=== PATIENT | male | born 1935 | race Caucasian/White ===

== ENCOUNTER 2019-05-18 18:53 | Inpatient (IN) | payer MEDICARE, OTHER ==
[~2019-05-18] VITALS: Ht 178 cm; Wt 78.0 kg
[~2019-05-18 18:53] MED LIST: GBPN300C PO; LEVO500T69 PO; PRD10T PO; RT-COMBINH IH; SIMV40TA4 PO; TERA5CAP10 PO; VERA200C2 PO
[2019-05-18] MEDS ORDERED: RT-ALBUTEROL SULF 2.5 MG/3 ML PRE-MIX VIAL INH STA (18:57)
[2019-05-18] MEDS ORDERED: methylPREDNISolone 125 MG (Solu-MEDROL) VIAL IV STA (18:57)
[2019-05-18] MEDS ORDERED: RT-ALBUTEROL/IPRATROPIUM 3 ML (DUONEB) VIAL INH ONE (19:00)
[2019-05-18] MEDS ORDERED: DEXAMETHASONE 4 MG/ML SDV (DECADRON) ONE (19:02)
[2019-05-18 19:15] LABS: BASOPHILS % (AUTO) 0 % (0-10); EOSINOPHILS # (AUTO) 0.2 10^3/uL (0.0-0.3); EOSINOPHILS % (AUTO) 1 % (0-10); LYMPHOCYTES # (AUTO) 0.4 X 10^3 (1.0-4.0); LYMPHOCYTES % (AUTO) 3 % (12-44); MEAN CORPUSCULAR HEMOGLOBIN 30 PG (25-34); MEAN CORPUSCULAR HGB CONC 31 G/DL (32-36); MEAN CORPUSCULAR VOLUME 99 FL (80-99); MEAN PLATELET VOLUME 8.9 FL (7.4-10.4); MONOCYTES # (AUTO) 1.1 X 10^3 (0.0-1.0); MONOCYTES % (AUTO) 9 % (0-12); NEUTROPHILS # (AUTO) 10.4 X 10^3 (1.8-7.8); NEUTROPHILS % (AUTO) 87 % (42-75); PLATELET COUNT 132 10^3/uL (130-400); RED CELL DISTRIBUTION WIDTH 18.5 % (10.0-14.5)
[2019-05-18] MEDS ORDERED: DEXAMETHASONE 4 MG/ML SDV (DECADRON) IH ONE (19:15)
[2019-05-18 19:16] LABS: HEMATOCRIT 20 % (40-54); HEMOGLOBIN 6.2 G/DL (13.3-17.7)
[2019-05-18 19:22] LABS: ABG BASE EXCESS 1.2 MMOL/L (-2.5-2.5); ABG OXYGEN SATURATION 99 % (94-100); ABG PCO2 43 MMHG (35-45); ABG PH 7.39 (7.37-7.43); ABG PO2 118 MMHG (79-93); ABG TCO2 26.6 MMOL/L (21.0-31.0)
[2019-05-18 19:26] LABS: ALLENS TEST POSITIVE; INSPIRED O2 6; PATIENT TEMP 38.1; VENTILATOR NO
[2019-05-18 19:27] LABS: INR 1.2 (0.8-1.4); PROTHROMBIN TIME PATIENT 15.2 SEC (12.2-14.7)
[2019-05-18 19:33] LABS: ALBUMIN 3.2 GM/DL (3.2-4.5); BILIRUBIN,TOTAL 0.8 MG/DL (0.1-1.0); CALCIUM 7.8 MG/DL (8.5-10.1); MAGNESIUM 1.9 MG/DL (1.6-2.4); TOTAL PROTEIN 5.9 GM/DL (6.4-8.2)
[2019-05-18 19:40] LABS: CREATINE KINASE MB 1.4 NG/ML (<6.6)
[2019-05-18] MEDS ORDERED: lisINopril 20 MG (PRINIVIL) TABLET PO ONE (19:45)
[2019-05-18 19:51] LABS: CREATININE SERUM 2.62 MG/DL (0.60-1.30)
--- NOTE | 2019-05-18 19:51 | Diagnostic Imaging Report ---
INDICATION: Shortness of air. COMPARISON: 09/05/2010. FINDINGS: The heart is enlarged increased from prior. There is development of at least small pleural effusions greater left. There has been formation of perihilar and bibasilar airspace opacities as well as some zones of partial atelectasis. The lung disease could be pneumonia or edema. IMPRESSION: Perihilar and basilar airspace disease, edema versus pneumonia with increased heart size and new pleural effusions greater left. Dictated by: Dictated on workstation # [id number]
[2019-05-18] MEDS ORDERED: CEFEPIME INJECTION 2,000 MG in WATER (STERILE) FOR INJECTION 20 ML IV ONE (20:00)
[2019-05-18] MEDS ORDERED: FUROSEMIDE 40 MG/4 ML INJ (LASIX) IVP ONE (20:00)
[2019-05-18 20:05] LABS: LYMPHOCYTES % (MANUAL) 1 %; MONOCYTES % (MANUAL) 3 %; NEUTROPHILS % (MANUAL) 96 %
[2019-05-18 20:06] LABS: ANISOCYTOSIS MODERATE; ELLIPT/OVALOCYTES MODERATE; POLYCHROMASIA MODERATE
[2019-05-18] MEDS ORDERED: PANTOPRAZOLE 40 MG (PROTONIX) VIAL IV ONE (20:15)
[2019-05-18] MEDS ORDERED: NS IV 1000 ML 1,000 ML IV SCH (20:18)
[2019-05-18 20:23] VITALS: BP 158/98
[2019-05-18 20:30] VITALS: BP 155/56
[2019-05-18] MEDS ORDERED: LEVOFLOXACIN 750 MG/150 ML IV 150 ML IV ONE (20:30)
[2019-05-18 20:45] VITALS: BP 164/72
[2019-05-18] MEDS ORDERED: TIMO5DRO5 OU (20:59)
[2019-05-18] MEDS ORDERED: MIRT15TA6 PO (20:59)
[2019-05-18] MEDS ORDERED: ISOS30TA3 PO (20:59)
[2019-05-18] MEDS ORDERED: POTA10TA36 PO (20:59)
[2019-05-18] MEDS ORDERED: HYDR-3923 (20:59)
[2019-05-18] MEDS ORDERED: CYAN-41 PO (20:59)
[2019-05-18] MEDS ORDERED: METH5TAB5 PO (20:59)
[2019-05-18] MEDS ORDERED: AMLO10TA7 PO (20:59)
[2019-05-18] MEDS ORDERED: FERR-84 PO (20:59)
[2019-05-18] MEDS ORDERED: GUAI600T43 (20:59)
[2019-05-18] MEDS ORDERED: BUME1TAB8 (20:59)
[2019-05-18] MEDS ORDERED: PANT40TA3 PO (20:59)
[2019-05-18] MEDS ORDERED: TERA5CAP3 PO (20:59)
[2019-05-18] MEDS ORDERED: CARV25TA PO (20:59)
[2019-05-18 21:21] VITALS: BP 171/63
--- NOTE | 2019-05-18 21:23 | ED General ---
General Chief Complaint: Respiratory Problems Stated Complaint: PNEUMONIA, CHF, ELEVATED TROPONIN Nursing Triage Note: FEVER, COUGH, SOA Nursing Sepsis Screen: No Definite Risk Source of Information: Patient, Usp Records, Old Records, Spouse History of Present Illness Date Seen by Provider: May 18, 2019 Time Seen by Provider: 18:53 Initial Comments PT ARRIVES VIA EMS FROM [facility] [place]--NEB TREATMENT IN [facility] ESS ON ARRIVAL PT WAS HOSPITALIZED AT [facility] FOR THE LAST MONTH, FOR CHF AND PNEUMONIA, AND JUST ADMITTED TO THE [facility] ON HIS DISMISSAL FROM THE HOSPITAL ON Sunday05/14/19. PT WAS ALSO ANEMIC AND RECEIVED BLOOD TRANSFUSION WHILE IN HOSPITAL. PT WAS LIVING AT HOME IN [place], PRIOR TO THAT HOSPITALIZATION. PT WAS NOT ON HOME O2 PRIOR TO THAT ADMISSION, BUT REQUIRED O2 FOR ENTIRE HOSPITALIZATION AND HAS CONTINUED TO HAVE O2 CONTINUOUSLY SINCE HE WAS DISMISSED. PT BEGAN RUNNING FEVER THIS AFTERNOON--WAS 103, PER PT ALSO MORE SHORT OF BREATH AND HAVING INCREASED COUGH TODAY PT ALSO HAVING DROP IN O2 SATS TO MID TO LOW 80'S WITH MINIMAL EXERTION TODAY. NO SWELLING IN LEGS/ FEET OR PAIN IN CALVES NO CHEST PAIN OR PAIN WITH BREATHING. PT HAS HISTORY OF COPD, AND SMOKED 3 PPD FOR 60 YEARS, QUIT IN 2011. PT ALSO HAS HISTORY OF ETOH USE PT STATES HE HAS NOT HAD CARDIAC PROBLEMS OR HAD A CARDIAC CATH STATES HE HAD ECHOCARDIOGRAM WHILE IN HOSPITAL, BUT DOES NOT KNOW RESULTS. STATES HE HAS HAD EGD'S AND COLONOSCOPIES--IN THE PAST, PT STATES IT SHOWED SOME AREAS OF BLEEDING IN THE STOMACH, BUT MOST RECENT ONE DONE IN THE LAST MONTH WHILE IN HOSPITAL, WAS NORMAL ACCORDING TO PT AND . PT STATES HE HAD BRONCHOSCOPY WITH RECENT HOSPITALIZATION, WELL THORACENTESIS X 2 ON RIGHT, AND THORACENTESIS X 1 ON LEFT WITH LAST ADMIT. PCP: WAS DR. ANTHONY IN [place]. HAS BEEN ASSIGNED TO DR. HERNANDES SINCE ADMITTED TO [facility]. Allergies and Home Medications Allergies Coded Allergies: NKANo Known Allergies (Verified Allergy, Unknown, 11/22/05) Home Medications Simvastatin 40 Mg Tablet, 40 MG PO HS, (Reported) Patient Home Medication List Home Medication List Reviewed: Yes Review of Systems Review of Systems Constitutional: see HPI, fever EENTM: no symptoms reported Respiratory: see HPI, cough, short of breath, wheezing Cardiovascular: No chest pain, No edema, No palpitations, No syncope Gastrointestinal: no symptoms reported; No abdominal pain, No constipation, No diarrhea, No hematemesis, No loss of appetite, No melena, No nausea, No vomiting Genitourinary: no symptoms reported Musculoskeletal: no symptoms reported Skin: no symptoms reported Psychiatric/Neurological: No Symptoms Reported Hematologic/Lymphatic: See HPI Immunological/Allergic: no symptoms reported Past Ocinurg-Eeznve-Yiyakb Hx Patient Social History Alcohol Use: Past History Recreational Drug Use: No Smoking Status: Former Smoker (3 PPD X 60 YEARS, QUIT 2011) Type Used: Cigarettes (3 PPD X 60 YEARS, QUIT 2011) 2nd Hand Smoke Exposure: Yes Recent Foreign Travel: No Contact w/Someone Who Travel: No Recent Infectious Disease Expo: No Recent Hopitalizations: Yes Physical Abuse: No Sexual Abuse: No Mistreated: No Fear: No Immunizations Up To Date Tetanus Booster (TDap): Unknown Seasonal Allergies Seasonal Allergies: No Past Medical History Surgeries: Yes (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; EGD'S/COLONOSCOPIES;BRONCH) Tonsillectomy Respiratory: Yes (BRONCHOSCOPY, THORACENTESIS X 2 ON RIGHT AND X 1 ON LEFT- [facility] 03/2019;) Pneumonia, COPD Cardiac: Yes (CHF; CAD--NO CARDIAC CATH OR INTERVENTION; AAA--NO SURGERY) Aneurysm, Coronary Artery Disease, High Cholesterol, Hypertension Neurological: Yes Stroke, TIA Reproductive Disorders: No Genitourinary: Yes (CHRONIC RENAL FAILURE/INSUFFICIENCY--NO DIALYSIS) Benign Prostatic Hyperpl, Prostate Problems, Renal Failure Gastrointestinal: Yes (EGD'S / COLONOSCOPIES--LAST ONE 03/2019 AT [place]; HEPATIC CYSTS) Gastroesophageal Reflux, Torres's Esophagus, Ulcer Musculoskeletal: Yes (SPINAL STENOSIS) Arthritis, Chronic Back Pain Endocrine: Yes Hyperthyroidism HEENT: Yes (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 oz. kg; 23.00 BMI Method: General Appearance: No Apparent Distress, WD/WN HEENT: PERRL/EOMI Neck: Full Range of Motion, Normal Inspection, Non Tender, Supple; No Carotid Bruit, No JVD Respiratory: No Accessory Muscle Use, No Respiratory Distress, Decreased Breath Sounds (DECREASED AERATION IN BASES BILATERALLY) Cardiovascular: Regular Rate, Rhythm, No Edema, No JVD, No Murmur, Normal Peripheral Pulses Gastrointestinal: Non Tender, Soft Back: No CVA Tenderness Extremity: Normal Capillary Refill, Normal Inspection, Normal Range of Motion, Non Tender, No Calf Tenderness, No Pedal Edema Neurologic/Psychiatric: Alert, Oriented x3, No Motor/Sensory Deficits, Normal Mood/Affect Skin: Normal Color, Warm/Dry; No Rash Progress/Results/Core Measures Suspected Sepsis Recent Fever Within 48 Hours: Yes Infection Criteria Present: Documented Infection New/Unexplained Altered Menta: No Sepsis Screen: No Definite Risk SIRS Temperature: Pulse: 70 Respiratory Rate: 16 Laboratory Tests 05/18/19 19:04: White Blood Count 12.0H Blood Pressure 155 /56 Mean: 89 Laboratory Tests 05/18/19 19:04: Creatinine 2.62H, INR Comment 1.2, Platelet Count 132, Total Bilirubin 0.8 Results/Orders Lab Results Laboratory Tests Test 05/18/19 19:04 05/18/19 19:19 05/18/19 22:54 Range/Units White Blood Count 12.0 H 4.3-11.0 10^3/uL Red Blood Count 2.04 L 4.35-5.85 10^6/uL Hemoglobin 6.2 *L 13.3-17.7 G/DL Hematocrit 20 *L 40-54 % Mean Corpuscular Volume 99 80-99 FL Mean Corpuscular Hemoglobin 30 25-34 PG Mean Corpuscular Hemoglobin Concent 31 L 32-36 G/DL Red Cell Distribution Width 18.5 H 10.0-14.5 % Platelet Count 132 130-400 10^3/uL Mean Platelet Volume 8.9 7.4-10.4 FL Neutrophils (%) (Auto) 87 H 42-75 % Lymphocytes (%) (Auto) 3 L 12-44 % Monocytes (%) (Auto) 9 0-12 % Eosinophils (%) (Auto) 1 0-10 % Basophils (%) (Auto) 0 0-10 % Neutrophils # (Auto) 10.4 H 1.8-7.8 X 10^3 Lymphocytes # (Auto) 0.4 L 1.0-4.0 X 10^3 Monocytes # (Auto) 1.1 H 0.0-1.0 X 10^3 Eosinophils # (Auto) 0.2 0.0-0.3 10^3/uL Basophils # (Auto) 0.0 0.0-0.1 10^3/uL Neutrophils % (Manual) 96 % Lymphocytes % (Manual) 1 % Monocytes % (Manual) 3 % Polychromasia MODERATE Basophilic Stippling MODERATE Anisocytosis MODERATE Elliptocytes MODERATE Prothrombin Time 15.2 H 12.2-14.7 SEC INR Comment 1.2 0.8-1.4 Activated Partial Thromboplast Time 36 H 24-35 SEC Sodium Level 143 135-145 MMOL/L Potassium Level 4.0 3.6-5.0 MMOL/L Chloride Level 107 98-107 MMOL/L Carbon Dioxide Level 24 21-32 MMOL/L Anion Gap 12 5-14 MMOL/L Blood Urea Nitrogen 55 H 7-18 MG/DL Creatinine 2.62 H 0.60-1.30 MG/DL Estimat Glomerular Filtration Rate 23 BUN/Creatinine Ratio 21 Glucose Level 165 H 70-105 MG/DL Calcium Level 7.8 L 8.5-10.1 MG/DL Corrected Calcium 8.4 L 8.5-10.1 MG/DL Magnesium Level 1.9 1.6-2.4 MG/DL Total Bilirubin 0.8 0.1-1.0 MG/DL Aspartate Amino Transf (AST/SGOT) 15 5-34 U/L Alanine Aminotransferase (ALT/SGPT) 25 0-55 U/L Alkaline Phosphatase 90 40-136 U/L Total Creatine Kinase 36 30-200 U/L Creatine Kinase MB 1.4 <6.6 NG/ML Myoglobin 123.8 H 10.0-92.0 NG/ML Troponin I 0.143 H <0.028 NG/ML B-Type Natriuretic Peptide 2149.4 H <100.0 PG/ML Total Protein 5.9 L 6.4-8.2 GM/DL Albumin 3.2 3.2-4.5 GM/DL Blood Gas Puncture Site LEFT RADIAL Blood Gas Patient Temperature 38.1 Arterial Blood pH 7.39 7.37-7.43 Arterial Blood Partial Pressure CO2 43 35-45 MMHG Arterial Blood Partial Pressure O2 118 H 79-93 MMHG Arterial Blood HCO3 25 23-27 MMOL/L Arterial Blood Total CO2 26.6 21.0-31.0 MMOL/L Arterial Blood Oxygen Saturation 99 94-100 % Arterial Blood Base Excess 1.2 -2.5-2.5 MMOL/L Javi Test POSITIVE Blood Gas Ventilator Setting NO Blood Gas Inspired Oxygen 6 Urine Color YELLOW Urine Clarity CLEAR Urine pH 6.0 5-9 Urine Specific Gipsy >=1.030 1.016-1.022 Urine Protein NEGATIVE NEGATIVE Urine Glucose (UA) NEGATIVE NEGATIVE Urine Ketones NEGATIVE NEGATIVE Urine Nitrite NEGATIVE NEGATIVE Urine Bilirubin NEGATIVE NEGATIVE Urine Urobilinogen 0.2 < = 1.0 MG/DL Urine Leukocyte Esterase NEGATIVE NEGATIVE Urine RBC (Auto) NEGATIVE NEGATIVE Urine RBC NONE /HPF Urine WBC NONE /HPF Urine Squamous Epithelial Cells 0-2 /HPF Urine Crystals NONE /LPF Urine Bacteria FEW H /HPF Urine Casts PRESENT /LPF Urine Hyaline Casts RARE /LPF Urine Mucus NEGATIVE /LPF Urine Yeast FEW H /HPF Urine Culture Indicated YES Micro Results Microbiology 05/18/19 Influenza Types A,B Antigen (SHARONA) - Final, Complete My Orders Orders - FREDY BARBOZA DO Ed Iv/Invasive Line Start (05/18/19 18:57) Ekg Tracing (05/18/19 18:57) O2 (05/18/19 18:57) Monitor-Rhythm Ecg Trace Only (05/18/19 18:57) Chest 1 View, Ap/Pa Only (05/18/19 18:57) Arterial Blood Gas (05/18/19 18:57) BNP (05/18/19 18:57) Cbc With Automated Diff (05/18/19 18:57) Comprehensive Metabolic Panel (05/18/19 18:57) Creatine Kinase (05/18/19 18:57) Creatine Kinase Mb (05/18/19 18:57) Magnesium (05/18/19 18:57) Protime With Inr (05/18/19 18:57) Partial Thromboplastin Time (05/18/19 18:57) Ua Culture If Indicated (05/18/19 18:57) Blood Culture (05/18/19 18:57) Influenza A And B Antigens (05/18/19 18:57) Myoglobin Serum (05/18/19 18:57) Troponin I (05/18/19 18:57) Albuterol Pre-Mix Nebs (Rt) (Proventil (05/18/19 18:57) Albuterol/Ipra Inhalation Soln (Duoneb I (05/18/19 19:00) Rt Request For Service (05/18/19 18:57) Methylprednisolone Sod Succ (Solu-Medrol (05/18/19 18:57) Svn Small Volume Nebulizer (05/18/19 18:57) Svn Small Volume Nebulizer (05/18/19 18:57) Dexamethasone Injection (Decadron Inject (05/18/19 19:15) Dexamethasone Injection (Decadron Inject (05/18/19 19:02) Manual Differential (05/18/19 19:04) Red Cells Leukocytes Reduced (05/18/19 19:21) Type And Screen (05/18/19 19:21) Lisinopril Tablet (Zestril Tablet) (05/18/19 19:45) Furosemide Injection (Lasix Injection) (05/18/19 20:00) Cefepime Injection (Maxipime Injection) (05/18/19 20:00) Pantoprazole Injection (Protonix Injecti (05/18/19 20:15) Ed Iv/Invasive Line Start (05/18/19 20:18) Ns Iv 1000 Ml (Sodium Chloride 0.9%) (05/18/19 20:18) Levofloxacin 750 Mg/150 Ml Iv (Levaquin (05/18/19 20:30) Urine Culture (05/18/19 22:54) Medications Given in ED Current Medications Medications Dose Ordered Sig/Laura Route Start Time Stop Time Status Last Admin Dose Admin Cefepime HCl 2000 mg/Sterile Water 20 ml @ 240 mls/hr ONCE ONCE IV 05/18/19 20:00 05/18/19 20:04 DC 05/18/19 19:55 240 MLS/HR Furosemide 80 mg ONCE ONCE IVP 05/18/19 20:00 05/18/19 20:01 DC 05/18/19 19:55 80 MG Vital Signs/I&O 05/18/19 05/18/19 05/18/1905/18/19 18:54 18:54 20:23 20:30 Temp 38.1 37.4 37.5 Pulse 76 71 70 Resp 18 16 16 B/P (MAP) 171/79 (109) 158/98 155/56 Pulse Ox 97 97 97 91 O2 Delivery Room Air Nasal Cannula Nasal Cannula O2 Flow Rate 2.00 5.00 05/18/19 05/18/19 05/18/19 05/18/19 20:45 21:21 21:30 22:49 Temp 37.4 36.9 36.9 36.8 Pulse 72 69 69 65 Resp 21 14 26 23 B/P (MAP) 164/72 171/63 176/75 175/67 Pulse Ox 93 93 92 95 O2 Delivery Nasal Cannula Nasal Cannula Nasal Cannula Nasal Cannula O2 Flow Rate 5.00 5.00 5.00 5.00 05/18/19 05/18/19 05/19/19 05/19/19 23:15 23:21 00:00 00:00 Pulse 67 77 63 B/P (MAP) 176/73 (107) 164/62 (96) Pulse Ox 93 96 95 O2 Delivery Nasal Cannula Nasal Cannula Nasal Cannula O2 Flow Rate 5.00 5.00 5.00 05/19/19 05/19/19 05/19/19 05/19/19 00:23 00:23 00:23 00:57 Temp 37.0 38.1 Pulse 63 76 Resp 16 B/P (MAP) 156/62 Pulse Ox 96 97 O2 Delivery Nasal Cannula O2 Flow Rate 4.00 05/19/19 01:00 Pulse 68 05/19/19 00:00 Intake Total 20 ml Balance 20 ml Capillary Refill : Less Than 3 Seconds Blood Pressure Mean: 89 Progress Note : Progress Note NO DETERIORATION IN PT'S CONDITION DURING ER STAY. O2 SATS IN MID 90'S ON O2 PT STATES HE FEELS BETTER. PT AND REPORT THAT PT'S HGB HAS NEVER BEEN THIS LOW IN THE PAST, DESPITE RECENT TRANSFUSIONS, WHILE IN HOSPITAL AT [place] IN THE LAST MONTH. PT DENIES ANY GI SYMPTOMS OF ANY KIND. ECG Initial ECG Impression Date: May 18, 2019 Initial ECG Impression Time: 19:31 Initial ECG Rate: 73 Initial ECG Rhythm: Normal Sinus Initial ECG Impression: Nonspecific Changes (ST DEPRESSION, NEGATIVE T WAVES V2-V6) Diagnostic Imaging Comments CXR--PERIHILAR AND BASE AIRSPACE DISEASE--EDEMA VS PNEUMONIA, WITH INCREASE IN HEART SIZE AND NEW PLEURAL EFFUSIONS -LEFT > RIGHT, PER RADIOLOGIST REPORT AT 1951 Reviewed: Reviewed by Me Departure Communication (Admissions) 1954--SPOKE WITH DR. MCGILL, HOSPITALIST, ACCEPTS PT FOR ADMIT ( PT PREFERS TO STAY HERE, DOES NOT WANT TO GO BACK TO [place] AT THIS TIME ). ORDERS NOTED 2009--SPOKE WITH DR. CHAVEZ, HE ADVISES TO HOLD ANY ANTICOAGULATION AT THIS TIME, BASED ON PT'S SEVERE ANEMIA, WITHOUT DEFINITE ETIOLOGY AT THIS TIME, AND REPORTED HISTORY OF GASTRIC BLEEDING AREAS NOTED ON A PRIOR EGD AT [place], WITH RECENT TRANSFUSION AND LOWER HGB THAN HE HAS HAD IN THE PAST. WILL OBTAIN ECHOCARDIOGRAM IN AM. Impression Primary Impression: CHF (congestive heart failure) Additional Impressions: COPD EXACERBATION WITH HYPOXIA Pneumonia Elevated troponin Severe anemia CHRONIC RENAL FAILURE/INSUFFICIENCY Disposition: ADMITTED INPATIENT Condition: Improved Admissions Decision to Admit Reason: Admit from ER (General) Decision to Admit/Date: May 18, 2019 Time/Decision to Admit Time: 20:00 Departure-Patient Inst. Referrals: IRINA ANTHONY MD (PCP/Family) Primary Care Physician FREDY BARBOZA DO May 18, 2019 21:23
[2019-05-18 21:30] VITALS: BP 176/75
--- NOTE | 2019-05-18 22:55 | NUR ---
BLOOD TRANSFUSION CONTINUED TO FLOOR
[2019-05-18 23:01] LABS: BILIRUBIN,URINE NEGATIVE (NEGATIVE); CLARITY,URINE CLEAR; COLOR,URINE YELLOW; GLUCOSE, URINE (UA) NEGATIVE (NEGATIVE); KETONES,URINE NEGATIVE (NEGATIVE); LEUKOCYTE ESTERASE ,URINE NEGATIVE (NEGATIVE); NITRITE,URINE NEGATIVE (NEGATIVE); PROTEIN,URINE NEGATIVE (NEGATIVE)
[2019-05-18 23:15] VITALS: BP 176/73
[2019-05-18 23:16] LABS: BACTERIA,URINE FEW /HPF; HYALINE CASTS, URINE RARE /LPF; SQUAMOUS EPITHELIAL CELL,UR 0-2 /HPF; YEAST,URINE FEW /HPF
[2019-05-19] VITALS (9 sets, daily range): BP systolic 156–184; BP diastolic 62–79
[2019-05-19] MEDS ORDERED: FUROSEMIDE 40 MG/4 ML INJ (LASIX) ONE (01:13)
[2019-05-19] MEDS ORDERED: FUROSEMIDE 40 MG/4 ML INJ (LASIX) IVP ONE (01:15)
[2019-05-19] MEDS ORDERED: ACETAMINOPHEN 325 MG TABLET PO PRN ×2 (01:15→16:30)
[2019-05-19] MEDS ORDERED: RT-ALBUTEROL SULF 2.5 MG/3 ML PRE-MIX VIAL INH PRN (01:30)
[2019-05-19] MEDS ORDERED: morphine INJ 4 MG/ML 1 ML (VIAL/SYRINGE) IV PRN (01:45)
[2019-05-19] MEDS ORDERED: NITROGLYCERIN 0.4 MG SL TABS BTL 25'S SL PRN (01:45)
[2019-05-19] MEDS ORDERED: NS IV 1000 ML 1,000 ML IV SCH (01:45)
[2019-05-19] MEDS ORDERED: ONDANSETRON 4 MG/2 ML (SDV) Z0FRAN IV PRN (01:45)
[2019-05-19] MEDS: methylPREDNISolone 125 MG (Solu-MEDROL) VIAL IV SCH ×2 (03:13→06:47)
[2019-05-19 03:49] LABS: BASOPHILS % (AUTO) 0 % (0-10); EOSINOPHILS % (AUTO) 0 % (0-10); HEMATOCRIT 27 % (40-54); HEMOGLOBIN 8.2 G/DL (13.3-17.7); LYMPHOCYTES # (AUTO) 0.1 X 10^3 (1.0-4.0); LYMPHOCYTES % (AUTO) 1 % (12-44); MEAN CORPUSCULAR HEMOGLOBIN 29 PG (25-34); MEAN CORPUSCULAR HGB CONC 31 G/DL (32-36); MEAN CORPUSCULAR VOLUME 95 FL (80-99); MEAN PLATELET VOLUME 9.6 FL (7.4-10.4); MONOCYTES # (AUTO) 0.1 X 10^3 (0.0-1.0); MONOCYTES % (AUTO) 1 % (0-12); NEUTROPHILS # (AUTO) 9.9 X 10^3 (1.8-7.8); NEUTROPHILS % (AUTO) 97 % (42-75); PLATELET COUNT 124 10^3/uL (130-400); RED CELL DISTRIBUTION WIDTH 18.3 % (10.0-14.5); WHITE BLOOD COUNT 10.2 10^3/uL (4.3-11.0)
[2019-05-19 04:14] LABS: ALBUMIN 3.2 GM/DL (3.2-4.5); BILIRUBIN,TOTAL 1.3 MG/DL (0.1-1.0); CALCIUM 7.7 MG/DL (8.5-10.1); CREATININE SERUM 2.42 MG/DL (0.60-1.30); TOTAL PROTEIN 6.1 GM/DL (6.4-8.2)
[2019-05-19] MEDS ORDERED: PANTOPRAZOLE 40 MG (PROTONIX) VIAL IV SCH (07:00)
--- NOTE | 2019-05-19 08:07 | Diagnostic Imaging Report ---
INDICATION: Pneumonia, hypoxia and anemia. Upright portable AP view of the chest is obtained. Comparison is made to study of one day earlier. There is continued cardiomegaly. There has been an increase in overall airspace disease in the lungs, greater on the right. There is continued blunting of the left costophrenic sulcus. No pneumothorax is identified. IMPRESSION: Increasing edema and/or pneumonia, greater on the right with stable cardiomegaly and mild left pleural fluid or thickening. Dictated by: Dictated on workstation # [id number]
[2019-05-19] MEDS: methylPREDNISolone 40 MG/ML (Solu-MEDROL) VIAL IV SCH ×2 (11:15→18:38)
[2019-05-19] MEDS ORDERED: HYDR-3924 PO (14:34)
[2019-05-19] MEDS ORDERED: ATOR40TA70 PO (14:35)
[2019-05-19] MEDS ORDERED: BUME2TAB7 PO (14:36)
[2019-05-19] MEDS ORDERED: ALBU2.5V4 INH (14:45)
[2019-05-19] MEDS ORDERED: GUAI600T43 PO (14:45)
--- NOTE | 2019-05-19 14:47 | NUR ---
ENTERED [facility] REC USING THE MAR FROM [facility]
[2019-05-19] MEDS ORDERED: POLYETHYLENE GLYCOL 17 GM (MIRALAX) PACK PO PRN (16:30)
[2019-05-19] MEDS ORDERED: ONDANSETRON 4 MG (ZOFRAN) ORAL DISSOLVE TAB PO PRN (16:30)
[2019-05-19] MEDS ORDERED: BISACODYL 10 MG SUPP (DULCOLAX) PR PRN (16:30)
[2019-05-19] MEDS ORDERED: ANTACID SUSP 30 ML UDC (MYLANTA) PO PRN (16:30)
[2019-05-19] MEDS ORDERED: FUROSEMIDE 40 MG/4 ML INJ (LASIX) IVP NR (16:30)
--- NOTE | 2019-05-19 16:37 | History & Physical-Hospitalist ---
History of Present Illness HPI/Chief Complaint Ignacio Moulton is an 83-year-old male with past medical history of hypertension, hyperlipidemia, GERD, hyperthyroidism, chronic kidney disease, heart failure, who presented with fever, shortness of breath, and cough. He was recently hospitalized at [facility] in [place] for about a month. At that time he was being treated for pneumonia, heart failure, and GI bleeding. He has been at [facility] since that time. He reports that he had a couple endoscopies while he was in the hospital. He reports that he has had ongoing melena since that time. He currently denies any chest pain. He denies any nausea, vomiting, abdominal pain, or diarrhea. Source: patient Exam Limitations: no limitations Date Seen 05/19/19 Time Seen by a Provider: 08:30 Attending Physician Lashae Mederos MD PCP Lukasz Leung MD Referring Physician Date of Admission May 18, 2019 at 20:00 Home Medications & Allergies Home Medications Reviewed patient Home Medication Reconciliation performed by pharmacy medication reconciliations medical records technician and/or nursing. Patients Allergies have been reviewed. Allergies Allergies Coded Allergies NKANo Known Allergies (Verified Allergy, Unknown, 11/22/05) Past Knqsthi-Nnimzh-Xdowpl Hx Past Med/Social Hx: Reviewed Nursing Past Med/Soc Hx Patient Social History Alcohol Use: Past History Recreational Drug Use: No Smoking Status: Former Smoker (3 PPD X 60 YEARS, QUIT 2011) Type Used: Cigarettes (3 PPD X 60 YEARS, QUIT 2011) 2nd Hand Smoke Exposure: Yes Recent Foreign Travel: No Contact w/other who traveled: No Recent Hopitalizations: Yes Recent Infectious Disease Expo: No Immunizations Up To Date Tetanus Booster (TDap): Unknown Date of Pneumonia Vaccine: Mar 28, 2019 Date of Influenza Vaccine: Mar 28, 2019 Seasonal Allergies Seasonal Allergies: No Past Medical History Surgeries: Tonsillectomy Cardiac: Aneurysm, Coronary Artery Disease, High Cholesterol, Hypertension Neurological: Stroke, TIA Reproductive: No Genitourinary: Benign Prostatic Hyperpl, Prostate Problems, Renal Failure Gastrointestinal: Gastroesophageal Reflux, Torres's Esophagus, Ulcer Musculoskeletal: Arthritis, Chronic Back Pain Endocrine: Hyperthyroidism HEENT: Glaucoma Psychosocial: Depression History of Blood Disorders: Yes (ANEMIA) Adverse Reaction to Blood Ma: No Review of Systems Constitutional: fever, malaise EENTM: no symptoms reported Respiratory: cough, short of breath Cardiovascular: no symptoms reported Gastrointestinal: no symptoms reported Genitourinary: no symptoms reported Musculoskeletal: no symptoms reported Skin: no symptoms reported Psychiatric/Neurological: No Symptoms Reported Physical Exam Physical Exam Vital Signs Vital Signs - First Documented 05/18/19 05/18/19 05/19/19 18:54 19:00 16:06 Temp 38.1 Pulse 76 Resp 18 B/P (MAP) 171/79 (109) Pulse Ox 97 O2 Delivery Room Air O2 Flow Rate 6.00 FiO2 36 Capillary Refill : Less Than 3 Seconds Height, Weight, BMI Height: '" Weight: lbs. oz. kg; 23.00 BMI Method: General Appearance: No Apparent Distress, WD/WN HEENT: PERRL/EOMI, Pharynx Normal Neck: Normal Inspection, Supple Respiratory: Lungs Clear, Normal Breath Sounds, No Respiratory Distress Cardiovascular: Regular Rate, Rhythm, No Murmur Gastrointestinal: Normal Bowel Sounds, Non Tender, Soft Extremity: Normal Inspection, Non Tender, Pedal Edema Neurologic/Psychiatric: Alert, Oriented x3, No Motor/Sensory Deficits, Normal Mood/Affect Skin: Warm/Dry, Pallor Lymphatic: No Adenopathy Results Results/Procedures Labs Laboratory Tests 05/18/19 19:04 05/19/19 03:16 Patient resulted labs reviewed. Imaging: Reviewed Imaging Report Assessment/Plan Admission Diagnosis Healthcare associated pneumonia Admission Status: Inpatient Order (span 2 midnights) Reason for Inpatient Admission: HCAP requiring IV antibiotics Assessment and Plan HCAP Acute respiratory failure with hypoxia Acute heart failure exacerbation, unspecified type NSTEMI Not septic Chest x-ray concerning for pneumonia versus pulmonary edema Procalcitonin elevated at 0.25 Started on cefepime and Levaquin Discontinue Levaquin BNP elevated greater than 2000 on admission Given a dose of IV Lasix in the emergency room Repeat diuretics today Troponin mildly elevated at 0.1, continue to trend Consult cardiology MAT protocol Oxygen supplementation as needed to maintain saturation greater than 90 percent Anemia Melena GERD Recent endoscopies Soraya Iglesias IV PPI twice a day Consult surgery Status post 2 units PRBC Transfuse as needed to maintain hemoglobin greater than 8 in setting of NSTEMI Acute kidney injury superimposed on chronic kidney disease Creatinine 2.6 on arrival, improved to 2.4 this morning Continue Lasix Avoid nephrotoxins as able Essential hypertension Hyperlipidemia Hyperthyroidism Continue home meds DVT prophylaxis: Holding in setting of GI bleeding Diagnosis/Problems Diagnosis/Problems (1) HCAP (healthcare-associated pneumonia) Status: Acute (2) Acute respiratory failure with hypoxia Status: Acute (3) NSTEMI (non-ST elevation myocardial infarction) Status: Acute (4) Anemia Status: Acute Qualifiers: Iron deficiency anemia type: chronic blood loss (5) Melena Status: Chronic (6) Acute kidney injury superimposed on chronic kidney disease Status: Acute (7) Essential hypertension Status: Chronic (8) Hyperlipidemia Status: Chronic (9) Hyperthyroidism Status: Chronic Clinical Quality Measures DVT/VTE Risk/Contraindication: Risk Factor Score Per Nursin RFS Level Per Nursing on Admit: 4+=Very High JOLIE CATALAN MD May 19, 2019 16:37
[2019-05-19] MEDS: RT-ALBUTEROL/IPRATROPIUM 3 ML (DUONEB) VIAL INH SCH ×2 (18:06→21:06)
[2019-05-19] MEDS ORDERED: CEFEPIME 2,000 MG/SWFI 20 ML IV PUSH IV SCH ×2 (20:00)
[2019-05-19] MEDS ORDERED: RT-ALBUTEROL/IPRATROPIUM 3 ML (DUONEB) VIAL INH PRN (20:00)
--- NOTE | 2019-05-19 20:05 | Consultation-Cardiology ---
HPI-Cardiology Cardiology Consultation: Date of Consultation 05/19/19 Date of Admission Attending Physician Lashae Mederos MD Admitting Physician Lukasz Leung MD Consulting Physician Reyes BRUMFIELD MD HPI: Time Seen by a Provider: 09:45 Chief Complaint: Shortness of breath This is a 83-year-old gentleman with history of congestive heart failure, anemia, hyperlipidemia, hypertension. Worked up extensively at [facility]. He presents for shortness of breath and possible pneumonia. Also has fever and cough. Was found to be hypoxic on admission to the ER. Patient has previous history of smoking he smoked for 60 years. He quit 7 years ago. His father has any history of an aneurysm and mother has congestive heart failure. The patient denies any chest pain, palpitations, syncope or near syncope. Review of Systems-Cardiology Review of Systems Constitutional: As described under HPI; No As described under HPI, No no symptoms reported, No chills, No fever, No lightheadedness Eyes: No As described under HPI, No no symptoms reported, No blindness, No blurred vision, No contact lenses, No drainage, No decreased acuity, No foreign body sensation, No pain, No vision change Ears/Nose/Throat: No As described under HPI, No no symptoms reported, No chronic hearing loss, No ear discharge, No ear pain, No nasal drainage, No ulcerations Respiratory: No no symptoms reported; As described under HPI; No As described under HPI, No cough, No orthopnea; shortness of breath; No SOB with excertion Cardiovascular: No no symptoms reported; As described under HPI; No As described under HPI, No chest pain, No edema, No irregular heart rate, No lightheadedness, No palpitations Gastrointestinal: No no symptoms reported, No As described under HPI, No abdomen distended, No abdominal pain, No blood streaked bowels, No constipation, No diarrhea, No nausea, No vomiting, No stool coloration changes Genitourinary: No As described under HPI, No burning, No dysuria, No discharge, No frequency, No flank pain, No hematuria, No urgency Skin: No rash, No skin related problems, No ulcerations Psychiatric/Neurological: No anxiety, No depression, No seizure, No focal weakness, No syncope Hematologic: anemia; No bleeding abnormalities MLL-Kqfngr-Hstuad Hx Patient Social History Alcohol Use: Past History Recreational Drug Use: No Smoking Status: Former Smoker (3 PPD X 60 YEARS, QUIT 2012) Type Used: Cigarettes (3 PPD X 60 YEARS, QUIT 2011) 2nd Hand Smoke Exposure: Yes Recent Foreign Travel: No Recent Infectious Disease Expo: No Hospitalization with Isolation: Denies Immunizations Up To Date Tetanus Booster (TDap): Unknown Date of Pneumonia Vaccine: Mar 28, 2019 Date of Influenza Vaccine: Mar 28, 2019 Past Medical History PMH As described under Assessment. Allergies and Home Medications Allergies Coded Allergies: NKANo Known Allergies (Verified Allergy, Unknown, 11/22/05) Home Medications Albuterol Sulfate 2.5 Mg/3 Ml Vial.neb, 2.5 MG INH PRN PRN for SHORTNESS OF BREATH, (Reported) Amlodipine Besylate 10 Mg Tablet, 10 MG PO DAILY, (Reported) Atorvastatin Calcium 40 Mg Tablet, 40 MG PO HS, (Reported) Bumetanide 2 Mg Tablet, 2 MG PO DAILY, (Reported) Carvedilol 25 Mg Tablet, 25 MG PO BID, (Reported) Cyanocobalamin (Vitamin B-12) 1,000 Mcg Tablet, 1,000 MCG PO DAILY, (Reported) Ferrous Sulfate 325 Mg Tablet, 650 MG PO DAILY, (Reported) TAKES 2 (325MG ) TABS DAILY Guaifenesin 600 Mg Tab.er.12h, 1,200 MG PO BID PRN for COUGH, (Reported) TAKES 2 (600MG) TABS Hydralazine HCl 50 Mg Tablet, 50 MG PO TID, (Reported) Isosorbide Mononitrate 30 Mg Tab.er.24h, 30 MG PO DAILY, (Reported) Methimazole 5 Mg Tablet, 7.5 MG PO DAILY, (Reported) TAKE 1 & OF A 5MG TAB TO EQUAL 7.5MG DAILY Mirtazapine 15 Mg Tablet, 15 MG PO HS, (Reported) Pantoprazole Sodium 40 Mg Tablet.dr, 40 MG PO BID, (Reported) Potassium Chloride 10 Meq Tab.er.prt, 10 MEQ PO DAILY, (Reported) Terazosin HCl 5 Mg Capsule, 5 MG PO DAILY, (Reported) Timolol Maleate 5 Ml Drops, 1 DROP OU BID, (Reported) Patient Home Medication List Home Medication List Reviewed: Yes Physical Exam-Cardiology Physical Exam Vital Signs/I&O 05/20/19 05/20/19 05/20/19 05/20/19 03:32 04:00 07:18 07:28 Pulse 59 60 Resp 24 B/P (MAP) 165/60 (95) Pulse Ox 94 90 O2 Delivery Nasal Cannula Nasal Cannula Nasal Cannula O2 Flow Rate 4.00 4.00 4.00 05/20/19 05/20/19 05/20/19 05/20/19 07:30 08:35 09:31 10:27 Temp 36.7 Pulse 64 Resp 20 B/P (MAP) 163/60 (94) Pulse Ox 99 97 O2 Delivery Nasal Cannula Nasal Cannula Nasal Cannula O2 Flow Rate 4.00 4.00 4.00 05/20/19 05/20/19 05/20/19 11:30 12:00 13:53 Temp 36.6 Pulse 62 Resp 19 B/P (MAP) 151/59 (89) Pulse Ox 94 95 O2 Delivery Nasal Cannula Nasal Cannula O2 Flow Rate 4.00 4.00 05/20/19 00:00 Intake Total 800 ml Output Total 900 ml Balance -100 ml Capillary Refill : Less Than 3 Seconds Constitutional: appears stated age, AAO x 3; No apparent distress; well- developed, well-nourished HEENT: PERRL; No discharge; hearing is well preserved, oral hygience is good; No ulceration, No xanthelasmas are seen Neck: No carotid bruit; carotid pulses are 2 + bilaterally Respiratory: chest is bilaterally symmetric, lungs clear to auscultation Cardiovascular: regular rate-rhythm, S1 and S2 Gastrointestinal: soft, audible bowel sounds; No spleenomegaly Rectal: deferred Extremities: normal range of motion, non-tender, normal inspection; No clubbing, No cyanosis; no lower extremity edema bilateral; No significant edema Neurologic/Psychiatric: no motor/sensory deficits, alert, normal mood/affect, oriented x 3, power is 5/5 both on sides Skin: normal color; No rash, No ulcerations Data Review Labs Laboratory Tests 05/19/19 15:10: Lab Scanned Report Transfusion Reaction Form 05/20/19 09:15: White Blood Count 7.0, Red Blood Count 2.98L, Hemoglobin 8.9L, Hematocrit 28L, Mean Corpuscular Volume 95, Mean Corpuscular Hemoglobin 30, Mean Corpuscular Hemoglobin Concent 32, Red Cell Distribution Width 18.2H, Platelet Count 128L, Mean Platelet Volume 9.1, Neutrophils (%) (Auto) 93H, Lymphocytes (%) (Auto) 4L, Monocytes (%) (Auto) 3, Eosinophils (%) (Auto) 0, Basophils (%) (Auto) 0, Neutr ophils # (Auto) 6.5, Lymphocytes # (Auto) 0.3L, Monocytes # (Auto) 0.2, Eosinophils # (Auto) 0.0, Basophils # (Auto) 0.0, Sodium Level 145, Potassium Level 3.5L, Chloride Level 106, Carbon Dioxide Level 28, Anion Gap 11, Blood Urea Nitrogen 53H, Creatinine 2.13H, Estimat Glomerular Filtration Rate 30, BUN/Creatinine Ratio 25, Glucose Level 159H, Calcium Level 7.9L, Corrected Calcium 8.6, Total Bilirubin 0.6, Aspartate Amino Transf (AST/SGOT) 11, Alanine Aminotransferase (ALT/SGPT) 23, Alkaline Phosphatase 89, Total Protein 6.0L, Albumin 3.1L Microbiology 05/18/19 Urine Culture - Preliminary, Resulted YEAST 05/18/19 Blood Culture - Preliminary, Resulted No growth 05/18/19 Influenza Types A,B Antigen (SHARONA) - Final, Complete ECG Impression ECG Initial ECG Rhythm: Normal Sinus Initial ECG Impression: Nonspecific Changes A/P-Cardiology Assessment/Admission Diagnosis Severe anemia, Possible type II myocardial infarction, Acute diastolic Congestive heart failure, Acute on chronic kidney injury, Hypercalcemia Plan Severe anemia, source of anemia unknown. We still do not know if there is active bleeding. He has received numerous transfusion but still continues to be anemic. Might require hematology consultation. Possible type II myocardial infarction, positive cardiac enzymes. Likely due to demand ischemia due to severe anemia. Coronary angiography and possible intervention are contraindicated detail source of anemia is known and bleeding can be ruled out. Acute diastolic Congestive heart failure, elevated BNP. Echocardiogram will be recommended. Acute on chronic kidney injury, Hypercalcemia Thank you for your consultation. Please call me if you have any questions. Estela Brumfield MD, FACP, FACC, FSCAI, FHRS, CCDS Interventional Cardiology Cardiac Electrophysiology Vascular Medicine and Endovascular Interventions Clinical Quality Measures DVT/VTE Risk/Contraindication: Risk Factor Score Per Nursin RFS Level Per Nursing on Admit: 4+=Very High Reyes BRUMFIELD MD May 19, 2019 20:05
[2019-05-19] MEDS: CEFEPIME 1,000 MG/SWFI 10 ML IV PUSH IV SCH ×2 (20:26)
[2019-05-19] MEDS: MIRTAZAPINE 15 MG (REMERON) TAB PO SCH (20:27)
[2019-05-19] MEDS: TIMOLOL MALEATE 0.5% 5 ML (TIMOPTIC) BTL OU SCH (20:27)
[2019-05-19] MEDS: PANTOPRAZOLE 40 MG (PROTONIX) VIAL IV SCH (20:27)
[2019-05-19] MEDS: CARVEDILOL 12.5 MG (COREG) TABLET PO SCH (20:27)
[2019-05-19] MEDS: hydrALAZINE (APRESOLINE) 25 MG TAB PO SCH (20:27)
[2019-05-19] MEDS: DOCUSATE SODIUM 100 MG (COLACE) CAP PO SCH (20:27)
[2019-05-19] MEDS: SENNOSIDES 8.6 MG (SENOKOT) TAB PO SCH (20:27)
[2019-05-19] MEDS ORDERED: NON-FORMULARY MEDICATION 1 EA EA (Mirtazapine 15 MG) PO SCH (21:00)
[2019-05-19] MEDS ORDERED: NON-FORMULARY MEDICATION 1 EA EA (Hydralazine HCl 50 MG) PO SCH (21:00)
[2019-05-19] MEDS ORDERED: NON-FORMULARY MEDICATION 1 EA EA (Carvedilol 25 MG) PO SCH (21:00)
--- NOTE | 2019-05-19 21:01 | NUR ---
THIS RN INFORMED BY [facility] THAT PT IS REFUSING BLOOD SUGAR CHECKS. THIS RN INFORMED PT OF REASONING FOR THE NEED FOR BLOOD SUGAR CHECKS. PT AGREED TO SPEAK TO HIS IN THE MORNING ON 05/20/19 ABOUT RECEIVING BLOOD SUGAR CHECKS AND WILL MAKE A DECISION TOMORROW. THIS RN INFORMED DR. CATALAN OF THE SITUATION. WILL CONTINUE TO MONITOR.
[2019-05-19] MEDS: inSUlin ASPART (NovoLOG) 1 UNIT/0.01 ML (CHARGE PER UNIT) SC SCH (21:14)
[2019-05-20] VITALS (7 sets, daily range): BP systolic 151–170; BP diastolic 59–93
[2019-05-20] MEDS: RT-ALBUTEROL/IPRATROPIUM 3 ML (DUONEB) VIAL INH SCH ×6 (01:18→21:42)
[2019-05-20] MEDS: inSUlin ASPART (NovoLOG) 1 UNIT/0.01 ML (CHARGE PER UNIT) SC SCH ×4 (05:21→20:17)
--- NOTE | 2019-05-20 08:49 | Consultation - Surgery ---
ISMAEL MARTIN,MED STUDENT 05/20/19 0849: History of Present Illness History of Present Illness Patient Consulted On(anupama/time) 05/20/19 08:39 Date Seen by Provider: May 20, 2019 Time Seen by Provider: 08:25 History of Present Illness This 83 y/o males presented to the ED with a cc of SOB. Patient was recently discharged from [facility] in [place] after a 21day stay for PNA, CHF and anemia. While at [facility] patient had an EGD, colonoscopy and imaging preformed. According to patient and his daughter, he was doing better until 2 days ago. He had started PT at [facility] last week. Today patient says that he is tired and still a little short of breath, these are his only complaints at this time. While talking to the patient he said that "I'm tired and just wants to sleep", "I've had a good life and my quality of life is poor now". Allergies and Home Medications Allergies Coded Allergies: Paco Known Allergies (Verified Allergy, Unknown, 11/22/05) Home Medications Albuterol Sulfate 2.5 Mg/3 Ml Vial.neb, 2.5 MG INH PRN PRN for SHORTNESS OF BREATH, (Reported) Amlodipine Besylate 10 Mg Tablet, 10 MG PO DAILY, (Reported) Atorvastatin Calcium 40 Mg Tablet, 40 MG PO HS, (Reported) Bumetanide 2 Mg Tablet, 2 MG PO DAILY, (Reported) Carvedilol 25 Mg Tablet, 25 MG PO BID, (Reported) Cyanocobalamin (Vitamin B-12) 1,000 Mcg Tablet, 1,000 MCG PO DAILY, (Reported) Ferrous Sulfate 325 Mg Tablet, 650 MG PO DAILY, (Reported) TAKES 2 (325MG ) TABS DAILY Guaifenesin 600 Mg Tab.er.12h, 1,200 MG PO BID PRN for COUGH, (Reported) TAKES 2 (600MG) TABS Hydralazine HCl 50 Mg Tablet, 50 MG PO TID, (Reported) Isosorbide Mononitrate 30 Mg Tab.er.24h, 30 MG PO DAILY, (Reported) Methimazole 5 Mg Tablet, 7.5 MG PO DAILY, (Reported) TAKE 1 & OF A 5MG TAB TO EQUAL 7.5MG DAILY Mirtazapine 15 Mg Tablet, 15 MG PO HS, (Reported) Pantoprazole Sodium 40 Mg Tablet.dr, 40 MG PO BID, (Reported) Potassium Chloride 10 Meq Tab.er.prt, 10 MEQ PO DAILY, (Reported) Terazosin HCl 5 Mg Capsule, 5 MG PO DAILY, (Reported) Timolol Maleate 5 Ml Drops, 1 DROP OU BID, (Reported) Past Obyturv-Vylszd-Mlwuje Hx Patient Social History Alcohol Use: Past History Recreational Drug Use: No Smoking Status: Former Smoker (3 PPD X 60 YEARS, QUIT 2011) Type Used: Cigarettes (3 PPD X 60 YEARS, QUIT 2011) 2nd Hand Smoke Exposure: Yes Recent Foreign Travel: No Contact w/Someone Who Travel: No Recent Infectious Disease Expo: No Recent Hopitalizations: Yes Immunizations Up To Date Tetanus Booster (TDap): Unknown Date of Pneumonia Vaccine: Mar 28, 2019 Date of Influenza Vaccine: Mar 28, 2019 Seasonal Allergies Seasonal Allergies: No Surgeries History of Surgeries: Yes (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; EGD'S/COLONOSCOPIES;BRONCH) Surgeries: Angioplasty (Right carotid ), Tonsillectomy Respiratory History of Respiratory Disorde: Yes (BRONCHOSCOPY, THORACENTESIS X 2 ON RIGHT AND X 1 ON LEFT-[facility] 03/2019;) Respiratory Disorders: Pneumonia, COPD Cardiovascular History of Cardiac Disorders: Yes (CHF; CAD--NO CARDIAC CATH OR INTERVENTION; AAA--NO SURGERY) Cardiac Disorders: Aneurysm, Coronary Artery Disease, High Cholesterol, Hypertension Neurological History of Neurological Disord: Yes Neurological Disorders: Stroke, TIA Reproductive System Hx Reproductive Disorders: No Genitourinary History of Genitourinary Disor: Yes (CHRONIC RENAL FAILURE/INSUFFICIENCY--NO DIALYSIS) Genitourinary Disorders: Benign Prostatic Hyperpl, Prostate Problems, Renal Failure Gastrointestinal History of Gastrointestinal Di: Yes (EGD'S / COLONOSCOPIES--LAST ONE 03/2019 AT [facility]; HEPATIC CYSTS) Gastrointestinal Disorders: Gastroesophageal Reflux, Torres's Esophagus, Ulcer Musculoskeletal History of Musculoskeletal Dis: Yes (SPINAL STENOSIS) Musculoskeletal Disorders: Arthritis, Chronic Back Pain Endocrine History of Endocrine Disorders: Yes Endocrine Disorders: Hyperthyroidism HEENT History of HEENT Disorders: Yes (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; TONSILLECTOMY) HEENT Disorders: Glaucoma Cancer History of Cancer: No Psychosocial History of Psychiatric Problem: Yes Behavioral Health Disorders: Depression Integumentary History of Skin or Integumenta: No Blood Transfusions History of Blood Disorders: Yes (ANEMIA) Adverse Reaction to a Blood Tr: No Family Medical History Significant Family History: Other Conditions/Hx (mother had CHF ) Family Medial History: Myocardial infarction 19 FATHER, , Age:60 years and older Review of Systems-General Constitutional: No chills, No dizziness, No fever; malaise, weakness EENTM: No epistaxis, No nose congestion, No throat pain, No throat swelling Respiratory: No cough; dyspnea on exertion; No phlegm; short of breath Cardiovascular: No chest pain; edema; No palpitations Gastrointestinal: No abdominal pain; constipation; No diarrhea; loss of appetite, melena; No nausea, No vomiting Genitourinary: No dysuria, No frequency Musculoskeletal: No muscle pain; muscle weakness Skin: No hx of skin cancer, No rash Psychiatric/Neurological: Anxiety, Depressed; Denies Headache, Denies Numbness Physical Exam-General Problems Physical Exam Vital Signs Vital Signs - First Documented 05/18/19 05/18/19 05/19/19 18:54 19:00 16:06 Temp 38.1 Pulse 76 Resp 18 B/P (MAP) 171/79 (109) Pulse Ox 97 O2 Delivery Room Air O2 Flow Rate 6.00 FiO2 36 Capillary Refill : Less Than 3 Seconds General Appearance: WD/WN, no apparent distress, cachetic HEENT: PERRL/EOMI; No scleral icterus (R), No scleral icterus (L) Neck: non-tender, supple Respiratory: chest non-tender, lungs clear, no respiratory distress, no accessory muscle use Cardiovascular: regular rate, rhythm, no murmur Peripheral Pulses: 2+ Dorsalis Pedis (R), 2+ Left Dors-Pedis (L), 2+ Radial Pulses (R), 2+ Radial Pulses (L) Gastrointestinal: normal bowel sounds, non tender, soft, no organomegaly, no pulsatile mass Extremities: No no calf tenderness; pedal edema (minimal edema in lower extremities ) Neurologic/Psychiatric: alert, oriented x 3, depressed affect Skin: normal color, warm/dry Data Review Labs Laboratory Tests 05/19/19 15:10: Lab Scanned Report Transfusion Reaction Form Microbiology 05/18/19 Urine Culture - Preliminary, Resulted YEAST 05/18/19 Blood Culture - Preliminary, Resulted No growth 05/18/19 Influenza Types A,B Antigen (SHARONA) - Final, Complete Assessment/Plan Assessment/Plan Assessment/Plan HCAP Acute respirtoary failure with hypoxia Acute exacerbation of CHF Anemia -melena -GERD Majority of patient's problems at this time appear to be related to pulmonary and cardiac pathologies. Agree with Medicine and Cardiology for treatment for HCAP and CHF. Will wait on reports form [facility] before considering preforming another colonoscopy or EGD. Will continue to monitor patient while they are in the hospital Clinical Quality Measures DVT/VTE Risk/Contraindication: Risk Factor Score Per Nursin RFS Level Per Nursing on Admit: 4+=Very High DAYSI CORCORAN DO 05/20/19 1510: History of Present Illness History of Present Illness Time Seen by Provider: 11:44 History of Present Illness Pt seen and examined, states he is doing fine. Feeling better after blood transfusion. When asked he said he does not want another EGD; "I just had one". He refused his blood draw today because he doesn't want anything else done. Allergies and Home Medications Allergies Coded Allergies: Paco Known Allergies (Verified Allergy, Unknown, 11/22/05) Home Medications Albuterol Sulfate 2.5 Mg/3 Ml Vial.neb, 2.5 MG INH PRN PRN for SHORTNESS OF BREATH, (Reported) Amlodipine Besylate 10 Mg Tablet, 10 MG PO DAILY, (Reported) Atorvastatin Calcium 40 Mg Tablet, 40 MG PO HS, (Reported) Bumetanide 2 Mg Tablet, 2 MG PO DAILY, (Reported) Carvedilol 25 Mg Tablet, 25 MG PO BID, (Reported) Cyanocobalamin (Vitamin B-12) 1,000 Mcg Tablet, 1,000 MCG PO DAILY, (Reported) Ferrous Sulfate 325 Mg Tablet, 650 MG PO DAILY, (Reported) TAKES 2 (325MG ) TABS DAILY Guaifenesin 600 Mg Tab.er.12h, 1,200 MG PO BID PRN for COUGH, (Reported) TAKES 2 (600MG) TABS Hydralazine HCl 50 Mg Tablet, 50 MG PO TID, (Reported) Isosorbide Mononitrate 30 Mg Tab.er.24h, 30 MG PO DAILY, (Reported) Methimazole 5 Mg Tablet, 7.5 MG PO DAILY, (Reported) TAKE 1 & OF A 5MG TAB TO EQUAL 7.5MG DAILY Mirtazapine 15 Mg Tablet, 15 MG PO HS, (Reported) Pantoprazole Sodium 40 Mg Tablet.dr, 40 MG PO BID, (Reported) Potassium Chloride 10 Meq Tab.er.prt, 10 MEQ PO DAILY, (Reported) Terazosin HCl 5 Mg Capsule, 5 MG PO DAILY, (Reported) Timolol Maleate 5 Ml Drops, 1 DROP OU BID, (Reported) Patient Home Medication List Home Medication List Reviewed: Yes Past Drleopl-Dqdqqf-Hobrzr Hx Family Medical History Family Medial History: Myocardial infarction 19 FATHER, , Age:60 years and older Physical Exam-General Problems Physical Exam Eyes: Bilateral Eye PERRL, Bilateral Eye EOMI HEENT: No pale conjunctivae (R), No pale conjunctivae (L) Assessment/Plan Assessment/Plan Assessment/Plan Anemia Hx of AVM (stomach) with EGD and cauterization. Hg has stayed up after tranfusion. Since pt does not want any further intervention, I will sign off. I can reconsult if needed. Supervisory-Addendum Brief Verification & Attestation Participated in pt care: history, MDM, physical Personally performed: exam, history, MDM Care discussed with: Medical Student Procedures: n/a Verification and Attestation of Medical Student E/M Service A medical student performed and documented this service in my presence. I reviewed and verified all information documented by the medical student and made modifications to such information, when appropriate. I personally performed the physical exam and medical decision making. Daysi Corcoran, May 20, 2019,15:18 ISMAEL MARTIN,MED STUDENT May 20, 2019 08:49 DAYSI CORCORAN DO May 20, 2019 15:10
[2019-05-20] MEDS ORDERED: PANTOPRAZOLE 40 MG (PROTONIX) TAB PO SCH (09:00)
[2019-05-20] MEDS ORDERED: METHIMAZOLE PO SCH (09:00)
--- NOTE | 2019-05-20 09:20 | Progress Note - Hospitalist ---
Subjective HPI/CC On Admission Date Seen by Provider: May 20, 2019 Time Seen by Provider: 09:30 Ignacio Moulton is an 83-year-old male with past medical history of hypertension, hyperlipidemia, GERD, hyperthyroidism, chronic kidney disease, heart failure, who presented with fever, shortness of breath, and cough. He was recently hospitalized at [facility] in [place] for about a month. At that time he was being treated for pneumonia, heart failure, and GI bleeding. He has been at [facility] since that time. He reports that he had a couple endoscopies while he was in the hospital. He reports that he has had ongoing me kaley since that time. He currently denies any chest pain. He denies any nausea, vomiting, abdominal pain, or diarrhea. Objective Exam Vital Signs Vital Signs Date Time Temp Pulse Resp B/P (MAP) Pulse Ox O2 Delivery O2 Flow Rate FiO2 05/20/19 12:00 62 19 151/59 (89) 94 Nasal Cannula 4.00 05/20/19 07:30 36.7 05/19/19 16:06 36 Capillary Refill : Less Than 3 Seconds General Appearance: No Apparent Distress, WD/WN, Chronically ill Respiratory: No Accessory Muscle Use, No Respiratory Distress, Crackles, Decreased Breath Sounds Cardiovascular: Regular Rate, Rhythm Neurologic/Psychiatric: Alert, Oriented x3, No Motor/Sensory Deficits, Normal Mood/Affect Results/Procedures Lab Laboratory Tests 05/20/19 09:15 Patient resulted labs reviewed. Imaging: Reviewed Imaging Report Assessment/Plan Assessment and Plan Assess & Plan/Chief Complaint Assessment: HCAP placed on Cefepime + Levaquin Acute respiratory failure with hypoxia Acute heart failure exacerbation, unspecified type NSTEMI Type II consulting Cardiology Anemia s/p 2 units of blood Melena recent scopes at [facility] x 2 GERD Acute kidney injury superimposed on chronic kidney disease Essential hypertension Hyperlipidemia Hyperthyroidism DVT prophylaxis: Holding in setting of GI bleeding Plan: Move to 4th floor Patient very tired of being sick he reports Abx maintained Diagnosis/Problems Diagnosis/Problems (1) HCAP (healthcare-associated pneumonia) Status: Acute (2) Acute kidney injury superimposed on chronic kidney disease Status: Acute (3) Acute respiratory failure with hypoxia Status: Acute (4) NSTEMI (non-ST elevation myocardial infarction) Status: Acute (5) Hyperthyroidism Status: Chronic (6) Hyperlipidemia Status: Chronic (7) Anemia Status: Acute Qualifiers: Iron deficiency anemia type: chronic blood loss (8) Essential hypertension Status: Chronic (9) Melena Status: Chronic (10) Severe anemia Status: Acute (11) Elevated troponin Status: Acute (12) CHF (congestive heart failure) Status: Acute Clinical Quality Measures DVT/VTE Risk/Contraindication: Risk Factor Score Per Nursin RFS Level Per Nursing on Admit: 4+=Very High DIVYA RAMSAY DO May 20, 2019 09:20
[2019-05-20] MEDS: amLODIPine 10 MG (NORVASC) TAB PO SCH (09:23)
[2019-05-20] MEDS: METHIMAZOLE TABLET 5 MG TABLET PO SCH (09:24)
[2019-05-20] MEDS: TERAZOSIN 5 MG (HYTRIN) CAPSULE PO SCH (09:25)
[2019-05-20] MEDS: CARVEDILOL 12.5 MG (COREG) TABLET PO SCH ×2 (09:26→20:59)
[2019-05-20] MEDS: hydrALAZINE (APRESOLINE) 25 MG TAB PO SCH ×3 (09:27→20:59)
[2019-05-20] MEDS: ISOSORBIDE MONONITRATE 30 MG (IMDUR) TAB PO SCH (09:27)
[2019-05-20] MEDS: PANTOPRAZOLE 40 MG (PROTONIX) VIAL IV SCH (09:28)
[2019-05-20] MEDS: TIMOLOL MALEATE 0.5% 5 ML (TIMOPTIC) BTL OU SCH ×2 (09:28→21:00)
[2019-05-20] MEDS: SENNOSIDES 8.6 MG (SENOKOT) TAB PO SCH ×2 (09:29→20:58)
[2019-05-20] MEDS: DOCUSATE SODIUM 100 MG (COLACE) CAP PO SCH ×2 (09:29→20:59)
[2019-05-20 09:31] LABS: BASOPHILS % (AUTO) 0 % (0-10); EOSINOPHILS % (AUTO) 0 % (0-10); HEMATOCRIT 28 % (40-54); HEMOGLOBIN 8.9 G/DL (13.3-17.7); LYMPHOCYTES # (AUTO) 0.3 X 10^3 (1.0-4.0); LYMPHOCYTES % (AUTO) 4 % (12-44); MEAN CORPUSCULAR HEMOGLOBIN 30 PG (25-34); MEAN CORPUSCULAR HGB CONC 32 G/DL (32-36); MEAN CORPUSCULAR VOLUME 95 FL (80-99); MEAN PLATELET VOLUME 9.1 FL (7.4-10.4); MONOCYTES # (AUTO) 0.2 X 10^3 (0.0-1.0); MONOCYTES % (AUTO) 3 % (0-12); NEUTROPHILS # (AUTO) 6.5 X 10^3 (1.8-7.8); NEUTROPHILS % (AUTO) 93 % (42-75); PLATELET COUNT 128 10^3/uL (130-400); RED CELL DISTRIBUTION WIDTH 18.2 % (10.0-14.5)
[2019-05-20 09:53] LABS: ALBUMIN 3.1 GM/DL (3.2-4.5); BILIRUBIN,TOTAL 0.6 MG/DL (0.1-1.0); CALCIUM 7.9 MG/DL (8.5-10.1); CREATININE SERUM 2.13 MG/DL (0.60-1.30); POTASSIUM 3.5 MMOL/L (3.6-5.0)
[2019-05-20] MEDS ORDERED: guaiFENesin (MUCINEX) 600 MG TAB PO PRN (11:00)
--- NOTE | 2019-05-20 12:59 | Occupational Therapy Eval ---
OT Evaluation-General/PLF Medical Diagnosis Admission Date May 18, 2019 at 20:00 Medical Diagnosis: ARF Onset Date: May 18, 2019 Therapy Diagnosis Therapy Diagnosis: Weakness Precautions Precautions/Isolations: Fall Prevention, Standard Precautions Safety Interventions: None Weight Bear Status Weight Bearing Restriction: Weight Bearing/Tolerated Referral Physician: Dr. Woodard Referral Reason: Activity Tolerance, Self Care, Evaluation/Treatment, Strengthening/ROM Medical History Pertinent Medical History: CAD, GERD, HTN Additional Medical History Recent hospitalizations, hyperlipidemia, heart failure Current History Pt. lives at home with spouse. Became ill around [facility] and transferred to [facility] after hospitalizations. Pt. came back to hospital with fever, SOA, cough. Reviewed History: Yes Social History Home: Single Level Current Living Status: Spouse Entry Into Home: Stairs With Railing Steps Into Home: 2 ADL-Prior Level of Function SCALE: Activities may be completed with or without assistive devices. 4-Tfojhrptjc-nvpzary completes the activity by him/herself with no assistance from a helper. 5-Set-up or Clean-up Assistance-helper sets up or cleans up; patient completes activity. [place] assists only prior to or following the activity. 4-Supervision or Touching Assistance-helper provides verbal cues and/or touching/steadying and/or contact guard assistance as patient completes activ ity. Assistance may be provided throughout the activity or intermittently. 3-Partial/Moderate Assistance-helper does LESS THAN HALF the effort. [place] lifts, holds or supports trunk or limbs, but provides less than half the effort. 2-Substantial/Maximal Assistance-helper does MORE THAN HALF the effort. [place] lifts or holds trunk or limbs and provides more than half the effort. 7-Iprpicfsf-kyudhy does ALL the effort. Patient does none of the effort to complete the activity. Or, the assistance of 2 or more helpers is required for the patient to complete the activity. If activity was not attempted, code reason: 7-Patient Refused. 9-Not Applicable-not attempted and the patient did not perform the activity before the current illness, exacerbation or injury. 10-Not Attempted due to Environmental Limitations-(lack of equipment, weather restraints, etc.). 88-Not Attempted due to Medical Conditions or Safety Concerns. ADL PLOF Comments Pt. states that previous to original hospitalization, pt. was independent with daily tasks. Self Care: Independent Functional Cognition: Independent DME/Equipment: Shower DME/Equipment Comments Pt. has a walker and crutches. OT Current Status Subjective No pain reported. Pt. states, "I'm just weak." Appearance Pt. in bed. Agrees to treatment. Mental Status/Objective Patient Orientation: Person, Place, Time, Situation Attachments: IV, Oxygen, Telemetry Current Upper Extremity Strength 3/5 bilateral UE strength. ADL-Treatment Eating (QC): 5 (Set up to eat lunch.) On/Off Footwear (QC): 3 (Min assist to doff/don slipper socks.) Other Treatments Pt. transferred supine-sit with min assist. Sat on side of bed and practiced deep breathing. Pt. able to reach feet. Stood with walker and min assist. Min assist for balance in stance with walker. Ambulated 8 feet with walker with CGA . Transferred to chair in room. All needs met. Education OT Patient Education: Correct positioning, Modified ADL techniques, Progress toward Goal/Update tx plan, Purpose of tx/functional activities, Reviewed precautions, Rehab process, Transfer techniques Teaching Recipient: Patient Teaching Methods: Demonstration, Discussion Response to Teaching: Verbalize Understanding, Return Demonstration OT Short Term Goals Short Term Goals Time Frame: May 27, 2019 Eatin Oral hygiene: 5 Toileting hygiene: 4 Shower/bathe self: 4 Upper body dressin Lower body dressin Putting on/taking off footwear: 4 OT Care Home Goals Care Home Goals Time Frame: Jun 03, 2019 Eating (QC): 6 Oral Hygiene (QC): 6 Toileting Hygiene (QC): 5 Shower/Bathe Self (QC): 5 Upper Body Dressing (QC): 5 Lower Body Dressing (QC): 5 On/Off Footwear (QC): 5 Additional Goals: 1-Demonstrate ADL Tasks, 2-Verbalize Understanding, 3- ImproveStrength/Dennis 1=Demonstrate adherence to instructed precautions during ADL tasks. 2=Patient will verbalize/demonstrate understanding of assistive devices/modifications for ADL. 3=Patient will improve strength/tolerance for activity to enable patient to perform ADL's. OT Education/Plan Problem List/Assessment Assessment: Decreased Activ Tolerance, Decreased UE Strength, Impaired Funct Balance, Impaired I ADL's, Impaired Self-Care Skills Discharge Recommendations Plan/Recommendations: Continue POC Therapy Discharge Recommendati: Post Acute OT Treatment Plan/Plan of Care Treatment,Training & Education: Yes Patient would benefit from OT for education, treatment and training to promote independence in ADL's, mobility, safety and/or upper extremity function for ADL's. Plan of Care: ADL Retraining, Functional Mobility, UE Funct Exercise/Act Treatment Duration: Jun 03, 2019 Frequency: 5 times per week Estimated Hrs Per Day: .5 hour per day Agreement: Yes Rehab Potential: Fair Time/GCodes Start Time: 11:45 Stop Time: 12:25 Total Time Billed (hr/min): 40 Billed Treatment Time 1, EVM x 15minutes, ADL x 10minutes, FA x 15minutes MERT GIBSON OT May 20, 2019 12:59
--- NOTE | 2019-05-20 13:35 | Physical Therapy Evaluation ---
PT Evaluation-General Medical Diagnosis Admission Date May 18, 2019 at 20:00 Medical Diagnosis: ARF Onset Date: May 18, 2019 Therapy Diagnosis Therapy Diagnosis: Impaired mobility Precautions Precautions/Isolations: Fall Prevention, Standard Precautions Referral Physician: Dr. Woodard Reason for Referral: Evaluation/Treatment Medical History Pertinent Medical History: CAD, GERD, HTN Additional Medical History TIA, chronic kidney disease, CHF, CAD, depression Current History Initially admitted at [facility] in early April, discharged on 05/14/19 to [facility]. Admitted via ED due to fever and dyspnea. Reviewed History: Yes Social History Home: Single Level Current Living Status: Spouse Entry Into Home: Stairs With Railing PT Steps Into Home: 2 Prior Prior Level of Function SCALE: Activities may be completed with or without assistive devices. 8-Wdfwlmjlrb-qxyifys completes the activity by him/herself with no assistance from a helper. 5-Set-up or Clean-up Assistance-helper sets up or cleans up; patient completes activity. [place] assists only prior to or following the activity. 4-Supervision or Touching Assistance-helper provides verbal cues and/or touching/steadying and/or contact guard assistance as patient completes activity. Assistance may be provided throughout the activity or intermittently. 3-Partial/Moderate Assistance-helper does LESS THAN HALF the effort. [place] lifts, holds or supports trunk or limbs, but provides less than half the effort. 2-Substantial/Maximal Assistance-helper does MORE THAN HALF the effort. [place] lifts or holds trunk or limbs and provides more than half the effort. 8-Irnfgxghz-orzmuc does ALL the effort. Patient does none of the effort to co mplete the activity. Or, the assistance of 2 or more helpers is required for the patient to complete the activity. If activity was not attempted, code reason: 7-Patient Refused. 9-Not Applicable-not attempted and the patient did not perform the activity before the current illness, exacerbation or injury. 10-Not Attempted due to Environmental Limitations-(lack of equipment, weather restraints, etc.). 88-Not Attempted due to Medical Conditions or Safety Concerns. Bed Mobility: 6 Transfers (B,C,W/C): 6 Gait: 6 Stairs: 6 Indoor Mobility (Ambulation): Independent Stairs: Independent Prior Devices Use: Walker Prior Device Use: FWW or cane PT Evaluation-Current Subjective No pain reported. Pt/Family Goals wants pt to return home, but he wants to work on getting stronger before returning home. Objective Patient Orientation: Person, Place, Time, Situation Attachments: Oxygen ROM/Strength ROM Upper Extremities WFL ROM Lower Extremities WFL Strength Upper Extremities WFL Strength Lower Extremities WFL Neuromuscular (Tone, Coordination, Reflexes) All intact Sensory Vision: Wears Glasses Hearing: Functional Sensation Right Upper Extremit: Intact Sensation Left Upper Extremity: Intact Sensation Right Lower Extremit: Intact Sensation Left Lower Extremity: Intact Transfers Roll Left to Right (QC): 88 Sit to Lying (QC): 88 Lying to Sitting/Side of Bed(Q: 88 Sit to Stand (QC): 5 Chair/Urx-af-Jndmo Xfer(QC): 5 Toilet Transfer: 88 Car Transfer (QC): 88 Gait Does the Patient Walk?: Yes Mode of Locomotion: Walk Anticipated Mode of Locomotion: Walk Walk 10 feet (QC): 5 Walk 50 ft with 2 Turns(QC): 5 Walk 150 ft (QC): 5 Walking 10ft/uneven surface-QC: 88 Distance: 150ft Gait Assistive Device: FWW Comments/Gait Description Brought oxygen. 94% prior to ambulation, and 90% once completed ambulating. Wheelchair Training Does the Pt Use a Wheelchair?: No Balance Sitting Static: Normal Sitting Dynamic: Normal Standing Static: Normal Standing Dynamic: Good Assessment/Needs Pt was able to safely transfer and ambulate with SBA. Pt reported mild fatigue after ambulating 150ft. He would benefit from further treatment to improve activity tolerance and reduce need for assistance. Rehab Potential: Good PT Short Term Goals Short Term Goals Time Frame: Jun 03, 2019 Roll Left & Right: 6 Sit to lyin Lying to sitting on side of be: 6 Sit to stand: 6 Chair/txo-eo-ahaxb transfer: 6 Toilet transfer: 6 Car transfer: 6 Walk 10 feet: 6 Walk 50 feet with two turns: 6 Walk 150 feet: 6 Walking 10ft on uneven surface: 6 1 step (curb): 6 PT Plan Problem List Problem List: Activity Tolerance, Functional Strength, Gait, Transfer, Bed Mobility Treatment/Plan Treatment Plan: Continue Plan of Care Treatment Plan: Bed Mobility, Concurrent Therapy, Functional Activity Dennis, Functional Strength, Gait, Therapeutic Exercise, Transfers Treatment Duration: Jun 03, 2019 Frequency: 6 times per week Estimated Hrs Per Day: .25 hour per day Patient and/or Family Agrees t: Yes Time/GCodes Time In: 1254 Time Out: 1326 Total Billed Treatment Time: 32 Total Billed Treatment 1, caroline 32 ALEXA LEMON PT May 20, 2019 13:35
--- NOTE | 2019-05-20 14:45 | NUR ---
Pt arrived to floor via WC, accompanied by CASE BRIEFER and PHYSICIAN ASSISTANT SURGERY. Pt oriented to room and call light, pt sitting in chair with family at bedside. Pt denies needs at this time, will continue to monitor
--- NOTE | 2019-05-20 14:47 | NUR ---
1445 PT TRANSFERRED TO ROOM 413 VIA W/C ACCOMPANIED BY THIS RN AND PCT, PT TRANSFERRED WITH PORTABLE 02 AT 2 LITERS PER NC, ALL PERSONAL BELONGINGS SENT WITH PT. REPORT GIVEN TO EMMANUEL PLATT PRIOR TO TRANSFER.
--- NOTE | 2019-05-20 15:05 | Cardiology Progress Note ---
Cardiology SOAP Progress Note Subjective: No significant cardiac complaints. Objective: I&O/Vital Signs 05/20/19 05/20/19 05/20/19 05/20/19 03:32 04:00 07:18 07:28 Pulse 59 60 Resp 24 B/P (MAP) 165/60 (95) Pulse Ox 94 90 O2 Delivery Nasal Cannula Nasal Cannula Nasal Cannula O2 Flow Rate 4.00 4.00 4.00 05/20/19 05/20/19 05/20/19 05/20/19 07:30 08:35 09:31 10:27 Temp 36.7 Pulse 64 Resp 20 B/P (MAP) 163/60 (94) Pulse Ox 99 97 O2 Delivery Nasal Cannula Nasal Cannula Nasal Cannula O2 Flow Rate 4.00 4.00 4.00 05/20/19 05/20/19 05/20/19 11:30 12:00 13:53 Temp 36.6 Pulse 62 Resp 19 B/P (MAP) 151/59 (89) Pulse Ox 94 95 O2 Delivery Nasal Cannula Nasal Cannula O2 Flow Rate 4.00 4.00 05/20/19 00:00 Intake Total 800 ml Output Total 900 ml Balance -100 ml Constitutional: appears stated age, AAO x 3; No apparent distress; well- developed, well-nourished Respiratory: chest is bilaterally symmetric, lungs clear to auscultation Cardiovascular: regular rate-rhythm, S1 and S2 Gastrointestional: soft, audible bowel sounds; No spleenomegaly Extremities: normal range of motion, non-tender, normal inspection; No clu bbing, No cyanosis; no lower extremity edema bilateral; No significant edema Neurologic/Psychiatric: no motor/sensory deficits, alert, normal mood/affect, oriented x 3, power is 5/5 both on sides Skin: normal color; No rash, No ulcerations Results/Procedures: Labs Laboratory Tests 05/19/19 15:10: Lab Scanned Report Transfusion Reaction Form 05/20/19 09:15: White Blood Count 7.0, Red Blood Count 2.98L, Hemoglobin 8.9L, Hematocrit 28L, Mean Corpuscular Volume 95, Mean Corpuscular Hemoglobin 30, Mean Corpuscular Hemoglobin Concent 32, Red Cell Distribution Width 18.2H, Platelet Count 128L, Mean Platelet Volume 9.1, Neutrophils (%) (Auto) 93H, Lymphocytes (%) (Auto) 4L, Monocytes (%) (Auto) 3, Eosinophils (%) (Auto) 0, Basophils (%) (Auto) 0, Neutrophils # (Auto) 6.5, Lymphocytes # (Auto) 0.3L, Monocytes # (Auto) 0.2, Eosinophils # (Auto) 0.0, Basophils # (Auto) 0.0, Sodium Level 145, Potassium Level 3.5L, Chloride Level 106, Carbon Dioxide Level 28, Anion Gap 11, Blood Urea Nitrogen 53H, Creatinine 2.13H, Estimat Glomerular Filtration Rate 30, BUN/Creatinine Ratio 25, Glucose Level 159H, Calcium Level 7.9L, Corrected Calcium 8.6, Total Bilirubin 0.6, Aspartate Amino Transf (AST/SGOT) 11, Alanine Aminotransferase (ALT/SGPT) 23, Alkaline Phosphatase 89, Total Protein 6.0L, Albumin 3.1L Microbiology 05/18/19 Urine Culture - Preliminary, Resulted YEAST 05/18/19 Blood Culture - Preliminary, Resulted No growth 05/18/19 Influenza Types A,B Antigen (SHARONA) - Final, Complete A/P: Assessment/Dx: Severe anemia, Possible type II myocardial infarction, Acute diastolic Congestive heart failure, Acute on chronic kidney injury, Hypercalcemia, Pulmonary hypertension, Moderate to severe mitral regurgitation Plan: Severe anemia, source of anemia unknown. We still do not know if there is active bleeding. He has received numerous transfusion but still continues to be anemic. Might require hematology consultation. Possible type II myocardial infarction, positive cardiac enzymes. Likely due to demand ischemia due to severe anemia. Coronary angiography and possible intervention are contraindicated detail source of anemia is known and bleeding can be ruled out. Acute diastolic Congestive heart failure, elevated BNP. Echocardiogram will be recommended. Echocardiogram shows normal LVEF with diastolic dysfunction. Moderate to severe mitral regurgitation. PA pressure significantly elevated. Acute on chronic kidney injury, Hypercalcemia, Moderate to severe mitral regurgitation, IV Lasix is recommended. Pulmonary hypertension, unclear etiology. Thank you for your consultation. Please call me if you have any questions. Estela Brumfield MD, FACP, FACC, FSCAI, FHRS, CCDS Interventional Cardiology Cardiac Electrophysiology Vascular Medicine and Endovascular Interventions Reyes BRUMFIELD MD May 20, 2019 15:05
[2019-05-20] MEDS ORDERED: LEVOFLOXACIN 750 MG/D5W 150 ML PRE-MIX IV SCH (20:30)
[2019-05-20] MEDS ORDERED: WATER (STERILE) FOR INJECTION 10 ML ONE (20:38)
[2019-05-20] MEDS ORDERED: CEFEPIME 1 GM (MAXIPIME) VIAL ONE (20:38)
[2019-05-20] MEDS: PANTOPRAZOLE 40 MG (PROTONIX) TAB PO SCH (20:58)
[2019-05-20] MEDS: MIRTAZAPINE 15 MG (REMERON) TAB PO SCH (20:59)
[2019-05-20] MEDS: CEFEPIME 1,000 MG/SWFI 10 ML IV PUSH IV SCH ×2 (21:00)
[2019-05-21] VITALS (8 sets, daily range): BP systolic 123–163; BP diastolic 53–72
[2019-05-21] MEDS: RT-ALBUTEROL/IPRATROPIUM 3 ML (DUONEB) VIAL INH SCH ×6 (01:49→22:10)
[2019-05-21 04:05] LABS: BASOPHILS % (AUTO) 0 % (0-10); EOSINOPHILS % (AUTO) 0 % (0-10); HEMATOCRIT 27 % (40-54); HEMOGLOBIN 8.4 G/DL (13.3-17.7); LYMPHOCYTES # (AUTO) 0.6 X 10^3 (1.0-4.0); LYMPHOCYTES % (AUTO) 6 % (12-44); MEAN CORPUSCULAR HGB CONC 31 G/DL (32-36); MEAN CORPUSCULAR VOLUME 96 FL (80-99); MEAN PLATELET VOLUME 9.2 FL (7.4-10.4); MONOCYTES # (AUTO) 0.5 X 10^3 (0.0-1.0); MONOCYTES % (AUTO) 6 % (0-12); NEUTROPHILS # (AUTO) 8.5 X 10^3 (1.8-7.8); NEUTROPHILS % (AUTO) 88 % (42-75); PLATELET COUNT 150 10^3/uL (130-400); RED CELL DISTRIBUTION WIDTH 18.6 % (10.0-14.5); WHITE BLOOD COUNT 9.6 10^3/uL (4.3-11.0)
[2019-05-21 04:21] LABS: MEAN CORPUSCULAR HEMOGLOBIN 29 PG (25-34)
[2019-05-21 04:26] LABS: BILIRUBIN,TOTAL 0.6 MG/DL (0.1-1.0); CALCIUM 7.9 MG/DL (8.5-10.1); CREATININE SERUM 2.15 MG/DL (0.60-1.30); POTASSIUM 3.5 MMOL/L (3.6-5.0); TOTAL PROTEIN 5.8 GM/DL (6.4-8.2)
[2019-05-21] MEDS: inSUlin ASPART (NovoLOG) 1 UNIT/0.01 ML (CHARGE PER UNIT) SC SCH ×4 (04:32→21:00)
[2019-05-21] MEDS: TERAZOSIN 5 MG (HYTRIN) CAPSULE PO SCH (08:40)
[2019-05-21] MEDS: PANTOPRAZOLE 40 MG (PROTONIX) TAB PO SCH ×2 (08:40→22:10)
[2019-05-21] MEDS: METHIMAZOLE TABLET 5 MG TABLET PO SCH (08:40)
[2019-05-21] MEDS: CYANOCOBALAMIN 1,000 MCG (VITAMIN B-12) TABLET PO SCH (08:40)
[2019-05-21] MEDS: DOCUSATE SODIUM 100 MG (COLACE) CAP PO SCH ×2 (08:41→22:09)
[2019-05-21] MEDS: hydrALAZINE (APRESOLINE) 25 MG TAB PO SCH ×3 (08:41→22:10)
[2019-05-21] MEDS: ISOSORBIDE MONONITRATE 30 MG (IMDUR) TAB PO SCH (08:41)
[2019-05-21] MEDS: CARVEDILOL 12.5 MG (COREG) TABLET PO SCH ×2 (08:41→22:09)
[2019-05-21] MEDS: amLODIPine 10 MG (NORVASC) TAB PO SCH (08:41)
[2019-05-21] MEDS: TIMOLOL MALEATE 0.5% 5 ML (TIMOPTIC) BTL OU SCH ×2 (08:42→22:12)
[2019-05-21] MEDS: SENNOSIDES 8.6 MG (SENOKOT) TAB PO SCH ×2 (08:46→22:09)
--- NOTE | 2019-05-21 13:16 | Progress Note - Hospitalist ---
Subjective HPI/CC On Admission Date Seen by Provider: May 21, 2019 Time Seen by Provider: 09:30 Ignacio Moulton is an 83-year-old male with past medical history of hypertension, hyperlipidemia, GERD, hyperthyroidism, chronic kidney disease, heart failure, who presented with fever, shortness of breath, and cough. He was recently hospitalized at [facility] in [place] for about a month. At that time he was being treated for pneumonia, heart failure, and GI bleeding. He has been at [facility] since that time. He reports that he had a couple endoscopies while he was in the hospital. He reports that he has had ongoing me kaley since that time. He currently denies any chest pain. He denies any nausea, vomiting, abdominal pain, or diarrhea. Subjective/Events-last exam Feels much better since moved from ICU 4 Hgb stable at 8.4 Creat 2.1 No pain is reported Family at bedside No dyspnea Chronic illness noted Conferred with RN Reviewed meds Was to have EGD at [facility] tomorrow so that may be a procedure we could do today since his hgb stable but decreased a bit today Review of Systems General: Fatigue Pulmonary: Dyspnea Objective Exam Vital Signs Vital Signs Date Time Temp Pulse Resp B/P (MAP) Pulse Ox O2 Delivery O2 Flow Rate FiO2 05/21/19 14:52 93 High Flow N/C 3.50 05/21/19 12:05 36.6 53 20 157/67 (97) 05/21/19 09:13 5 Capillary Refill : Less Than 3 SecondsLess Than 3 Seconds General Appearance: No Apparent Distress, WD/WN Respiratory: No Accessory Muscle Use, No Respiratory Distress, Decreased Breath Sounds Neurologic/Psychiatric: Alert, Oriented x3, No Motor/Sensory Deficits, Normal Mood/Affect Results/Procedures Lab Laboratory Tests 05/21/19 03:25 Patient resulted labs reviewed. Imaging: Reviewed Imaging Report Assessment/Plan Assessment and Plan Assess & Plan/Chief Complaint Assessment: HCAP placed on Cefepime Acute respiratory failure with hypoxia Acute heart failure exacerbation, unspecified type NSTEMI Type II consulting Cardiology Anemia s/p 2 units of blood and noting trend 8.4 today Melena recent scopes at [facility] x 2 GERD Acute kidney injury superimposed on chronic kidney disease creat 2.1 today Essential hypertension Hyperlipidemia Hyperthyroidism DVT prophylaxis: Holding in setting of GI bleeding Plan: Moved to 4th floor Patient very tired of being sick he reports Abx maintained Monitor labs EGD at [facility] instead of [facility]? Diagnosis/Problems Diagnosis/Problems (1) HCAP (healthcare-associated pneumonia) Status: Acute (2) Acute kidney injury superimposed on chronic kidney disease Status: Acute (3) Acute respiratory failure with hypoxia Status: Acute (4) NSTEMI (non-ST elevation myocardial infarction) Status: Acute (5) Hyperthyroidism Status: Chronic (6) Hyperlipidemia Status: Chronic (7) Anemia Status: Acute Qualifiers: Iron deficiency anemia type: chronic blood loss (8) Essential hypertension Status: Chronic (9) Melena Status: Chronic (10) Severe anemia Status: Acute (11) Elevated troponin Status: Acute (12) CHF (congestive heart failure) Status: Acute Clinical Quality Measures DVT/VTE Risk/Contraindication: Risk Factor Score Per Nursin RFS Level Per Nursing on Admit: 4+=Very High DIVYA RAMSAY DO May 21, 2019 13:16
--- NOTE | 2019-05-21 13:46 | Cardiology Progress Note ---
Cardiology SOAP Progress Note Subjective: No cardiac complaints. Objective: I&O/Vital Signs 05/21/19 05/21/19 05/21/19 05/21/19 01:49 04:00 06:47 08:15 Temp 36.8 36.6 Pulse 58 59 Resp 18 20 B/P (MAP) 160/64 (96) 163/72 (102) Pulse Ox 92 93 88 91 O2 Delivery Nasal Cannula Nasal Cannula Nasal Cannula Nasal Cannula O2 Flow Rate 2.00 2.00 3.00 5.00 05/21/19 05/21/19 05/21/19 09:13 09:59 12:05 Temp 36.6 Pulse 53 Resp 20 B/P (MAP) 157/67 (97) Pulse Ox 87 92 O2 Delivery Nasal Cannula Nasal Cannula High Flow N/C O2 Flow Rate 91.00 5.00 3.50 FiO2 5 05/21/19 00:00 Intake Total 1152 ml Output Total 750 ml Balance 402 ml Constitutional: appears stated age, AAO x 3; No apparent distress; well- developed, well-nourished Respiratory: chest is bilaterally symmetric, lungs clear to auscultation Cardiovascular: regular rate-rhythm, S1 and S2 Gastrointestional: soft, audible bowel sounds; No spleenomegaly Extremities: normal range of motion, non-tender, normal inspection; No clubbing, No cyanosis; no lower extremity edema bilateral; No significant edema Neurologic/Psychiatric: no motor/sensory deficits, alert, normal mood/affect, oriented x 3, power is 5/5 both on sides Skin: normal color; No rash, No ulcerations Results/Procedures: Labs Laboratory Tests 05/20/19 15:36: Glucometer 104 05/20/19 20:14: Glucometer 127H 05/21/19 03:25: White Blood Count 9.6, Red Blood Count 2.85L, Hemoglobin 8.4L, Hematocrit 27L, Mean Corpuscular Volume 96, Mean Corpuscular Hemoglobin 29, Mean Corpuscular Hemoglobin Concent 31L, Red Cell Distribution Width 18.6H, Platelet Count 150, Mean Platelet Volume 9.2, Neutrophils (%) (Auto) 88H, Lymphocytes (%) (Auto) 6L, Monocytes (%) (Auto) 6, Eosinophils (%) (Auto) 0, Basophils (%) (Auto) 0, Neutrophils # (Auto) 8.5H, Lymphocytes # (Auto) 0.6L, Monocytes # (Auto) 0.5, Eosinophils # (Auto) 0.0, Basophils # (Auto) 0.0, Sodium Level 142, Potassium Level 3.5L, Chloride Level 105, Carbon Dioxide Level 24, Anion Gap 13, Blood Urea Nitrogen 57H, Creatinine 2.15H, Estimat Glomerular Filtration Rate 30, BUN/Creatinine Ratio 27, Glucose Level 91, Calcium Level 7.9L, Corrected Calcium 8.7, Total Bilirubin 0.6, Aspartate Amino Transf (AST/SGOT) 10, Alanine Aminotransferase (ALT/SGPT) 20, Alkaline Phosphatase 79, Total Protein 5.8L, Albumin 3.0L 05/21/19 10:51: Glucometer 131H Microbiology 05/18/19 Urine Culture - Preliminary, Resulted YEAST Staphylococcus epidermidis 05/18/19 Blood Culture - Preliminary, Resulted No growth 05/18/19 Influenza Types A,B Antigen (SHARONA) - Final, Complete A/P: Assessment/Dx: Severe anemia, Possible type II myocardial infarction, Acute respiratory failure, pneumonia, sepsis. Acute diastolic Congestive heart failure, Acute on chronic kidney injury, Hypercalcemia, Pulmonary hypertension, Moderate to severe mitral regurgitation Plan: Severe anemia, source of anemia unknown. We still do not know if there is active bleeding. He has received numerous transfusion but still continues to be anemic. Might require hematology consultation. Hemoglobin today 8. Possible type II myocardial infarction, positive cardiac enzymes. Likely due to demand ischemia due to severe anemia. Coronary angiography and possible intervention are contraindicated detail source of anemia is known and bleeding can be ruled out. We might start with a nuclear stress test for risk stratification. Acute respiratory failure, pneumonia, sepsis. On broad spectrum IV antibiotics. Acute diastolic Congestive heart failure, elevated BNP. Echocardiogram will be recommended. Echocardiogram shows normal LVEF with diastolic dysfunction. Moderate to severe mitral regurgitation. PA pressure significantly elevated. Acute on chronic kidney injury, creatinine 2.15 on 05/21/2019. Hypercalcemia, Moderate to severe mitral regurgitation, IV Lasix is recommended. Pulmonary hypertension, unclear etiology. Thank you for your consultation. Please call me if you have any questions. Estela Brumfield MD, FACP, FACC, FSCAI, FHRS, CCDS Interventional Cardiology Cardiac Electrophysiology Vascular Medicine and Endovascular Interventions Reyes BRUMFIELD MD May 21, 2019 13:46
[2019-05-21] MEDS ORDERED: REGADENOSON 0.4 MG/5 ML SYR (LEXISCAN) IV ONE (14:00)
[2019-05-21] MEDS ORDERED: CEFEPIME 1 GM (MAXIPIME) VIAL ONE (21:43)
[2019-05-21] MEDS ORDERED: WATER (STERILE) FOR INJECTION 10 ML ONE (21:43)
[2019-05-21] MEDS: MIRTAZAPINE 15 MG (REMERON) TAB PO SCH (22:10)
[2019-05-21] MEDS: CEFEPIME 1,000 MG/SWFI 10 ML IV PUSH IV SCH ×2 (22:12)
[2019-05-22] MEDS: RT-ALBUTEROL/IPRATROPIUM 3 ML (DUONEB) VIAL INH SCH ×6 (01:46→21:12)
[2019-05-22 03:19] VITALS: BP 168/67
[2019-05-22] MEDS: inSUlin ASPART (NovoLOG) 1 UNIT/0.01 ML (CHARGE PER UNIT) SC SCH ×4 (05:48→20:47)
[2019-05-22 05:53] LABS: BASOPHILS % (AUTO) 0 % (0-10); EOSINOPHILS # (AUTO) 0.1 10^3/uL (0.0-0.3); EOSINOPHILS % (AUTO) 2 % (0-10); HEMATOCRIT 26 % (40-54); LYMPHOCYTES # (AUTO) 0.4 X 10^3 (1.0-4.0); LYMPHOCYTES % (AUTO) 6 % (12-44); MEAN CORPUSCULAR HEMOGLOBIN 30 PG (25-34); MEAN CORPUSCULAR HGB CONC 31 G/DL (32-36); MEAN CORPUSCULAR VOLUME 97 FL (80-99); MEAN PLATELET VOLUME 9.5 FL (7.4-10.4); MONOCYTES # (AUTO) 0.5 X 10^3 (0.0-1.0); MONOCYTES % (AUTO) 6 % (0-12); NEUTROPHILS # (AUTO) 6.3 X 10^3 (1.8-7.8); NEUTROPHILS % (AUTO) 86 % (42-75); PLATELET COUNT 124 10^3/uL (130-400); RED CELL DISTRIBUTION WIDTH 18.3 % (10.0-14.5); WHITE BLOOD COUNT 7.3 10^3/uL (4.3-11.0)
[2019-05-22 06:18] LABS: ALBUMIN 2.8 GM/DL (3.2-4.5); BILIRUBIN,TOTAL 0.6 MG/DL (0.1-1.0); CALCIUM 7.8 MG/DL (8.5-10.1); CREATININE SERUM 1.99 MG/DL (0.60-1.30); POTASSIUM 3.8 MMOL/L (3.6-5.0); TOTAL PROTEIN 5.3 GM/DL (6.4-8.2)
--- NOTE | 2019-05-22 07:37 | NUR ---
[facility] HERE TO GET PT FOR LEXISCAN. PT STATES "I TOLD THEM ALL NIGHT I JUST HAD THIS TEST DONE AT [facility] LAST MONTH AND DO NOT WANT TO HAVE IT DONE AGAIN." DR. CHAVEZ NOTIFIED. INSTRUCTED TO TELL PT HE WANTED TEST DONE TROPONIN WAS ELEVATED. EXPLAINED TO PT. PT REFUSED. [facility] NOTIFIED. TEST CANCELLED PER PT REQUEST.
[2019-05-22 08:26] VITALS: BP 146/59
[2019-05-22] MEDS: SENNOSIDES 8.6 MG (SENOKOT) TAB PO SCH ×2 (09:29→20:58)
[2019-05-22] MEDS: ISOSORBIDE MONONITRATE 30 MG (IMDUR) TAB PO SCH (09:29)
[2019-05-22] MEDS: amLODIPine 10 MG (NORVASC) TAB PO SCH (09:29)
[2019-05-22] MEDS: CARVEDILOL 12.5 MG (COREG) TABLET PO SCH ×2 (09:29→20:57)
[2019-05-22] MEDS: TERAZOSIN 5 MG (HYTRIN) CAPSULE PO SCH (09:29)
[2019-05-22] MEDS: PANTOPRAZOLE 40 MG (PROTONIX) TAB PO SCH ×2 (09:29→20:56)
[2019-05-22] MEDS: CYANOCOBALAMIN 1,000 MCG (VITAMIN B-12) TABLET PO SCH (09:29)
[2019-05-22] MEDS: DOCUSATE SODIUM 100 MG (COLACE) CAP PO SCH ×2 (09:29→20:56)
[2019-05-22] MEDS: METHIMAZOLE TABLET 5 MG TABLET PO SCH (09:30)
[2019-05-22] MEDS: hydrALAZINE (APRESOLINE) 25 MG TAB PO SCH ×3 (09:30→20:56)
[2019-05-22] MEDS: TIMOLOL MALEATE 0.5% 5 ML (TIMOPTIC) BTL OU SCH ×2 (09:33→21:37)
[2019-05-22 10:10] VITALS: BP 146/59
--- NOTE | 2019-05-22 11:12 | Physical Therapy Daily Note ---
PT Daily Note-Current Subjective Pt agreeable to PT. Reports he did not sleep well last night. and would like to lie back down after he walks. Transfers SCALE: Activities may be completed with or without assistive devices. 0-Eknaoetnof-zmbrecz completes the activity by him/herself with no assistance from a helper. 5-Set-up or Clean-up Assistance-helper sets up or cleans up; patient completes activity. [place] assists only prior to or following the activity. 4-Supervision or Touching Assistance-helper provides verbal cues and/or touching/steadying and/or contact guard assistance as patient completes activity. Assistance may be provided throughout the activity or intermittently. 3-Partial/Moderate Assistance-helper does LESS THAN HALF the effort. [place] lifts, holds or supports trunk or limbs, but provides less than half the effort. 2-Substantial/Maximal Assistance-helper does MORE THAN HALF the effort. [place] lifts or holds trunk or limbs and provides more than half the effort. 2-Pvjsdqqjm-alwlmt does ALL the effort. Patient does none of the effort to compl ete the activity. Or, the assistance of 2 or more helpers is required for the patient to complete the activity. If activity was not attempted, code reason: 7-Patient Refused. 9-Not Applicable-not attempted and the patient did not perform the activity before the current illness, exacerbation or injury. 10-Not Attempted due to Environmental Limitations-(lack of equipment, weather restraints, etc.). 88-Not Attempted due to Medical Conditions or Safety Concerns. Sit to Lying (QC): 4 Lying to Sitting/Side of Bed(Q: 4 Sit to Stand (QC): 4 SB-CGA for safety; intermittent cues for safety and sequencing. Gait Training Does the Patient Walk?: Yes Walk 150 ft (QC): 4 (CGA for safety. ) Gait Assistive Device: FWW Slow gait pattern with widened MADALYN; tends to keep walker too far ahead of him. Treatments Gait training. Pt in bed post treatment with needs met. Assessment Current Status: Good Progress Progressing. Follows cues well. Functional strength improving. PT Short Term Goals Short Term Goals Time Frame: Jun 03, 2019 Roll Left & Right: 6 Sit to lyin Lying to sitting on side of be: 6 Sit to stand: 6 Chair/knz-lk-zwjqh transfer: 6 Toilet transfer: 6 Car transfer: 6 Walk 10 feet: 6 Walk 50 feet with two turns: 6 Walk 150 feet: 6 Walking 10ft on uneven surface: 6 1 step (curb): 6 PT Plan Problem List Problem List: Activity Tolerance, Functional Strength, Safety Treatment/Plan Treatment Plan: Continue Plan of Care Treatment Plan: Bed Mobility, Concurrent Therapy, Functional Activity Dennis, Functional Strength, Gait, Therapeutic Exercise, Transfers Treatment Duration: Jun 03, 2019 Frequency: 6 times per week Estimated Hrs Per Day: .25 hour per day Patient and/or Family Agrees t: Yes Safety Risks/Education Patient Education: Transfer Techniques, Safety Issues Teaching Recipient: Patient Teaching Methods: Demonstration, Discussion Response to Teaching: Reinforcement Needed Time/GCodes Time In: 1005 Time Out: 1020 Total Billed Treatment Time: 15 Total Billed Treatment visit GT 15 SUMAN BURNS PT May 22, 2019 11:11
[2019-05-22 11:54] VITALS: BP 151/70
--- NOTE | 2019-05-22 12:45 | Occupational Ther Daily Note ---
OT Current Status-Daily Note Subjective Pt seen in room, up in bed, agreeable to OT. No pain mentioned. Appearance Alert, cooperative ADL-Treatment Therapy Code Descriptions/Definitions Functional [place] Measure: 0=Not Assessed/NA 4=Minimal Assistance 1=Total Assistance 5=Supervision or Setup 2=Maximal Assistance 6=Modified [place] 3=Moderate Assistance 7=Complete IndependenceSCALE: Activities may be completed with or without assistive devices. 9-Jgswkolgpx-zazggti completes the activity by him/herself with no assistance from a helper. 5-Set-up or Clean-up Assistance-helper sets up or cleans up; patient completes activity. [place] assists only prior to or following the activity. 4-Supervision or Touching Assistance-helper provides verbal cues and/or touching/steadying and/or contact guard assistance as patient completes activity. Assistance may be provided throughout the activity or intermittently. 3-Partial/Moderate Assistance-helper does LESS THAN HALF the effort. [place] lifts, holds or supports trunk or limbs, but provides less than half the effort. 2-Substantial/Maximal Assistance-helper does MORE THAN HALF the effort. [place] lifts or holds trunk or limbs and provides more than half the effort. 5-Crybomkfn-lvycic does ALL the effort. Patient does none of the effort to complete the activity. Or, the assistance of 2 or more helpers is required for the patient to complete the activity. If activity was not attempted, code reason: 7-Patient Refused. 9-Not Applicable-not attempted and the patient did not perform the activity before the current illness, exacerbation or injury. 10-Not Attempted due to Environmental Limitations-(lack of equipment, weather restraints, etc.). 88-Not Attempted due to Medical Conditions or Safety Concerns. Other Treatment Pt able to position himself in bed to do bilat UE exercises. Pt education three different bilat UE exercises with yellow theraband (gentle resistance). Pt educ purpose of exercises to strengthen arms to help with sit to stand and back to sit, standing for ADLs, and functional mobility. Pt completed 10 reps each exercise and able to do them for a second set with minimal cues to correct positioning. Pt verbalized appreciation for exercises. Theraband left in room for him to do them on his own. Supine to sit without help and sit to stand CGA, FWW. Walked CGA, FWW to recliner and cues for hand placement for transfers. Pt up in recliner to eat independently, all needs met, O2 in place. 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 2=Patient will verbalize/demonstrate understanding of assistive devices/modifications for ADL. 3=Patient will improve strength/tolerance for activity to enable patient to perform ADL's. OT Education/Plan Discharge Recommendations Plan/Recommendations: Continue POC Treatment Plan/Plan of Care Patient would benefit from OT for education, treatment and training to promote independence in ADL's, mobility, safety and/or upper extremity function for AD L's. Plan of Care: ADL Retraining, Functional Mobility, UE Funct Exercise/Act Treatment Duration: Jun 03, 2019 Frequency: 5 times per week Estimated Hrs Per Day: .5 hour per day Agreement: Yes Rehab Potential: Good Time/GCodes Start Time: 12:20 Stop Time: 12:35 Total Time Billed (hr/min): 15 Billed Treatment Time visit, 15 minutes exercise KEIRY MILLER OT May 22, 2019 12:45
--- NOTE | 2019-05-22 14:06 | NUR ---
RD ASSESSMENT PMHx: HTN; HLD; GERD; CKD; HF; hypothyroidism PT INTERACTION: Pt was semi-awake and pleasant during nutrition assessment. Pt states current appetite is "fair to good" and he is eating better now than he had been recently. Note avg PO intake of 58% x2d, per chart review. Pt states following a regular diet at home, and has no difficulty chewing/swallowing food despite having no teeth. Pt states no recent issues with n/v/c/d at this time. Note last BM was 05/20, and pt currently on bowel regimen of colace BID and senna BID, per chart review. Pt states no recent wt changes. Note unable to determine recent wt hx, per chart review. ABNORMAL NUTRITION-RELATED LAB VALUES LOW: Ca 7.8; Pro 5.3; alb 2.8 HIGH: Cl 108; BUN 51; cr 1.99 Est. kcal needs: 4254-7300 kcal | 25-30 kcal/kg Est. Pro needs: 93-116 g Pro | 1.2-1.4 g Pro/kg PES STATEMENT: Inadequate oral intake (NI-2.1) related to loss of appetite as evidenced by pt interview | avg PO intake 58% x2d INTERVENTION: Continue with current diet order of Heart Healthy diet. Add Ensure Enlive (vary) to meals BID. Provides 350 kcal and 13 g Pro per serving. Will continue to follow and reassess as pt needs and status change. MONITOR/EVALUATE: PO Intake; Plan of Care; Hydration Status; Weight Status; Lab Values Reed Mendez, MS, RD, LD
--- NOTE | 2019-05-22 15:41 | Progress Note - Hospitalist ---
Subjective HPI/CC On Admission Date Seen by Provider: May 22, 2019 Time Seen by Provider: 09:10 Ignacio Moulton is an 83-year-old male with past medical history of hypertension, hyperlipidemia, GERD, hyperthyroidism, chronic kidney disease, heart failure, who presented with fever, shortness of breath, and cough. He was recently hospitalized at [facility] in [place] for about a month. At that time he was being treated for pneumonia, heart failure, and GI bleeding. He has been at [facility] since that time. He reports that he had a couple endoscopies while he was in the hospital. He reports that he has had ongoing me kaley since that time. He currently denies any chest pain. He denies any nausea, vomiting, abdominal pain, or diarrhea. Subjective/Events-last exam He reports feeling well this morning. He thinks he is still having black tarry stools. He was unsure why he was going to have a stress test today and that is why he refused. He is willing to undergo a stress test as well as endoscopy if needed. Objective Exam Vital Signs Vital Signs Date Time Temp Pulse Resp B/P (MAP) Pulse Ox O2 Delivery O2 Flow Rate FiO2 05/22/19 15:17 90 Nasal Cannula 3.50 05/22/19 11:54 37.4 61 18 151/70 (97) 05/22/19 10:10 32 Capillary Refill : Less Than 3 SecondsLess Than 3 Seconds General Appearance: No Apparent Distress, WD/WN HEENT: PERRL/EOMI, Pharynx Normal Neck: Normal Inspection, Supple Respiratory: Lungs Clear, Normal Breath Sounds, No Respiratory Distress Cardiovascular: Regular Rate, Rhythm, No Edema, No Murmur Gastrointestinal: Normal Bowel Sounds, Non Tender, Soft Extremity: Normal Inspection, Non Tender, Pedal Edema Neurologic/Psychiatric: Alert, Oriented x3, No Motor/Sensory Deficits, Normal Mood/Affect Skin: Warm/Dry, Pallor Results/Procedures Lab Laboratory Tests 05/22/19 04:34 Patient resulted labs reviewed. Imaging: Reviewed Imaging Report Assessment/Plan Assessment and Plan Assess & Plan/Chief Complaint Acute respiratory failure with hypoxia Acute heart failure with preserved ejection fraction NSTEMI Cardiology following Planning for stress test tomorrow Nothing by mouth at midnight Completed course of antibiotics for pneumonia Anemia Melena GERD Continue PPI General surgery consulted, appreciate assistance Continue to monitor hemoglobin and transfuse as needed to keep hemoglobin greater than 8 Acute kidney injury superimposed on chronic kidney disease Creatinine improving, 1.99 this morning Essential hypertension Hyperlipidemia Hyperthyroidism Continue home meds HCAP, resolved DVT prophylaxis: Holding in setting of GI bleeding Diagnosis/Problems Diagnosis/Problems (1) HCAP (healthcare-associated pneumonia) Status: Resolved Resolution Date/Time: 05/22/19 @ 15:40 (2) Acute respiratory failure with hypoxia Status: Acute (3) NSTEMI (non-ST elevation myocardial infarction) Status: Acute (4) Anemia Status: Acute Qualifiers: Iron deficiency anemia type: chronic blood loss (5) Melena Status: Chronic (6) Acute kidney injury superimposed on chronic kidney disease Status: Acute (7) Essential hypertension Status: Chronic (8) Hyperlipidemia Status: Chronic (9) Hyperthyroidism Status: Chronic Clinical Quality Measures DVT/VTE Risk/Contraindication: Risk Factor Score Per Nursin RFS Level Per Nursing on Admit: 4+=Very High JOLIE CATALAN MD May 22, 2019 15:41
[2019-05-22 16:24] VITALS: BP 166/58
[2019-05-22] MEDS ORDERED: REGADENOSON 0.4 MG/5 ML SYR (LEXISCAN) IV ONE (17:00)
--- NOTE | 2019-05-22 17:00 | Cardiology Progress Note ---
Cardiology SOAP Progress Note Subjective: No cardiac complaints. Objective: I&O/Vital Signs 05/22/19 05/22/19 05/22/19 05/22/19 06:55 08:26 09:00 10:10 Temp 36.7 36.7 Pulse 73 67 Resp 18 B/P (MAP) 146/59 (88) Pulse Ox 85 91 91 O2 Delivery Nasal Cannula High Flow N/C Nasal Cannula O2 Flow Rate 3.50 4.00 3.50 FiO2 32 05/22/19 05/22/19 05/22/19 05/22/19 10:53 11:54 15:17 16:24 Temp 37.4 37.1 Pulse 61 59 Resp 18 20 B/P (MAP) 151/70 (97) 166/58 (94) Pulse Ox 91 91 90 90 O2 Delivery Nasal Cannula High Flow N/C Nasal Cannula High Flow N/C O2 Flow Rate 3.50 4.00 3.50 4.00 05/22/19 00:00 Intake Total 1020 ml Balance 1020 ml Constitutional: appears stated age, AAO x 3; No apparent distress; well- developed, well-nourished Respiratory: chest is bilaterally symmetric, lungs clear to auscultation Cardiovascular: regular rate-rhythm, S1 and S2 Gastrointestional: soft, audible bowel sounds; No spleenomegaly Extremities: normal range of motion, non-tender, normal inspection; No clubbing, No cyanosis; no lower extremity edema bilateral; No significant edema Neurologic/Psychiatric: no motor/sensory deficits, alert, normal mood/affect, oriented x 3, power is 5/5 both on sides Skin: normal color; No rash, No ulcerations Results/Procedures: Labs Laboratory Tests 05/21/19 20:46: Glucometer 133H 05/22/19 04:34: White Blood Count 7.3, Red Blood Count 2.66L, Hemoglobin 8.0L, Hematocrit 26L, Mean Corpuscular Volume 97, Mean Corpuscular Hemoglobin 30, Mean Corpuscular Hemoglobin Concent 31L, Red Cell Distribution Width 18.3H, Platelet Count 124L, Mean Platelet Volume 9.5, Neutrophils (%) (Auto) 86H, Lymphocytes (%) (Auto) 6L, Monocytes (%) (Auto) 6, Eosinophils (%) (Auto) 2, Basophils (%) (Auto) 0, Neutrophils # (Auto) 6.3, Lymphocytes # (Auto) 0.4L, Monocytes # (Auto) 0.5, Eosinophils # (Auto) 0.1, Basophils # (Auto) 0.0, Sodium Level 143, Potassium Level 3.8, Chloride Level 108H, Carbon Dioxide Level 24, Anion Gap 11, Blood Urea Nitrogen 51H, Creatinine 1.99H, Estimat Glomerular Filtration Rate 32, BUN/Creatinine Ratio 26, Glucose Level 81, Calcium Level 7.8L, Corrected Calcium 8.8, Total Bilirubin 0.6, Aspartate Amino Transf (AST/SGOT) 9, Alanine Aminotransferase (ALT/SGPT) 16, Alkaline Phosphatase 64, Total Protein 5.3L, Albumin 2.8L, Procalcitonin 0.10H 05/22/19 05:03: Glucometer 91 05/22/19 11:38: Glucometer 125H 05/22/19 16:16: Glucometer 134H Microbiology 05/18/19 Urine Culture - Final, Complete YEAST Staphylococcus epidermidis 05/18/19 Blood Culture - Preliminary, Resulted No growth 05/18/19 Influenza Types A,B Antigen ([facility]) - Final, Complete A/P: Assessment/Dx: Severe anemia, Possible type II myocardial infarction, Acute respiratory failure, pneumonia, sepsis. Acute diastolic Congestive heart failure, Acute on chronic kidney injury, Hypercalcemia, Pulmonary hypertension, Moderate to severe mitral regurgitation Plan: Severe anemia, source of anemia unknown. We still do not know if there is active bleeding. He has received numerous transfusion but still continues to be anemic. Might require hematology consultation. Hemoglobin today 8. Possible type II myocardial infarction, positive cardiac enzymes. Likely due to demand ischemia due to severe anemia. Coronary angiography and possible intervention are contraindicated detail source of anemia is known and bleeding can be ruled out. We might start with a nuclear stress test for risk stratification. We will perform on 05/23/2019. Acute respiratory failure, pneumonia, sepsis. On broad spectrum IV antibiotics. Acute diastolic Congestive heart failure, elevated BNP. Echocardiogram will be recommended. Echocardiogram shows normal LVEF with diastolic dysfunction. Moderate to severe mitral regurgitation. PA pressure significantly elevated. Acute on chronic kidney injury, creatinine 2.15 on 05/21/2019. Hypercalcemia, Moderate to severe mitral regurgitation, IV Lasix is recommended. Pulmonary hypertension, unclear etiology. Thank you for your consultation. Please call me if you have any questions. Estela Brumfield MD, FACP, FACC, FSCAI, FHRS, CCDS Interventional Cardiology Cardiac Electrophysiology Vascular Medicine and Endovascular Interventions Reyes BRUMFIELD MD May 22, 2019 17:00
[2019-05-22] MEDS ORDERED: CEFEPIME 1 GM (MAXIPIME) VIAL ONE (20:47)
[2019-05-22] MEDS ORDERED: WATER (STERILE) FOR INJECTION 10 ML ONE (20:47)
[2019-05-22] MEDS: CEFEPIME 1,000 MG/SWFI 10 ML IV PUSH IV SCH ×2 (20:56)
[2019-05-22] MEDS: MIRTAZAPINE 15 MG (REMERON) TAB PO SCH (20:56)
[2019-05-22 21:00] VITALS: BP 166/68
[2019-05-23] VITALS: BP 167/61
[2019-05-23] MEDS: RT-ALBUTEROL/IPRATROPIUM 3 ML (DUONEB) VIAL INH SCH ×6 (02:09→22:34)
[2019-05-23 04:00] VITALS: BP 167/66
[2019-05-23] MEDS: inSUlin ASPART (NovoLOG) 1 UNIT/0.01 ML (CHARGE PER UNIT) SC SCH ×4 (06:08→21:16)
[2019-05-23 06:56] LABS: BASOPHILS % (AUTO) 0 % (0-10); EOSINOPHILS # (AUTO) 0.4 10^3/uL (0.0-0.3); EOSINOPHILS % (AUTO) 5 % (0-10); HEMATOCRIT 25 % (40-54); HEMOGLOBIN 7.8 G/DL (13.3-17.7); LYMPHOCYTES # (AUTO) 0.4 X 10^3 (1.0-4.0); LYMPHOCYTES % (AUTO) 6 % (12-44); MEAN CORPUSCULAR HEMOGLOBIN 30 PG (25-34); MEAN CORPUSCULAR HGB CONC 31 G/DL (32-36); MEAN CORPUSCULAR VOLUME 97 FL (80-99); MEAN PLATELET VOLUME 8.9 FL (7.4-10.4); MONOCYTES # (AUTO) 0.4 X 10^3 (0.0-1.0); MONOCYTES % (AUTO) 5 % (0-12); NEUTROPHILS # (AUTO) 5.9 X 10^3 (1.8-7.8); NEUTROPHILS % (AUTO) 84 % (42-75); PLATELET COUNT 111 10^3/uL (130-400); RED CELL DISTRIBUTION WIDTH 18.1 % (10.0-14.5)
[2019-05-23 07:18] LABS: CALCIUM 7.8 MG/DL (8.5-10.1); CREATININE SERUM 1.62 MG/DL (0.60-1.30); POTASSIUM 3.9 MMOL/L (3.6-5.0)
[2019-05-23 08:00] VITALS: BP 157/60
--- NOTE | 2019-05-23 08:09 | NUR ---
TAKEN DOWN FOR STRESS TEST
[2019-05-23] MEDS: hydrALAZINE (APRESOLINE) 25 MG TAB PO SCH ×3 (09:00→20:56)
[2019-05-23] MEDS ORDERED: REGADENOSON 0.4 MG/5 ML SYR (LEXISCAN) IV ONE (09:00)
--- NOTE | 2019-05-23 09:41 | Occ Therapy Progress Note ---
Therapy Progress Note OT attempted to see pt this AM, he was not in his room. Nursing reports pt was having a stress test done at this time. OT will attempt again later. 1, visit 0930 JOHN LEAL OT May 23, 2019 09:41
[2019-05-23] MEDS: TIMOLOL MALEATE 0.5% 5 ML (TIMOPTIC) BTL OU SCH ×2 (10:54→21:01)
[2019-05-23] MEDS: amLODIPine 10 MG (NORVASC) TAB PO SCH (11:34)
[2019-05-23] MEDS: TERAZOSIN 5 MG (HYTRIN) CAPSULE PO SCH (11:35)
[2019-05-23] MEDS: PANTOPRAZOLE 40 MG (PROTONIX) TAB PO SCH ×2 (11:35→20:57)
[2019-05-23] MEDS: METHIMAZOLE TABLET 5 MG TABLET PO SCH (11:35)
[2019-05-23] MEDS: ISOSORBIDE MONONITRATE 30 MG (IMDUR) TAB PO SCH (11:35)
[2019-05-23] MEDS: CARVEDILOL 12.5 MG (COREG) TABLET PO SCH ×2 (11:35→20:57)
[2019-05-23] MEDS: CYANOCOBALAMIN 1,000 MCG (VITAMIN B-12) TABLET PO SCH (11:35)
[2019-05-23] MEDS: SENNOSIDES 8.6 MG (SENOKOT) TAB PO SCH ×3 (11:36→20:58)
[2019-05-23] MEDS: DOCUSATE SODIUM 100 MG (COLACE) CAP PO SCH ×2 (11:36→20:58)
--- NOTE | 2019-05-23 11:48 | Physical Therapy Daily Note ---
PT Daily Note-Current Subjective Pt reports he is tired due to having a stress test this am. He agrees to ambulation. Transfers SCALE: Activities may be completed with or without assistive devices. 0-Fghgnrhadp-karcsrc completes the activity by him/herself with no assistance from a helper. 5-Set-up or Clean-up Assistance-helper sets up or cleans up; patient completes activity. [place] assists only prior to or following the activity. 4-Supervision or Touching Assistance-helper provides verbal cues and/or touching/steadying and/or contact guard assistance as patient completes activity. Assistance may be provided throughout the activity or intermittently. 3-Partial/Moderate Assistance-helper does LESS THAN HALF the effort. [place] lifts, holds or supports trunk or limbs, but provides less than half the effort. 2-Substantial/Maximal Assistance-helper does MORE THAN HALF the effort. [place] lifts or holds trunk or limbs and provides more than half the effort. 3-Cplfrfyun-boxcka does ALL the effort. Patient does none of the effort to complete the activity. Or, the assistance of 2 or more helpers is required for the patient to complete the activity. If activity was not attempted, code reason: 7-Patient Refused. 9-Not Applicable-not attempted and the patient did not perform the activity before the current illness, exacerbation or injury. 10-Not Attempted due to Environmental Limitations-(lack of equipment, weather restraints, etc.). 88-Not Attempted due to Medical Conditions or Safety Concerns. Transfers supine to sit at EOB SBA, Transfer Sit to stand with Min A. Had knee instability upon initial stand. Gait Training Gait Assistive Device: FWW Ambulate 125ft with FWW and close Min Assist due to balance. Had assist for O2 at 3L. Assessment Current Status: Fair Progress Gait distance was reduced this session likely due to patient haveing a busy morning with medical testing. He will benefit from continued PT. PT Short Term Goals Short Term Goals Time Frame: Jun 03, 2019 Roll Left & Right: 6 Sit to lyin Lying to sitting on side of be: 6 Sit to stand: 6 Chair/lkb-ev-wekjx transfer: 6 Toilet transfer: 6 Car transfer: 6 Walk 10 feet: 6 Walk 50 feet with two turns: 6 Walk 150 feet: 6 Walking 10ft on uneven surface: 6 1 step (curb): 6 PT Plan Problem List Problem List: Activity Tolerance, Gait Treatment/Plan Treatment Plan: Continue Plan of Care Treatment Plan: Bed Mobility, Concurrent Therapy, Functional Activity Dennis, Functional Strength, Gait, Therapeutic Exercise, Transfers Treatment Duration: Jun 03, 2019 Frequency: 6 times per week Estimated Hrs Per Day: .25 hour per day Patient and/or Family Agrees t: Yes Time/GCodes Time In: 1115 Time Out: 1130 Total Billed Treatment Time: 15 Total Billed Treatment visit, gait 15 min LUKE VALDEZ PT May 23, 2019 11:48
[2019-05-23 12:00] VITALS: BP 166/70
--- NOTE | 2019-05-23 13:37 | Occupational Ther Daily Note ---
OT Current Status-Daily Note Subjective Pt seated upright in recliner with present. He agreed to OT tx with focus on exercises, declining ADLs at this time. Pt reports he is feeling better since his stress test went well this morning, he had been worried about it the last couple of days causing him to not sleep well. He states he is now ready to leave and would like to go home before long. He feels like he is at his PLOF and feels like he no longer requires OT services. ADL-Treatment Therapy Code Descriptions/Definitions Functional Grace Measure: 0=Not Assessed/NA 4=Minimal Assistance 1=Total Assistance 5=Supervision or Setup 2=Maximal Assistance 6=Modified Grace 3=Moderate Assistance 7=Complete IndependenceSCALE: Activities may be completed with or without assistive devices. 2-Prjdrbtwzb-xtsjxeo completes the activity by him/herself with no assistance from a helper. 5-Set-up or Clean-up Assistance-helper sets up or cleans up; patient completes activity. [place] assists only prior to or following the activity. 4-Supervision or Touching Assistance-helper provides verbal cues and/or touching/steadying and/or contact guard assistance as patient completes activity. Assistance may be provided throughout the activity or intermittently. 3-Partial/Moderate Assistance-helper does LESS THAN HALF the effort. [place] lifts, holds or supports trunk or limbs, but provides less than half the effort. 2-Substantial/Maximal Assistance-helper does MORE THAN HALF the effort. [place] lifts or holds trunk or limbs and provides more than half the effort. 0-Kfvksofbj-peborl does ALL the effort. Patient does none of the effort to complete the activity. Or, the assistance of 2 or more helpers is required for the patient to complete the activity. If activity was not attempted, code reason: 7-Patient Refused. 9-Not Applicable-not attempted and the patient did not perform the activity before the current illness, exacerbation or injury. 10-Not Attempted due to Environmental Limitations-(lack of equipment, weather restraints, etc.). 88-Not Attempted due to Medical Conditions or Safety Concerns. Other Treatment Pt declined ADLs at this time stating he would like a shower over the weekend but does not want one right now, he also declines brushing his teeth and washing his face. Pt agreed to BUE exercises in order to increase strength and functional endurance. Pt performed exercises using yellow theraband, x15 reps, 2 sets each of the following: shoulder horizontal abduction, front punch, elbow flexion. OT educated pt on home safety and energy conservation with tasks, pt and verbalized understanding. Pt states he feels like he is at his PLOF and states he feels like he no longer requires OT services. Pt reports being able to complete toileting using FWW without assistance, and he completed dressing without assistance. Post OT session, pt seated in recliner, call light in reach and all needs met. Education OT Patient Education: Correct positioning, Energy conservation, Exercise program, Modified ADL techniques, Progress toward Goal/Update tx plan, Purpose of tx/functional activities, Safety issues Teaching Recipient: Patient, Significant Other Teaching Methods: Demonstration, Discussion Response to Teaching: Verbalize Understanding, Return Demonstration OT Short Term Goals Short Term Goals Time Frame: May 27, 2019 Eatin Oral hygiene: 5 Toileting hygiene: 4 Shower/bathe self: 4 Upper body dressin Lower body dressin Putting on/taking off footwear: 4 OT [place] Fancier Goals [place] Fancier Goals Time Frame: Jun 03, 2019 Eating (QC): 6 (met per pt report) Oral Hygiene (QC): 6 (not met) Toileting Hygiene (QC): 5 (met per pt report) Shower/Bathe Self (QC): 5 (not met) Upper Body Dressing (QC): 5 (met per pt report) Lower Body Dressing (QC): 5 (met per pt report) On/Off Footwear (QC): 5 (met per pt report) Additional Goals: 1-Demonstrate ADL Tasks, 2-Verbalize Understanding, 3- ImproveStrength/Dennis 1=Demonstrate adherence to instructed precautions during ADL tasks. 2=Patient will verbalize/demonstrate understanding of assistive devices/modifications for ADL. 3=Patient will improve strength/tolerance for activity to enable patient to perform ADL's. OT Education/Plan Problem List/Assessment Assessment: No Skilled OT Needs ID'd Pt reports he is at his PLOF and feels like he does not require further OT services. He reports being able to complete dressing and toileting without assistance. Pt's therapy sessions have focused on increasing BUE strength and endurance in order to increase independence with ADLs and functional activities. Per pt report, he has met goals of being independent wtih eating, and set up assistance with toileting, upper body dressing, lower body dressing, and footwea r. Pt did not meet goals of independence with oral hygiene and showering due to OT txs focusing on exercises instead of ADLs. Discontinue OT services at this time due to pt currently functioning at [facility] and his request to discontinue OT. Discharge Recommendations Plan/Recommendations: Discontinue OT Treatment Plan/Plan of Care Patient would benefit from OT for education, treatment and training to promote independence in ADL's, mobility, safety and/or upper extremity function for ADL's. Plan of Care: ADL Retraining, Functional Mobility, UE Funct Exercise/Act Treatment Duration: Jun 03, 2019 Frequency: 5 times per week Estimated Hrs Per Day: .5 hour per day Agreement: Yes Rehab Potential: Good Time/GCodes Start Time: 13:13 Stop Time: 13:27 Total Time Billed (hr/min): 14 Billed Treatment Time 1, EX JOHN LEAL OT May 23, 2019 13:37
--- NOTE | 2019-05-23 14:31 | Physical Therapy Daily Note ---
PT Daily Note-Current Subjective Pt feeling more rested this pm. Mental Status Patient Orientation: Normal For Age Transfers SCALE: Activities may be completed with or without assistive devices. 8-Tnqowhmxtf-pgkslrs completes the activity by him/herself with no assistance from a helper. 5-Set-up or Clean-up Assistance-helper sets up or cleans up; patient completes activity. [place] assists only prior to or following the activity. 4-Supervision or Touching Assistance-helper provides verbal cues and/or touching/steadying and/or contact guard assistance as patient completes activity. Assistance may be provided throughout the activity or intermittently. 3-Partial/Moderate Assistance-helper does LESS THAN HALF the effort. [place] lifts, holds or supports trunk or limbs, but provides less than half the effort. 2-Substantial/Maximal Assistance-helper does MORE THAN HALF the effort. [place] lifts or holds trunk or limbs and provides more than half the effort. 6-Fvughixzq-ckybdl does ALL the effort. Patient does none of the effort to complete the activity. Or, the assistance of 2 or more helpers is required for the patient to complete the activity. If activity was not attempted, code reason: 7-Patient Refused. 9-Not Applicable-not attempted and the patient did not perform the activity before the current illness, exacerbation or injury. 10-Not Attempted due to Environmental Limitations-(lack of equipment, weather restraints, etc.). 88-Not Attempted due to Medical Conditions or Safety Concerns. Sit to stand SBA from bedside chair to walker. Gait Training Gait Assistive Device: FWW Amabulate 150ft FWW CGA with O2 at 4L/min. Pt had no LOB. As he fatigued he needed cues to stay closer to the walker. PT Short Term Goals Short Term Goals Time Frame: Jun 03, 2019 Roll Left & Right: 6 Sit to lyin Lying to sitting on side of be: 6 Sit to stand: 6 Chair/two-kz-rjheo transfer: 6 Toilet transfer: 6 Car transfer: 6 Walk 10 feet: 6 Walk 50 feet with two turns: 6 Walk 150 feet: 6 Walking 10ft on uneven surface: 6 1 step (curb): 6 PT Plan Treatment/Plan Treatment Plan: Continue Plan of Care Treatment Plan: Bed Mobility, Concurrent Therapy, Functional Activity Dennis, Functional Strength, Gait, Therapeutic Exercise, Transfers Treatment Duration: Jun 03, 2019 Frequency: 6 times per week Estimated Hrs Per Day: .25 hour per day Patient and/or Family Agrees t: Yes Time/GCodes Time In: 1345 Time Out: 1405 Total Billed Treatment Time: 20 Total Billed Treatment visit, gait 15min, FA 5 min LUKE VALDEZ PT May 23, 2019 14:31
[2019-05-23 16:18] VITALS: BP 133/57
--- NOTE | 2019-05-23 16:24 | NUR ---
CM DISCHARGE PLANNING: Prior to this hospitalization patient is from [facility]. Visited with [facility] staff about continued care plans. According to documentation patient will not be able to return to them until Sunday at the earliest. This was discussed with Anna. No interventions noted at this time. Will f/u with him on Sunday.
--- NOTE | 2019-05-23 17:11 | Progress Note - Hospitalist ---
Subjective HPI/CC On Admission Date Seen by Provider: May 23, 2019 Time Seen by Provider: 16:45 Ignacio Moulton is an 83-year-old male with past medical history of hypertension, hyperlipidemia, GERD, hyperthyroidism, chronic kidney disease, heart failure, who presented with fever, shortness of breath, and cough. He was recently hospitalized at [facility] in [place] for about a month. At that time he was being treated for pneumonia, heart failure, and GI bleeding. He has been at [facility] since that time. He reports that he had a couple endoscopies while he was in the hospital. He reports that he has had ongoing me kaley since that time. He currently denies any chest pain. He denies any nausea, vomiting, abdominal pain, or diarrhea. Subjective/Events-last exam He denies any complaints this time. He denies any fevers or chills. He denies any chest pain or shortness of breath. He denies any abdominal pain, nausea, or vomiting. He denies any ongoing melena. Objective Exam Vital Signs Vital Signs Date Time Temp Pulse Resp B/P (MAP) Pulse Ox O2 Delivery O2 Flow Rate FiO2 05/23/19 16:18 36.4 71 20 133/57 (82) 90 High Flow N/C 4.00 05/22/19 10:10 32 Capillary Refill : Less Than 3 SecondsLess Than 3 Seconds General Appearance: No Apparent Distress, Chronically ill, Thin Neck: Normal Inspection, Supple Respiratory: Lungs Clear, Normal Breath Sounds, No Respiratory Distress Cardiovascular: Regular Rate, Rhythm, No Edema, No Murmur Gastrointestinal: Normal Bowel Sounds, Non Tender, Soft Extremity: Normal Inspection, Non Tender, No Pedal Edema Neurologic/Psychiatric: Alert, Oriented x3, No Motor/Sensory Deficits, Normal Mood/Affect Skin: Normal Color, Warm/Dry Results/Procedures Lab Laboratory Tests 05/23/19 06:40 Patient resulted labs reviewed. Imaging: Reviewed Imaging Report Assessment/Plan Assessment and Plan Assess & Plan/Chief Complaint Acute respiratory failure with hypoxia Acute heart failure with preserved ejection fraction NSTEMI Cardiology following Stress test today Completed course of antibiotics for pneumonia Anemia Melena GERD Continue PPI General surgery consulted, no plans for endoscopy at this time Continue to monitor hemoglobin and transfuse as needed to keep hemoglobin greater than 8 Acute kidney injury superimposed on chronic kidney disease Creatinine improving Essential hypertension Hyperlipidemia Hyperthyroidism Continue home meds HCAP, resolved DVT prophylaxis: Holding in setting of GI bleeding Diagnosis/Problems Diagnosis/Problems (1) HCAP (healthcare-associated pneumonia) Status: Resolved Resolution Date/Time: 05/22/19 @ 15:40 (2) Acute respiratory failure with hypoxia Status: Acute (3) NSTEMI (non-ST elevation myocardial infarction) Status: Acute (4) Anemia Status: Acute Qualifiers: Iron deficiency anemia type: chronic blood loss (5) Melena Status: Chronic (6) Acute kidney injury superimposed on chronic kidney disease Status: Acute (7) Essential hypertension Status: Chronic (8) Hyperlipidemia Status: Chronic (9) Hyperthyroidism Status: Chronic Clinical Quality Measures DVT/VTE Risk/Contraindication: Risk Factor Score Per Nursin RFS Level Per Nursing on Admit: 4+=Very High JOLIE CATALAN MD May 23, 2019 17:10
--- NOTE | 2019-05-23 17:41 | Cardiology Progress Note ---
Cardiology SOAP Progress Note Subjective: No cardiac complaint. Objective: I&O/Vital Signs 05/23/19 05/23/19 05/23/19 05/23/19 07:16 08:00 09:00 10:43 Temp 37.0 Pulse 72 Resp 18 B/P (MAP) 157/60 (92) Pulse Ox 90 91 90 O2 Delivery High Flow N/C Nasal Cannula Nasal Cannula O2 Flow Rate 4.00 3.50 3.50 4.00 05/23/19 05/23/19 05/23/19 12:00 15:34 16:18 Temp 37.0 36.4 Pulse 71 71 Resp 18 20 B/P (MAP) 166/70 (102) 133/57 (82) Pulse Ox 91 90 90 O2 Delivery High Flow N/C Nasal Cannula High Flow N/C O2 Flow Rate 3.50 4.00 4.00 05/23/19 00:00 Intake Total 820 ml Balance 820 ml Constitutional: appears stated age, AAO x 3; No apparent distress; well- developed, well-nourished Respiratory: chest is bilaterally symmetric, lungs clear to auscultation Cardiovascular: regular rate-rhythm, S1 and S2 Gastrointestional: soft, audible bowel sounds; No spleenomegaly Extremities: normal range of motion, non-tender, normal inspection; No clubbing, No cyanosis; no lower extremity edema bilateral; No significant edema Neurologic/Psychiatric: no motor/sensory deficits, alert, normal mood/affect, oriented x 3, power is 5/5 both on sides Skin: normal color; No rash, No ulcerations Results/Procedures: Labs Laboratory Tests 05/22/19 20:46: Glucometer 157H 05/23/19 06:04: Glucometer 100 05/23/19 06:40: White Blood Count 7.0, Red Blood Count 2.60L, Hemoglobin 7.8L, Hematocrit 25L, Mean Corpuscular Volume 97, Mean Corpuscular Hemoglobin 30, Mean Corpuscular Hemoglobin Concent 31L, Red Cell Distribution Width 18.1H, Platelet Count 111L, Mean Platelet Volume 8.9, Neutrophils (%) (Auto) 84H, Lymphocytes (%) (Auto) 6L, Monocytes (%) (Auto) 5, Eosinophils (%) (Auto) 5, Basophils (%) (Auto) 0, Neutrophils # (Auto) 5.9, Lymphocytes # (Auto) 0.4L, Monocytes # (Auto) 0.4, Eosinophils # (Auto) 0.4H, Basophils # (Auto) 0.0, Sodium Level 144, Potassium Level 3.9, Chloride Level 109H, Carbon Dioxide Level 26, Anion Gap 9, Blood Urea Nitrogen 42H, Creatinine 1.62H, Estimat Glomerular Filtration Rate 41, BUN/Creatinine Ratio 26, Glucose Level 85, Calcium Level 7.8L 05/23/19 11:09: Glucometer 102 05/23/19 15:45: Glucometer 157H Microbiology 05/18/19 Urine Culture - Final, Complete YEAST Staphylococcus epidermidis 05/18/19 Blood Culture - Preliminary, Resulted No growth 05/18/19 Influenza Types A,B Antigen ([place]) - Final, Complete A/P: Assessment/Dx: Severe anemia, Possible type II myocardial infarction, Acute respiratory failure, pneumonia, sepsis. Acute diastolic Congestive heart failure, Acute on chronic kidney injury, Hypercalcemia, Pulmonary hypertension, Moderate to severe mitral regurgitation Plan: Severe anemia, source of anemia unknown. We still do not know if there is active bleeding. He has received numerous transfusion but still continues to be anemic. Might require hematology consultation. Hemoglobin today 8. Possible type II myocardial infarction, positive cardiac enzymes. Likely due to demand ischemia due to severe anemia. Coronary angiography and possible intervention are contraindicated detail source of anemia is known and bleeding can be ruled out. We might start with a nuclear stress test for risk stratification. We will perform on 05/23/2019. Nuclear stress is done on 05/23/2019 was low risk with no significant area of infarct or ischemia. Acute respiratory failure, pneumonia, sepsis. On broad spectrum IV antibiotics. Acute diastolic Congestive heart failure, elevated BNP. Echocardiogram will be recommended. Echocardiogram shows normal LVEF with diastolic dysfunction. Moderate to severe mitral regurgitation. PA pressure significantly elevated. Acute on chronic kidney injury, creatinine 2.15 on 05/21/2019. Hypercalcemia, Moderate to severe mitral regurgitation, IV Lasix is recommended. Pulmonary hypertension, unclear etiology. Thank you for your consultation. Please call me if you have any questions. Estela Brumfield MD, FACP, FACC, FSCAI, FHRS, CCDS Interventional Cardiology Cardiac Electrophysiology Vascular Medicine and Endovascular Interventions Reyes BRUMFIELD MD May 23, 2019 17:41
[2019-05-23 20:30] VITALS: BP 170/56
[2019-05-23] MEDS: MIRTAZAPINE 15 MG (REMERON) TAB PO SCH (20:57)
[2019-05-24] VITALS (7 sets, daily range): BP systolic 146–177; BP diastolic 55–70
[2019-05-24] MEDS: RT-ALBUTEROL/IPRATROPIUM 3 ML (DUONEB) VIAL INH SCH ×7 (02:10→22:59)
--- NOTE | 2019-05-24 04:42 | NUR ---
Notified RT that pt sats during 4 AM vital signs was 85%. Received order to give PRN RT treatment.
[2019-05-24 05:38] LABS: BASOPHILS % (AUTO) 0 % (0-10); EOSINOPHILS # (AUTO) 0.5 10^3/uL (0.0-0.3); EOSINOPHILS % (AUTO) 7 % (0-10); HEMATOCRIT 24 % (40-54); HEMOGLOBIN 7.4 G/DL (13.3-17.7); LYMPHOCYTES # (AUTO) 0.4 X 10^3 (1.0-4.0); LYMPHOCYTES % (AUTO) 5 % (12-44); MEAN CORPUSCULAR HEMOGLOBIN 30 PG (25-34); MEAN CORPUSCULAR HGB CONC 31 G/DL (32-36); MEAN CORPUSCULAR VOLUME 98 FL (80-99); MEAN PLATELET VOLUME 9.4 FL (7.4-10.4); MONOCYTES # (AUTO) 0.3 X 10^3 (0.0-1.0); MONOCYTES % (AUTO) 4 % (0-12); NEUTROPHILS # (AUTO) 5.7 X 10^3 (1.8-7.8); NEUTROPHILS % (AUTO) 84 % (42-75); PLATELET COUNT 112 10^3/uL (130-400); RED CELL DISTRIBUTION WIDTH 18.1 % (10.0-14.5); WHITE BLOOD COUNT 6.8 10^3/uL (4.3-11.0)
[2019-05-24 05:58] LABS: CALCIUM 7.9 MG/DL (8.5-10.1); CREATININE SERUM 1.61 MG/DL (0.60-1.30)
[2019-05-24] MEDS: inSUlin ASPART (NovoLOG) 1 UNIT/0.01 ML (CHARGE PER UNIT) SC SCH ×4 (06:00→21:10)
--- NOTE | 2019-05-24 07:05 | NUR ---
PT FOUND ON ROOM AIR. REPLACED O2 @ 5 LPM. SPO2 INCREASED TO 90% WITH TX. NURSE NOTIFIED.
[2019-05-24] MEDS: amLODIPine 10 MG (NORVASC) TAB PO SCH (09:06)
[2019-05-24] MEDS: CYANOCOBALAMIN 1,000 MCG (VITAMIN B-12) TABLET PO SCH (09:06)
[2019-05-24] MEDS: CARVEDILOL 12.5 MG (COREG) TABLET PO SCH ×2 (09:07→21:09)
[2019-05-24] MEDS: ISOSORBIDE MONONITRATE 30 MG (IMDUR) TAB PO SCH (09:07)
[2019-05-24] MEDS: PANTOPRAZOLE 40 MG (PROTONIX) TAB PO SCH ×2 (09:07→21:10)
[2019-05-24] MEDS: METHIMAZOLE TABLET 5 MG TABLET PO SCH (09:07)
[2019-05-24] MEDS: hydrALAZINE (APRESOLINE) 25 MG TAB PO SCH ×3 (09:07→21:08)
[2019-05-24] MEDS: TERAZOSIN 5 MG (HYTRIN) CAPSULE PO SCH (09:07)
[2019-05-24] MEDS: TIMOLOL MALEATE 0.5% 5 ML (TIMOPTIC) BTL OU SCH ×2 (09:08→21:10)
[2019-05-24] MEDS: DOCUSATE SODIUM 100 MG (COLACE) CAP PO SCH ×2 (09:13→21:09)
[2019-05-24] MEDS: SENNOSIDES 8.6 MG (SENOKOT) TAB PO SCH ×2 (09:13→21:09)
--- NOTE | 2019-05-24 09:58 | Physical Therapy Daily Note ---
PT Daily Note-Current Subjective Pt agreeable to PT session, states he is very tired and feeling weak. Pain Numeric Pain Scale: 0-No Pain Comment: at rest, pain in legs and back upon standing Appearance Pt in bed with family present upon arrival. At end of session, pt sitting up in recliner with call light, phone and bedside table within reach Mental Status Attachments: Oxygen (6L) Transfers SCALE: Activities may be completed with or without assistive devices. 7-Gkdztacgbf-ztrnlju completes the activity by him/herself with no assistance from a helper. 5-Set-up or Clean-up Assistance-helper sets up or cleans up; patient completes activity. [place] assists only prior to or following the activity. 4-Supervision or Touching Assistance-helper provides verbal cues and/or touching/steadying and/or contact guard assistance as patient completes activity. Assistance may be provided throughout the activity or intermittently. 3-Partial/Moderate Assistance-helper does LESS THAN HALF the effort. [place] lifts, holds or supports trunk or limbs, but provides less than half the effort. 2-Substantial/Maximal Assistance-helper does MORE THAN HALF the effort. [place] lifts or holds trunk or limbs and provides more than half the effort. 3-Qupvdxkvo-tioadn does ALL the effort. Patient does none of the effort to complete the activity. Or, the assistance of 2 or more helpers is required for the patient to complete the activity. If activity was not attempted, code reason: 7-Patient Refused. 9-Not Applicable-not attempted and the patient did not perform the activity before the current illness, exacerbation or injury. 10-Not Attempted due to Environmental Limitations-(lack of equipment, weather restraints, etc.). 88-Not Attempted due to Medical Conditions or Safety Concerns. Lying to Sitting/Side of Bed(Q: 4 Sit to Stand (QC): 4 Chair/Yzb-kw-Psjfm Xfer(QC): 3 skilled inst required for technique, safety and hand placement during sit to and from stand transfers. very unsteady, knees flexed, forward flexed posture, shaky Gait Training attempted gait with FWW, pt very unsteady, report of knees and legs "giving out" and feeling very weak, min to mod A required to walk 5 ft from bed to chair, pt unsafe to walk any further this session Treatments bed mobility, education, safety, transfer, gait, activity tolerance, functional mobility Assessment Noted Hgb low and decreasing daily per lab results PT Short Term Goals Short Term Goals Time Frame: Jun 03, 2019 Roll Left & Right: 6 Sit to lyin Lying to sitting on side of be: 6 Sit to stand: 6 Chair/xpd-vl-olujc transfer: 6 Toilet transfer: 6 Car transfer: 6 Walk 10 feet: 6 Walk 50 feet with two turns: 6 Walk 150 feet: 6 Walking 10ft on uneven surface: 6 1 step (curb): 6 PT Plan Treatment/Plan Treatment Plan: Continue Plan of Care Treatment Plan: Bed Mobility, Concurrent Therapy, Functional Activity Dennis, Functional Strength, Gait, Therapeutic Exercise, Transfers Treatment Duration: Jun 03, 2019 Frequency: 6 times per week Estimated Hrs Per Day: .25 hour per day Patient and/or Family Agrees t: Yes Safety Risks/Education Patient Education: Gait Training, Transfer Techniques, Safety Issues Teaching Recipient: Patient Teaching Methods: Demonstration, Discussion Response to Teaching: Verbalize Understanding, Return Demonstration, Reinforcement Needed Time/GCodes Time In: 937 Time Out: 948 Total Billed Treatment Time: 11 Total Billed Treatment 1 visit, FA x11 min ARSLAN ELIZABETH PRESCHOOL DIRECTOR May 24, 2019 09:58
--- NOTE | 2019-05-24 12:49 | Cardiology Progress Note ---
Cardiology SOAP Progress Note Subjective: No significant cardiac complaints. Objective: I&O/Vital Signs 05/24/19 05/24/19 05/24/19 05/24/19 02:10 04:20 07:05 07:54 Temp 37.1 37.0 Pulse 73 86 Resp 20 22 B/P (MAP) 171/64 (99) 171/69 (103) Pulse Ox 88 92 75 94 O2 Delivery Nasal Cannula High Flow N/C Room Air High Flow N/C O2 Flow Rate 5.00 3.50 6.00 05/24/19 05/24/19 05/24/19 09:00 11:26 11:58 Temp 37.4 Pulse 71 Resp 22 B/P (MAP) 146/63 (90) Pulse Ox 94 93 93 O2 Delivery High Flow N/C High Flow N/C Nasal Cannula O2 Flow Rate 6.00 6.00 6.00 05/24/19 00:00 Intake Total 720 ml Output Total 100 ml Balance 620 ml Constitutional: appears stated age, AAO x 3; No apparent distress; well- developed, well-nourished Respiratory: chest is bilaterally symmetric, lungs clear to auscultation Cardiovascular: regular rate-rhythm, S1 and S2 Gastrointestional: soft, audible bowel sounds; No spleenomegaly Extremities: normal range of motion, non-tender, normal inspection; No clubbing, No cyanosis; no lower extremity edema bilateral; No significant edema Neurologic/Psychiatric: no motor/sensory deficits, alert, normal mood/affect, oriented x 3, power is 5/5 both on sides Skin: normal color; No rash, No ulcerations Results/Procedures: Labs Laboratory Tests 05/23/19 15:45: Glucometer 157H 05/23/19 20:51: Glucometer 188H 05/24/19 05:05: Sodium Level 145, Potassium Level 4.0, Chloride Level 111H, Carbon Dioxide Level 25, Anion Gap 9, Blood Urea Nitrogen 39H, Creatinine 1.61H, Estimat Glomerular Filtration Rate 41, BUN/Creatinine Ratio 24, Glucose Level 108H, Calcium Level 7.9L 05/24/19 05:09: White Blood Count 6.8, Red Blood Count 2.47L, Hemoglobin 7.4L, Hematocrit 24L, Mean Corpuscular Volume 98, Mean Corpuscular Hemoglobin 30, Mean Corpuscular Hemoglobin Concent 31L, Red Cell Distribution Width 18.1H, Platelet Count 112L, Mean Platelet Volume 9.4, Neutrophils (%) (Auto) 84H, Lymphocytes (%) (Auto) 5L, Monocytes (%) (Auto) 4, Eosinophils (%) (Auto) 7, Basophils (%) (Auto) 0, Neutrophils # (Auto) 5.7, Lymphocytes # (Auto) 0.4L, Monocytes # (Auto) 0.3, Eosinophils # (Auto) 0.5H, Basophils # (Auto) 0.0 05/24/19 11:34: Glucometer 121H Microbiology 05/18/19 Urine Culture - Final, Complete YEAST Staphylococcus epidermidis 05/18/19 Blood Culture - Preliminary, Resulted No growth 05/18/19 Influenza Types A,B Antigen ([place]) - Final, Complete A/P: Assessment/Dx: Severe anemia, Possible type II myocardial infarction, Acute respiratory failure, pneumonia, sepsis. Acute diastolic Congestive heart failure, Acute on chronic kidney injury, Hypercalcemia, Pulmonary hypertension, Moderate to severe mitral regurgitation Plan: Severe anemia, source of anemia unknown. We still do not know if there is active bleeding. He has received numerous transfusion but still continues to be anemic. Might require hematology consultation. Hemoglobin today 8. Possible type II myocardial infarction, positive cardiac enzymes. Likely due to demand ischemia due to severe anemia. Coronary angiography and possible intervention are contraindicated detail source of anemia is known and bleeding can be ruled out. We might start with a nuclear stress test for risk str atification. We will perform on 05/23/2019. Nuclear stress is done on 05/23/2019 was low risk with no significant area of infarct or ischemia. Acute respiratory failure, pneumonia, sepsis. On broad spectrum IV antibiotics. Acute diastolic Congestive heart failure, elevated BNP. Echocardiogram will be recommended. Echocardiogram shows normal LVEF with diastolic dysfunction. Moderate to severe mitral regurgitation. PA pressure significantly elevated. Acute on chronic kidney injury, creatinine 2.15 on 05/21/2019. Hypercalcemia, Moderate to severe mitral regurgitation, IV Lasix is recommended. Pulmonary hypertension, unclear etiology. Thank you for your consultation. Please call me if you have any questions. Estela Brumfield MD, FACP, FACC, FSCAI, FHRS, CCDS Interventional Cardiology Cardiac Electrophysiology Vascular Medicine and Endovascular Interventions Reyes BRUMFIELD MD May 24, 2019 12:49
--- NOTE | 2019-05-24 13:53 | Progress Note - Surgery ---
Subjective Time Seen by a Provider: 13:34 Subjective/Events-last exam Pt seen and examined, resting in chair comfortably. Pt wants to go home, but states that last week he didn't want anything done and now he thinks that if doing EGD will stop his Hemoglobin from falling then he wants it done. Denies abdominal pain. Review of Systems General: No Chills, No Night Sweats; Fatigue, Malaise Pulmonary: Dyspnea; No Cough Cardiovascular: No: Chest Pain, Palpitations Gastrointestinal: No: Nausea, Vomiting, Abdominal Pain Objective Exam Vital Signs Date Time Temp Pulse Resp B/P (MAP) Pulse Ox O2 Delivery O2 Flow Rate FiO2 05/24/19 11:58 93 Nasal Cannula 6.00 05/24/19 11:26 37.4 71 22 146/63 (90) 93 High Flow N/C 6.00 05/24/19 09:00 94 High Flow N/C 6.00 05/24/19 07:54 37.0 86 22 171/69 (103) 94 High Flow N/C 6.00 05/24/19 07:05 75 Room Air 05/24/19 04:20 37.1 73 20 171/64 (99) 92 High Flow N/C 3.50 05/24/19 02:10 88 Nasal Cannula 5.00 05/24/19 00:45 37.5 74 20 168/56 (93) 90 High Flow N/C 3.50 05/23/19 22:34 88 Nasal Cannula 5.00 05/23/19 21:00 Nasal Cannula 3.50 05/23/19 20:30 37.2 80 22 170/56 (94) 91 High Flow N/C 5.00 05/23/19 19:05 86 Nasal Cannula 4.00 05/23/19 16:18 36.4 71 20 133/57 (82) 90 High Flow N/C 4.00 05/23/19 15:34 90 Nasal Cannula 4.00 I & O 05/24/19 07:00 Intake Total 1020 ml Output Total 300 ml Balance 720 ml Capillary Refill : Less Than 3 SecondsLess Than 3 Seconds General Appearance: No Apparent Distress, Chronically ill, Thin HEENT: PERRL/EOMI, Pharynx Normal Respiratory: Lungs Clear, No Respiratory Distress, Decreased Breath Sounds (on supplemental O2) Cardiovascular: Regular Rate, Rhythm, No Edema, No Murmur Peripheral Pulses: 2+ Dorsalis Pedis (R), 2+ Left Dors-Pedis (L), 2+ Radial Pulses (R), 2+ Radial Pulses (L) Gastrointestinal: normal bowel sounds, non tender, soft, no organomegaly, no pulsatile mass Extremity: No Calf Tenderness, No Pedal Edema Neurologic/Psychiatric: Alert, Oriented x3 Skin: Normal Color, Warm/Dry Results Lab Laboratory Tests 05/23/19 15:45: Glucometer 157H 05/23/19 20:51: Glucometer 188H 05/24/19 05:05: Sodium Level 145, Potassium Level 4.0, Chloride Level 111H, Carbon Dioxide Level 25, Anion Gap 9, Blood Urea Nitrogen 39H, Creatinine 1.61H, Estimat Glomerular Filtration Rate 41, BUN/Creatinine Ratio 24, Glucose Level 108H, Calcium Level 7.9L 05/24/19 05:09: White Blood Count 6.8, Red Blood Count 2.47L, Hemoglobin 7.4L, Hematocrit 24L, Mean Corpuscular Volume 98, Mean Corpuscular Hemoglobin 30, Mean Corpuscular Hemoglobin Concent 31L, Red Cell Distribution Width 18.1H, Platelet Count 112L, Mean Platelet Volume 9.4, Neutrophils (%) (Auto) 84H, Lymphocytes (%) (Auto) 5L, Monocytes (%) (Auto) 4, Eosinophils (%) (Auto) 7, Basophils (%) (Auto) 0, Neutrophils # (Auto) 5.7, Lymphocytes # (Auto) 0.4L, Monocytes # (Auto) 0.3, Eosinophils # (Auto) 0.5H, Basophils # (Auto) 0.0 05/24/19 11:34: Glucometer 121H Microbiology 05/18/19 Urine Culture - Final, Complete YEAST Staphylococcus epidermidis 05/18/19 Blood Culture - Preliminary, Resulted No growth 05/18/19 Influenza Types A,B Antigen (SHARONA) - Final, Complete Assessment/Plan Assessment/Plan Assessment/Plan Anemia Hx of AVM (stomach) with EGD and cauterization. Hg dropped a little today; will recheck tomorrow. If pt is still in hospital and his Hg drops will do an EGD on Sunday; pt is agreeable to this. Clinical Quality Measures DVT/VTE Risk/Contraindication: Risk Factor Score Per Nursin RFS Level Per Nursing on Admit: 4+=Very High DAYSI CORCORAN DO May 24, 2019 13:53
--- NOTE | 2019-05-24 14:13 | Progress Note - Hospitalist ---
Subjective HPI/CC On Admission Date Seen by Provider: May 24, 2019 Time Seen by Provider: 09:15 Ignacio Moulton is an 83-year-old male with past medical history of hypertension, hyperlipidemia, GERD, hyperthyroidism, chronic kidney disease, heart failure, who presented with fever, shortness of breath, and cough. He was recently hospitalized at [facility] in [place] for about a month. At that time he was being treated for pneumonia, heart failure, and GI bleeding. He has been at [facility] since that time. He reports that he had a couple endoscopies while he was in the hospital. He reports that he has had ongoing me kaley since that time. He currently denies any chest pain. He denies any nausea, vomiting, abdominal pain, or diarrhea. Subjective/Events-last exam He reports feeling a little bit weak this morning. He has been requiring more oxygen this morning. He is unsure if he has had any more melena. He denies any fevers or chills. He denies any chest pain. He denies any nausea or vomiting. Objective Exam Vital Signs Vital Signs Date Time Temp Pulse Resp B/P (MAP) Pulse Ox O2 Delivery O2 Flow Rate FiO2 05/24/19 11:58 93 Nasal Cannula 6.00 05/24/19 11:26 37.4 71 22 146/63 (90) 05/22/19 10:10 32 Capillary Refill : Less Than 3 SecondsLess Than 3 Seconds General Appearance: No Apparent Distress, Chronically ill, Thin Respiratory: Lungs Clear, Normal Breath Sounds, No Respiratory Distress Cardiovascular: Regular Rate, Rhythm, No Edema, No Murmur Gastrointestinal: Normal Bowel Sounds, Non Tender, Soft Extremity: Normal Inspection, Non Tender, No Pedal Edema Neurologic/Psychiatric: Alert, Oriented x3 Skin: Normal Color, Warm/Dry Results/Procedures Lab Laboratory Tests 05/24/19 05:05 05/24/19 05:09 Patient resulted labs reviewed. Imaging: Reviewed Imaging Report Assessment/Plan Assessment and Plan Assess & Plan/Chief Complaint Acute respiratory failure with hypoxia Acute heart failure with preserved ejection fraction NSTEMI Cardiology following Stress test normal Completed course of antibiotics for pneumonia worsening hypoxia today Check BNP and chest x-ray May need diuresis Anemia Melena GERD hemoglobin trending downward, 7.4 this morning Continue PPI General surgery consulted, possible EGD on Sunday Acute kidney injury superimposed on chronic kidney disease Creatinine improving Essential hypertension Hyperlipidemia Hyperthyroidism Continue home meds HCAP, resolved DVT prophylaxis: Holding in setting of GI bleeding Diagnosis/Problems Diagnosis/Problems (1) HCAP (healthcare-associated pneumonia) Status: Resolved Resolution Date/Time: 05/22/19 @ 15:40 (2) Acute respiratory failure with hypoxia Status: Acute (3) NSTEMI (non-ST elevation myocardial infarction) Status: Acute (4) Anemia Status: Acute Qualifiers: Iron deficiency anemia type: chronic blood loss (5) Melena Status: Chronic (6) Acute kidney injury superimposed on chronic kidney disease Status: Acute (7) Essential hypertension Status: Chronic (8) Hyperlipidemia Status: Chronic (9) Hyperthyroidism Status: Chronic Clinical Quality Measures DVT/VTE Risk/Contraindication: Risk Factor Score Per Nursin RFS Level Per Nursing on Admit: 4+=Very High JOLIE CATALAN MD May 24, 2019 14:13
--- NOTE | 2019-05-24 14:20 | NUR ---
Pt O2 CHECKED AND FOUND TO BE 87-90% ON 6L HI FLOW. DR CATALAN NOTIFIED. NEW ORDER PLACED IN EMAR.
--- NOTE | 2019-05-24 14:41 | Diagnostic Imaging Report ---
INDICATION: Hypoxia and pneumonia. TIME OF EXAM: 2:24 PM Correlation is made with prior chest from 05/19/2019. FINDINGS: Worsening right-sided infiltrate is noted. There is significant airspace infiltrate throughout the right upper and right lower lobe. There is also a moderate parenchymal consolidation in the left base, similar to prior. No pneumothorax is seen. IMPRESSION: Bilateral infiltrates, worse on the right when compared with examination from 5 days earlier. Dictated by: Dictated on workstation # [id number]
[2019-05-24] MEDS ORDERED: FUROSEMIDE 40 MG/4 ML INJ (LASIX) IVP ONE (14:45)
--- NOTE | 2019-05-24 16:40 | NUR ---
PT NOTED TO HAVE ONLY URINATED 400 OUT SINCE LASIX WAS GIVEN. BLADDER SCANNED WITH 207 PRESENT AFTER PT URINATED. DR CATALAN NOTIFIED. NO NEW ORDERS RECEIVED AT THIS TIME.
[2019-05-24] MEDS: MIRTAZAPINE 15 MG (REMERON) TAB PO SCH (21:09)
[2019-05-25 02:49] VITALS: BP 159/55
[2019-05-25] MEDS: RT-ALBUTEROL/IPRATROPIUM 3 ML (DUONEB) VIAL INH SCH ×6 (03:08→21:29)
[2019-05-25 04:00] VITALS: BP 166/58
[2019-05-25] MEDS: inSUlin ASPART (NovoLOG) 1 UNIT/0.01 ML (CHARGE PER UNIT) SC SCH ×4 (05:53→21:49)
[2019-05-25 05:59] LABS: BASOPHILS % (AUTO) 0 % (0-10); EOSINOPHILS # (AUTO) 0.5 10^3/uL (0.0-0.3); EOSINOPHILS % (AUTO) 7 % (0-10); HEMATOCRIT 24 % (40-54); HEMOGLOBIN 7.4 G/DL (13.3-17.7); LYMPHOCYTES # (AUTO) 0.3 X 10^3 (1.0-4.0); LYMPHOCYTES % (AUTO) 5 % (12-44); MEAN CORPUSCULAR HEMOGLOBIN 30 PG (25-34); MEAN CORPUSCULAR HGB CONC 31 G/DL (32-36); MEAN CORPUSCULAR VOLUME 98 FL (80-99); MONOCYTES # (AUTO) 0.3 X 10^3 (0.0-1.0); MONOCYTES % (AUTO) 5 % (0-12); NEUTROPHILS # (AUTO) 5.6 X 10^3 (1.8-7.8); NEUTROPHILS % (AUTO) 83 % (42-75); PLATELET COUNT 124 10^3/uL (130-400); RED CELL DISTRIBUTION WIDTH 18.4 % (10.0-14.5); WHITE BLOOD COUNT 6.8 10^3/uL (4.3-11.0)
[2019-05-25 06:26] LABS: CALCIUM 8.1 MG/DL (8.5-10.1); CREATININE SERUM 1.61 MG/DL (0.60-1.30); POTASSIUM 4.1 MMOL/L (3.6-5.0)
--- NOTE | 2019-05-25 07:35 | NUR ---
SPOKE TO DR CATALAN AND INFORMED HIM PT ON 10L O2 WITH SATS OF 83%. NEW ORDERS RECEIVED FOR STAT ABG'S AND TO HAVE RT DECIDE COURSE OF TX.
[2019-05-25 07:47] LABS: ABG BASE EXCESS 4.2 MMOL/L (-2.5-2.5); ABG OXYGEN SATURATION 90 % (94-100); ABG PCO2 49 MMHG (35-45); ABG PH 7.39 (7.37-7.43); ABG PO2 58 MMHG (79-93); ABG TCO2 30.4 MMOL/L (21.0-31.0)
[2019-05-25 07:48] LABS: ALLENS TEST YES-POS; INSPIRED O2 10 L; PATIENT TEMP 37.1; VENTILATOR NO
--- NOTE | 2019-05-25 08:00 | NUR ---
PATIENT ON VAPOTHERM 40/45%, O2 SAT 92 PERCENT, TOLERATING WELL, DENIES PAIN, CALL LIGHT WITHIN REACH
[2019-05-25 08:06] VITALS: BP 183/79
[2019-05-25] MEDS: TERAZOSIN 5 MG (HYTRIN) CAPSULE PO SCH (08:51)
[2019-05-25] MEDS: SENNOSIDES 8.6 MG (SENOKOT) TAB PO SCH ×2 (08:52→21:46)
[2019-05-25] MEDS: hydrALAZINE (APRESOLINE) 25 MG TAB PO SCH ×3 (08:52→21:46)
[2019-05-25] MEDS: ISOSORBIDE MONONITRATE 30 MG (IMDUR) TAB PO SCH (08:52)
[2019-05-25] MEDS: METHIMAZOLE TABLET 5 MG TABLET PO SCH (08:52)
[2019-05-25] MEDS: amLODIPine 10 MG (NORVASC) TAB PO SCH (08:52)
[2019-05-25] MEDS: CYANOCOBALAMIN 1,000 MCG (VITAMIN B-12) TABLET PO SCH (08:52)
[2019-05-25] MEDS: DOCUSATE SODIUM 100 MG (COLACE) CAP PO SCH ×2 (08:52→21:46)
[2019-05-25] MEDS: PANTOPRAZOLE 40 MG (PROTONIX) TAB PO SCH ×2 (08:52→21:46)
[2019-05-25] MEDS: TIMOLOL MALEATE 0.5% 5 ML (TIMOPTIC) BTL OU SCH ×2 (08:53→21:46)
[2019-05-25] MEDS: CARVEDILOL 12.5 MG (COREG) TABLET PO SCH ×2 (08:53→21:46)
--- NOTE | 2019-05-25 09:39 | Progress Note - Hospitalist ---
Subjective HPI/CC On Admission Date Seen by Provider: May 25, 2019 Time Seen by Provider: 08:00 Ignacio Moulton is an 83-year-old male with past medical history of hypertension, hyperlipidemia, GERD, hyperthyroidism, chronic kidney disease, heart failure, who presented with fever, shortness of breath, and cough. He was recently hospitalized at [facility] in [place] for about a month. At that time he was being treated for pneumonia, heart failure, and GI bleeding. He has been at [facility] since that time. He reports that he had a couple endoscopies while he was in the hospital. He reports that he has had ongoing me kaley since that time. He currently denies any chest pain. He denies any nausea, vomiting, abdominal pain, or diarrhea. Subjective/Events-last exam He is sitting in bed eating breakfast this morning. He appears comfortable. He reports shortness of breath. He denies fever or chills. He denies cough. He denies any pain symptoms. He denies leg swelling or pain. Objective Exam Vital Signs Vital Signs Date Time Temp Pulse Resp B/P (MAP) Pulse Ox O2 Delivery O2 Flow Rate FiO2 05/25/19 08:06 37.4 81 22 183/79 (113) 89 High Flow N/C 10.00 05/22/19 10:10 32 Capillary Refill : Less Than 3 SecondsLess Than 3 Seconds General Appearance: No Apparent Distress, Chronically ill, Thin HEENT: PERRL/EOMI, Pharynx Normal Neck: Normal Inspection, Supple Respiratory: Lungs Clear, Normal Breath Sounds, No Respiratory Distress, Other (Wearing nasal cannula) Cardiovascular: Regular Rate, Rhythm, No Edema, No Murmur, Normal Peripheral Pulses Gastrointestinal: Normal Bowel Sounds, Non Tender, Soft Extremity: Normal Capillary Refill, Normal Inspection, Non Tender, No Calf Tenderness, No Pedal Edema Neurologic/Psychiatric: Alert, Oriented x3, No Motor/Sensory Deficits, Normal Mood/Affect Skin: Normal Color, Warm/Dry Lymphatic: No Adenopathy Results/Procedures Lab Laboratory Tests 05/25/19 05:24 Patient resulted labs reviewed. Imaging: Reviewed Imaging Report Assessment/Plan Assessment and Plan Assess & Plan/Chief Complaint Acute respiratory failure with hypoxia Acute heart failure with preserved ejection fraction NSTEMI Cardiology following Stress test normal Completed course of antibiotics for pneumonia Chest x-ray with worsening infiltrates WBC normal, stable Procalcitonin normal BNP elevated, stable from admission Given a dose of IV Lasix yesterday without improvement Obtain CT chest to rule out pulmonary embolism Has been unable to receive pharmacologic DVT prophylaxis due to GI bleeding Risks versus benefits discussed with patient and plan to proceed with CT despite kidney function Anemia Melena GERD hemoglobin stable, 7.4 this morning Continue PPI General surgery following for possible EGD on Sunday Chronic kidney disease stage IIIB Creatinine improving Continue to monitor Essential hypertension Hyperlipidemia Hyperthyroidism Continue home meds HCAP, resolved Acute kidney injury superimposed on chronic kidney disease, resolved DVT prophylaxis: Holding in setting of GI bleeding Diagnosis/Problems Diagnosis/Problems (1) HCAP (healthcare-associated pneumonia) Status: Resolved Resolution Date/Time: 05/22/19 @ 15:40 (2) Acute respiratory failure with hypoxia Status: Acute (3) NSTEMI (non-ST elevation myocardial infarction) Status: Acute (4) Anemia Status: Acute Qualifiers: Iron deficiency anemia type: chronic blood loss (5) Melena Status: Chronic (6) Acute kidney injury superimposed on chronic kidney disease Status: Acute (7) Essential hypertension Status: Chronic (8) Hyperlipidemia Status: Chronic (9) Hyperthyroidism Status: Chronic Clinical Quality Measures DVT/VTE Risk/Contraindication: Risk Factor Score Per Nursin RFS Level Per Nursing on Admit: 4+=Very High JOLIE CATALAN MD May 25, 2019 09:39
[2019-05-25 11:03] VITALS: BP 144/65
[2019-05-25] MEDS ORDERED: HOLD METFORMIN - RECEIVED CONTRAST 20 ML VIAL IV SCH (11:30)
[2019-05-25] MEDS ORDERED: NS 100 ML (IVPB) BAG IV ONE (11:30)
[2019-05-25] MEDS ORDERED: IOHEXOL 350 MG/ML 100 ML (OMNIPAQUE 350) VIAL IV ONE (11:30)
--- NOTE | 2019-05-25 12:05 | Diagnostic Imaging Report ---
PROCEDURE: CT angiography of the chest with contrast. TECHNIQUE: Multiple contiguous axial images were obtained through the chest after uneventful bolus administration of intravenous contrast. 3D reconstructed CTA MIP acquisitions were also performed. Auto Exposure Controls were utilized during the CT exam to meet ALARA standards for radiation dose reduction. INDICATION: Hypoxia. FINDINGS: There is good opacification of the aorta and pulmonary arteries. There is endoluminal stent graft in the aorta without evidence of stent graft leak. No evidence of aneurysm. The pulmonary artery is well opacified. The vessels show no filling defects to indicate pulmonary emboli. There are moderate bilateral pleural effusions. There is considerable atelectasis of the lower lobes bilaterally. There is consolidated infiltrate in the right upper lobe. There is rather severe honeycomb appearance noted to the upper lobes bilaterally. No mediastinal or hilar adenopathy of pathologic size though there are scattered lymph nodes measuring upwards of 1 x 1.5 cm throughout the mediastinum. The adrenal glands are not enlarged. IMPRESSION: 1. No evidence of pulmonary emboli. 2. No evidence of aortic aneurysm. 3. Moderate bilateral pleural effusions with lower lobe atelectasis. 4. Consolidated infiltrate in the right upper lobe. 5. Rather severe honeycombing noted of the upper lobes bilaterally. Dictated by: Dictated on workstation # [id number]
[2019-05-25] MEDS ORDERED: FUROSEMIDE 40 MG/4 ML INJ (LASIX) IVP ONE ×2 (12:30→18:30)
--- NOTE | 2019-05-25 14:14 | Progress Note - Surgery ---
Subjective Time Seen by a Provider: 13:26 Subjective/Events-last exam Pt seen and examined, denies abdominal pain. His main complaint is of trouble breathing. Hg is stable. Review of Systems Pulmonary: Dyspnea; No Pleuritic Chest Pain Cardiovascular: No: Chest Pain, Palpitations Gastrointestinal: No: Nausea, Vomiting, Abdominal Pain Objective Exam Vital Signs Date Time Temp Pulse Resp B/P (MAP) Pulse Ox O2 Delivery O2 Flow Rate FiO2 05/25/19 11:03 36.8 67 22 144/65 (91) 87 Vapotherm 35.00 40.00 05/25/19 10:25 96 Vapotherm 40.00 45 05/25/19 09:00 93 Vapotherm 05/25/19 08:06 37.4 81 22 183/79 (113) 89 High Flow N/C 10.00 05/25/19 07:19 78 High Flow N/C 10.00 05/25/19 04:00 37.0 77 22 166/58 (94) 90 High Flow N/C 8.00 05/25/19 03:09 89 High Flow N/C 8.00 05/25/19 02:49 37.1 62 92 05/24/19 23:45 37.1 62 20 159/55 (89) 92 High Flow N/C 8.00 05/24/19 22:59 91 High Flow N/C 8.00 05/24/19 21:30 94 High Flow N/C 6.00 05/24/19 20:00 36.9 69 20 165/70 (101) 94 High Flow N/C 8.00 05/24/19 18:43 Nasal Cannula 05/24/19 16:00 37.0 68 20 177/65 (102) 90 High Flow N/C 6.00 05/24/19 14:37 88 Nasal Cannula 6.00 05/24/19 14:16 90 High Flow N/C 6.00 I & O 05/25/19 07:00 Intake Total 1600 ml Output Total 1200 ml Balance 400 ml Capillary Refill : Less Than 3 SecondsLess Than 3 Seconds General Appearance: No Apparent Distress, Chronically ill, Thin HEENT: PERRL/EOMI, Pharynx Normal Respiratory: Lungs Clear, Normal Breath Sounds, No Respiratory Distress, Other (Wearing nasal cannula) Cardiovascular: Regular Rate, Rhythm, No Edema, No Murmur, Normal Peripheral Pulses Peripheral Pulses: 2+ Dorsalis Pedis (R), 2+ Left Dors-Pedis (L), 2+ Radial Pulses (R), 2+ Radial Pulses (L) Gastrointestinal: normal bowel sounds, non tender, soft, no organomegaly, no pulsatile mass Extremity: No Calf Tenderness, No Pedal Edema Neurologic/Psychiatric: Alert, Oriented x3 Results Lab Laboratory Tests 05/24/19 15:41: Glucometer 146H 05/24/19 20:51: Glucometer 122H 05/25/19 05:22: Glucometer 96 05/25/19 05:24: White Blood Count 6.8, Red Blood Count 2.48L, Hemoglobin 7.4L, Hematocrit 24L, Mean Corpuscular Volume 98, Mean Corpuscular Hemoglobin 30, Mean Corpuscular Hemoglobin Concent 31L, Red Cell Distribution Width 18.4H, Platelet Count 124L, Mean Platelet Volume 9.0, Neutrophils (%) (Auto) 83H, Lymphocytes (%) (Auto) 5L, Monocytes (%) (Auto) 5, Eosinophils (%) (Auto) 7, Basophils (%) (Auto) 0, Neutrophils # (Auto) 5.6, Lymphocytes # (Auto) 0.3L, Monocytes # (Auto) 0.3, Eosinophils # (Auto) 0.5H, Basophils # (Auto) 0.0, Sodium Level 145, Potassium Level 4.1, Chloride Level 109H, Carbon Dioxide Level 25, Anion Gap 11, Blood Urea Nitrogen 36H, Creatinine 1.61H, Estimat Glomerular Filtration Rate 41, BUN/Creatinine Ratio 22, Glucose Level 92, Calcium Level 8.1L, Procalcitonin 0.08 05/25/19 07:36: Blood Gas Puncture Site RT RAD, Blood Gas Patient Temperature 37.1, Arterial Blood pH 7.39, Arterial Blood Partial Pressure CO2 49H, Arterial Blood Partial Pressure O2 58L, Arterial Blood HCO3 29H, Arterial Blood Total CO2 30.4, Arterial Blood Oxygen Saturation 90L, Arterial Blood Base Excess 4.2H, Javi Test YES-POS, Blood Gas Ventilator Setting NO, Blood Gas Inspired Oxygen 10 L 05/25/19 11:06: Glucometer 162H Microbiology 05/18/19 Urine Culture - Final, Complete YEAST Staphylococcus epidermidis 05/18/19 Blood Culture - Final, Complete No growth 05/18/19 Influenza Types A,B Antigen (SHARONA) - Final, Complete Assessment/Plan Assessment/Plan Assessment/Plan Anemia -stable Hx of AVM (stomach) with EGD and cauterization. Hg stable today; will recheck tomorrow. If pt is still in hospital and his Hg drops will do an EGD on Sunday; pt is agreeable to this. It is looking like this may be unnecessary but will make him NPO after midnight just in case. Clinical Quality Measures DVT/VTE Risk/Contraindication: Risk Factor Score Per Nursin RFS Level Per Nursing on Admit: 4+=Very High DAYSI CORCORAN DO May 25, 2019 14:14
[2019-05-25] MEDS: CEFEPIME INJECTION 1,000 MG in WATER (STERILE) FOR INJECTION 10 ML IV SCH ×2 (14:17→21:46)
--- NOTE | 2019-05-25 14:43 | Cardiology Progress Note ---
Cardiology SOAP Progress Note Subjective: Shortness of breath. Objective: I&O/Vital Signs 05/25/19 05/25/19 05/25/19 05/25/19 02:49 03:09 04:00 07:19 Temp 37.1 37.0 Pulse 62 77 Resp 22 B/P (MAP) 166/58 (94) Pulse Ox 92 89 90 78 O2 Delivery High Flow N/C High Flow N/C High Flow N/C O2 Flow Rate 8.00 8.00 10.00 05/25/19 05/25/19 05/25/19 05/25/19 08:06 09:00 10:25 11:03 Temp 37.4 36.8 Pulse 81 67 Resp 22 22 B/P (MAP) 183/79 (113) 144/65 (91) Pulse Ox 89 93 96 87 O2 Delivery High Flow N/C Vapotherm Vapotherm Vapotherm O2 Flow Rate 10.00 40.00 35.00 40.00 FiO2 45 05/25/19 00:00 Intake Total 1500 ml Output Total 600 ml Balance 900 ml Constitutional: appears stated age, AAO x 3; No apparent distress; well-developed, well-nourished Respiratory: chest is bilaterally symmetric, wheezing (bilateral wheezing.) Cardiovascular: regular rate-rhythm, S1 and S2 Gastrointestional: soft, audible bowel sounds; No spleenomegaly Extremities: normal range of motion, non-tender, normal inspection; No clubbing, No cyanosis; no lower extremity edema bilateral; No significant edema Neurologic/Psychiatric: no motor/sensory deficits, alert, normal mood/affect, oriented x 3, power is 5/5 both on sides Skin: normal color; No rash, No ulcerations Results/Procedures: Labs Laboratory Tests 05/24/19 15:41: Glucometer 146H 05/24/19 20:51: Glucometer 122H 05/25/19 05:22: Glucometer 96 05/25/19 05:24: White Blood Count 6.8, Red Blood Count 2.48L, Hemoglobin 7.4L, Hematocrit 24L, Mean Corpuscular Volume 98, Mean Corpuscular Hemoglobin 30, Mean Corpuscular Hemoglobin Concent 31L, Red Cell Distribution Width 18.4H, Platelet Count 124L, Mean Platelet Volume 9.0, Neutrophils (%) (Auto) 83H, Lymphocytes (%) (Auto) 5L, Monocytes (%) (Auto) 5, Eosinophils (%) (Auto) 7, Basophils (%) (Auto) 0, Neutrophils # (Auto) 5.6, Lymphocytes # (Auto) 0.3L, Monocytes # (Auto) 0.3, Eosinophils # (Auto) 0.5H, Basophils # (Auto) 0.0, Sodium Level 145, Potassium Level 4.1, Chloride Level 109H, Carbon Dioxide Level 25, Anion Gap 11, Blood Urea Nitrogen 36H, Creatinine 1.61H, Estimat Glomerular Filtration Rate 41, BUN/Creatinine Ratio 22, Glucose Level 92, Calcium Level 8.1L, Procalcitonin 0.08 05/25/19 07:36: Blood Gas Puncture Site RT RAD, Blood Gas Patient Temperature 37.1, Arterial Blood pH 7.39, Arterial Blood Partial Pressure CO2 49H, Arterial Blood Partial Pressure O2 58L, Arterial Blood HCO3 29H, Arterial Blood Total CO2 30.4, Arterial Blood Oxygen Saturation 90L, Arterial Blood Base Excess 4.2H, Javi Test YES-POS, Blood Gas Ventilator Setting NO, Blood Gas Inspired Oxygen 10 L 05/25/19 11:06: Glucometer 162H Microbiology 05/18/19 Urine Culture - Final, Complete YEAST Staphylococcus epidermidis 05/18/19 Blood Culture - Final, Complete No growth 05/18/19 Influenza Types A,B Antigen (SHARONA) - Final, Complete A/P: Assessment/Dx: Severe anemia, Possible type II myocardial infarction, Acute respiratory failure, pneumonia, sepsis. Acute diastolic Congestive heart failure, Acute on chronic kidney injury, Hypercalcemia, Pulmonary hypertension, Moderate to severe mitral regurgitation Plan: Severe anemia, source of anemia unknown. We still do not know if there is active bleeding. He has received numerous transfusion but still continues to be anemic. Defer to the primary team. Possible type II myocardial infarction, positive cardiac enzymes. Likely due to demand ischemia due to severe anemia. Coronary angiography and possible intervention are contraindicated detail source of anemia is known and bleeding can be ruled out. We might start with a nuclear stress test for risk stratification. We will perform on 05/23/2019. Nuclear stress is done on 05/23/2019 was low risk with no significant area of infarct or ischemia. Acute respiratory failure, pneumonia, sepsis. On broad spectrum IV antibiotics. Worsening respiratory status today. On Vapotherm. Wheezing noted. Acute diastolic Congestive heart failure, elevated BNP. Echocardiogram will be recommended. Echocardiogram shows normal LVEF with diastolic dysfunction. Moderate to severe mitral regurgitation. PA pressure significantly elevated. Acute on chronic kidney injury, creatinine 2.15 on 05/21/2019. Hypercalcemia, Moderate to severe mitral regurgitation, IV Lasix is recommended. Pulmonary hypertension, unclear etiology. Thank you for your consultation. Please call me if you have any questions. Estela Brumfield MD, FACP, FACC, FSCAI, FHRS, CCDS Interventional Cardiology Cardiac Electrophysiology Vascular Medicine and Endovascular Interventions Reyes BRUMFIELD MD May 25, 2019 14:43
[2019-05-25 16:00] VITALS: BP 134/62
--- NOTE | 2019-05-25 17:49 | NUR ---
NPO AFTER MIDNIGHT FOR POSSIBLE EDG IN AM BY DR CORCORAN
[2019-05-25 20:03] VITALS: BP 160/70
[2019-05-25] MEDS: MIRTAZAPINE 15 MG (REMERON) TAB PO SCH (21:46)
[2019-05-25] MEDS: MELATONIN 3 MG TABLET PO PRN (21:48)
[2019-05-26] VITALS (7 sets, daily range): BP systolic 138–167; BP diastolic 52–73
[2019-05-26] MEDS: RT-ALBUTEROL/IPRATROPIUM 3 ML (DUONEB) VIAL INH SCH ×6 (01:22→22:22)
[2019-05-26 06:06] LABS: BASOPHILS % (AUTO) 1 % (0-10); EOSINOPHILS # (AUTO) 0.4 10^3/uL (0.0-0.3); EOSINOPHILS % (AUTO) 7 % (0-10); HEMATOCRIT 25 % (40-54); HEMOGLOBIN 7.7 G/DL (13.3-17.7); LYMPHOCYTES # (AUTO) 0.5 X 10^3 (1.0-4.0); LYMPHOCYTES % (AUTO) 8 % (12-44); MEAN CORPUSCULAR HEMOGLOBIN 30 PG (25-34); MEAN CORPUSCULAR HGB CONC 31 G/DL (32-36); MEAN CORPUSCULAR VOLUME 98 FL (80-99); MEAN PLATELET VOLUME 8.7 FL (7.4-10.4); MONOCYTES # (AUTO) 0.5 X 10^3 (0.0-1.0); MONOCYTES % (AUTO) 8 % (0-12); NEUTROPHILS # (AUTO) 4.5 X 10^3 (1.8-7.8); NEUTROPHILS % (AUTO) 76 % (42-75); PLATELET COUNT 126 10^3/uL (130-400); RED CELL DISTRIBUTION WIDTH 18.7 % (10.0-14.5)
[2019-05-26] MEDS: inSUlin ASPART (NovoLOG) 1 UNIT/0.01 ML (CHARGE PER UNIT) SC SCH ×4 (06:08→21:06)
[2019-05-26] MEDS: CEFEPIME INJECTION 1,000 MG in WATER (STERILE) FOR INJECTION 10 ML IV SCH ×3 (06:11→22:48)
[2019-05-26 06:41] LABS: CALCIUM 8.3 MG/DL (8.5-10.1); CREATININE SERUM 1.88 MG/DL (0.60-1.30); POTASSIUM 4.1 MMOL/L (3.6-5.0)
[2019-05-26] MEDS: METHIMAZOLE TABLET 5 MG TABLET PO SCH (09:33)
[2019-05-26] MEDS: amLODIPine 10 MG (NORVASC) TAB PO SCH (09:33)
[2019-05-26] MEDS: TERAZOSIN 5 MG (HYTRIN) CAPSULE PO SCH (09:33)
[2019-05-26] MEDS: ISOSORBIDE MONONITRATE 30 MG (IMDUR) TAB PO SCH (09:33)
[2019-05-26] MEDS: hydrALAZINE (APRESOLINE) 25 MG TAB PO SCH ×3 (09:33→20:14)
[2019-05-26] MEDS: TIMOLOL MALEATE 0.5% 5 ML (TIMOPTIC) BTL OU SCH ×2 (09:39→20:21)
[2019-05-26] MEDS: CARVEDILOL 12.5 MG (COREG) TABLET PO SCH ×2 (09:46→20:16)
--- NOTE | 2019-05-26 09:55 | Physical Therapy Daily Note ---
PT Daily Note-Current Subjective PT entered room and patient had removed Vapotherm NC. SAO2 83%. Recovered to 91% after 1 min on 100%/45L. Nursing notified. Mental Status Patient Orientation: Normal For Age Attachments: Oxygen (vapotherm) Transfers SCALE: Activities may be completed with or without assistive devices. 5-Avsyaxlnxn-ypiaqyd completes the activity by him/herself with no assistance from a helper. 5-Set-up or Clean-up Assistance-helper sets up or cleans up; patient completes activity. Powell assists only prior to or following the activity. 4-Supervision or Touching Assistance-helper provides verbal cues and/or touchin g/steadying and/or contact guard assistance as patient completes activity. Assistance may be provided throughout the activity or intermittently. 3-Partial/Moderate Assistance-helper does LESS THAN HALF the effort. Powell lifts, holds or supports trunk or limbs, but provides less than half the effort. 2-Substantial/Maximal Assistance-helper does MORE THAN HALF the effort. Powell lifts or holds trunk or limbs and provides more than half the effort. 9-Fbatebqld-gwywws does ALL the effort. Patient does none of the effort to complete the activity. Or, the assistance of 2 or more helpers is required for the patient to complete the activity. If activity was not attempted, code reason: 7-Patient Refused. 9-Not Applicable-not attempted and the patient did not perform the activity before the current illness, exacerbation or injury. 10-Not Attempted due to Environmental Limitations-(lack of equipment, weather restraints, etc.). 88-Not Attempted due to Medical Conditions or Safety Concerns. Roll Left & Right (QC): 6 Sit to Lying (QC): 6 Lying to Sitting/Side of Bed(Q: 6 Sit to Stand (QC): 6 Chair/Qdt-aq-Ilcch Xfer(QC): 6 Toilet Transfer (QC): 6 Patient transferred to commode then recliner from bed. Exercises Seated Therapy Exercises: Ankle pumps, Long arc quads, Hip flexion Seated Reps: 15 (2 set) Assessment Patient tolerated treatment well and is up in recliner with needs met. Per report, patient to have an EGD on this date. PT Short Term Goals Short Term Goals Time Frame: Jun 03, 2019 Roll Left & Right: 6 Sit to lyin Lying to sitting on side of be: 6 Sit to stand: 6 Chair/rdj-ub-sgppx transfer: 6 Toilet transfer: 6 Car transfer: 6 Walk 10 feet: 6 Walk 50 feet with two turns: 6 Walk 150 feet: 6 Walking 10ft on uneven surface: 6 1 step (curb): 6 PT Plan Treatment/Plan Treatment Plan: Continue Plan of Care Treatment Plan: Bed Mobility, Concurrent Therapy, Functional Activity Dennis, Functional Strength, Gait, Therapeutic Exercise, Transfers Treatment Duration: Jun 03, 2019 Frequency: 6 times per week Estimated Hrs Per Day: .25 hour per day Patient and/or Family Agrees t: Yes Time/GCodes Time In: 850 Time Out: 907 Total Billed Treatment Time: 17 Total Billed Treatment 1 visit EX 17 min AVTAR ORTEGA PT May 26, 2019 09:55
--- NOTE | 2019-05-26 13:18 | Progress Note - Hospitalist ---
Subjective HPI/CC On Admission Date Seen by Provider: May 26, 2019 Time Seen by Provider: 13:13 Ignacio Moulton is an 83-year-old male with past medical history of hypertension, hyperlipidemia, GERD, hyperthyroidism, chronic kidney disease, heart failure, who presented with fever, shortness of breath, and cough. He was recently hospitalized at [facility] in [place] for about a month. At that time he was being treated for pneumonia, heart failure, and GI bleeding. He has been at [facility] since that time. He reports that he had a couple endoscopies while he was in the hospital. He reports that he has had ongoing me kaley since that time. He currently denies any chest pain. He denies any nausea, vomiting, abdominal pain, or diarrhea. Subjective/Events-last exam Pt reports feeling better. Breathing has improved but is on Vapotherm now. No other complaints. He is requesting education about diet and what he can eat that is low sodium, specifically asked about [employer] sandwiches and canned fruit. Objective Exam Vital Signs Vital Signs Date Time Temp Pulse Resp B/P (MAP) Pulse Ox O2 Delivery O2 Flow Rate FiO2 05/26/19 11:53 98 Vapotherm 30.00 100 05/26/19 11:12 36.4 60 18 138/66 (90) Capillary Refill : Less Than 3 SecondsLess Than 3 Seconds General Appearance: No Apparent Distress Respiratory: Lungs Clear, No Accessory Muscle Use, Other (on vapotherm) Cardiovascular: Regular Rate, Rhythm, No Murmur Neurologic/Psychiatric: Alert, Oriented x3 Results/Procedures Lab Laboratory Tests 05/26/19 05:45 Patient resulted labs reviewed. Imaging: Reviewed Imaging Report Assessment/Plan Assessment and Plan Assess & Plan/Chief Complaint Acute respiratory failure with hypoxia Acute heart failure with preserved ejection fraction NSTEMI Cardiology following, appreciate recs Stress test normal- no need for cath Has completed course of abx for PNA WBC normal, stable Procalcitonin normal CTA shows no PE but right upper lobe consolidation and severe honeycombing Anemia Melena GERD hemoglobin stable, 7.4 this morning Continue PPI Discussed with Dr Soliz- will not scope today - Will check iron levels Chronic kidney disease stage IIIB Creatinine improving Continue to monitor Essential hypertension Hyperlipidemia Hyperthyroidism Continue home meds Debility - PT/OT HCAP, resolved Acute kidney injury superimposed on chronic kidney disease, resolved DVT prophylaxis: Holding in setting of GI bleeding Clinical Quality Measures DVT/VTE Risk/Contraindication: Risk Factor Score Per Nursin RFS Level Per Nursing on Admit: 4+=Very High ABHINAV MCGILL MD May 26, 2019 13:18
[2019-05-26] MEDS: SENNOSIDES 8.6 MG (SENOKOT) TAB PO SCH ×2 (13:38→20:15)
[2019-05-26] MEDS: PANTOPRAZOLE 40 MG (PROTONIX) TAB PO SCH ×2 (13:38→20:14)
[2019-05-26] MEDS: DOCUSATE SODIUM 100 MG (COLACE) CAP PO SCH ×2 (13:38→20:14)
[2019-05-26] MEDS: CYANOCOBALAMIN 1,000 MCG (VITAMIN B-12) TABLET PO SCH (13:42)
--- NOTE | 2019-05-26 14:06 | NUR ---
Swing Bed Note: Qualifies for swing bed for continued need of short term Physical et Occupational therapies while continuing to wean from Vapotherm. Visited with the patient et his family member at bedside about what swing bed is et different care plan options that they would have available to them depending on their goals of care. Brady's ultimate goal is to get well enough to get back home. He is hopeful he will be strong enough to go straight home from this hospitalization. Encourage him to work his tail off with therapy et he agreed that he would. He reports that he has a daughter that is a therapist et understands how important they are. Both had many questions et report that their questions have been answered to their satisfaction. Anticipate admission to swing bed tomorrow 05/27.
--- NOTE | 2019-05-26 14:20 | NUR ---
Pastoral care visit.
--- NOTE | 2019-05-26 15:27 | Progress Note - Surgery ---
Subjective Time Seen by a Provider: 14:56 Subjective/Events-last exam Pt seen and examined, denies and abdominal problems. States his breathing is ok; but he is requiring Vapotherm. Review of Systems General: No Chills, No Night Sweats Pulmonary: Dyspnea Cardiovascular: No: Chest Pain, Palpitations Gastrointestinal: No: Nausea, Vomiting, Abdominal Pain Objective Exam Vital Signs Date Time Temp Pulse Resp B/P (MAP) Pulse Ox O2 Delivery O2 Flow Rate FiO2 05/26/19 14:59 99 Vapotherm 30.00 90 05/26/19 14:15 36.4 69 98 90 05/26/19 11:53 98 Vapotherm 30.00 100 05/26/19 11:12 36.4 60 18 138/66 (90) 100 High Flow N/C 6.00 05/26/19 09:00 95 High Flow N/C 6.00 05/26/19 07:39 36.8 63 22 167/52 (90) 95 High Flow N/C 6.00 05/26/19 07:20 95 Vapotherm 30.00 100 05/26/19 07:13 83 Vapotherm 30.00 50 05/26/19 04:00 36.8 66 18 149/73 (98) 94 Vapotherm 30.00 50.00 05/26/19 01:22 89 Vapotherm 30.00 50 05/26/19 00:00 37.7 76 22 150/63 (92) 90 Vapotherm 30.00 50.00 05/25/19 21:29 88 Vapotherm 30.00 50 05/25/19 21:01 90 Vapotherm 35.00 45 05/25/19 20:03 37.3 72 22 160/70 (100) 94 Vapotherm 35.00 40.00 05/25/19 19:07 90 Vapotherm 35.00 45 05/25/19 16:00 36.9 65 20 134/62 (86) 90 Vapotherm 35.00 40.00 I & O 05/26/19 07:00 Intake Total 1596 ml Output Total 2200 ml Balance -604 ml Capillary Refill : Less Than 3 SecondsLess Than 3 Seconds General Appearance: No Apparent Distress HEENT: PERRL/EOMI, Pharynx Normal Respiratory: Lungs Clear, No Accessory Muscle Use, Other (on vapotherm) Cardiovascular: Regular Rate, Rhythm, No Murmur Peripheral Pulses: 2+ Dorsalis Pedis (R), 2+ Left Dors-Pedis (L), 2+ Radial Pulses (R), 2+ Radial Pulses (L) Gastrointestinal: normal bowel sounds, non tender, soft, no organomegaly, no pulsatile mass Extremity: No Calf Tenderness, No Pedal Edema Neurologic/Psychiatric: Alert, Oriented x3 Results Lab Laboratory Tests 05/25/19 15:32: Glucometer 141H 05/25/19 20:43: Glucometer 107 05/26/19 05:22: Glucometer 102 05/26/19 05:45: White Blood Count 6.0, Red Blood Count 2.56L, Hemoglobin 7.7L, Hematocrit 25L, Mean Corpuscular Volume 98, Mean Corpuscular Hemoglobin 30, Mean Corpuscular Hemoglobin Concent 31L, Red Cell Distribution Width 18.7H, Platelet Count 126L, Mean Platelet Volume 8.7, Neutrophils (%) (Auto) 76H, Lymphocytes (%) (Auto) 8L, Monocytes (%) (Auto) 8, Eosinophils (%) (Auto) 7, Basophils (%) (Auto) 1, Neutrophils # (Auto) 4.5, Lymphocytes # (Auto) 0.5L, Monocytes # (Auto) 0.5, Eosinophils # (Auto) 0.4H, Basophils # (Auto) 0.0, Sodium Level 143, Potassium Level 4.1, Chloride Level 106, Carbon Dioxide Level 26, Anion Gap 11, Blood Urea Nitrogen 39H, Creatinine 1.88H, Estimat Glomerular Filtration Rate 34, BUN/Creatinine Ratio 21, Glucose Level 91, Calcium Level 8.3L 05/26/19 11:10: Glucometer 108 Microbiology 05/18/19 Urine Culture - Final, Complete YEAST Staphylococcus epidermidis 05/18/19 Blood Culture - Final, Complete No growth 05/18/19 Influenza Types A,B Antigen (SHARONA) - Final, Complete Assessment/Plan Assessment/Plan Assessment/Plan Anemia -stable Hg again stable today; will cancel any plans for EGD, pt is agreeable to this. It is looking like this may be unnecessary, but can reschedule in future if pt wants recheck or has bleeding episode. Clinical Quality Measures DVT/VTE Risk/Contraindication: Risk Factor Score Per Nursin RFS Level Per Nursing on Admit: 4+=Very High DAYSI CORCORAN DO May 26, 2019 15:27
--- NOTE | 2019-05-26 15:42 | NUR ---
"RD ASSESSMENT PMHx: HTN; HLD; GERD; CKD; HF; hypothyroidism PT INTERACTION: Pt was awake and pleasant during consult for dietary education. Note pt's present at bedside. Pt states he has been eating well since last assessment. Note avg PO intake of 53% x3d, per chart review. Pt states no recent issues with n/v/c/d since last assessment. Note last BM was 05/25 and pt currently on bowel regimen of colace BID; and senna BID, per chart review. ABNORMAL NUTRITION-RELATED LAB VALUES LOW: Ca 8.3 HIGH: BUN 39; cr 1.88 Est. kcal needs: 9008-2591 kcal | 25-30 kcal Est. Pro needs: 93-116 g Pro | 1.2-1.4 g Pro/kg PES STATEMENT: Inadequate oral intake (NI-2.1) related to loss of appetite as evidenced by pt interview | avg PO intake 53% x3d Food- and nutrition-related knowledge deficit (NB-1.1) related to lack of prior nutrition-related education as evidenced by no prior education provided on how to apply food and nutrition related information INTERVENTION: Continue with current diet order of Heart Healthy diet. Add Ensure Enlive (vary) to meals BID, for increased kcal intake. Provides 350 kcal and 13 g Pro per serving. Provided and discussed handout on 2g Na restricted diet. Provided suggestions to lower sodium content in food, such as rinsing canned vegetables, label reading, and preparing food with herbs and spices not containing sodium. asked questions on certain food items like frozen vegetables. RD assured them that these were okay as long as a serving was below 300 mg Na. Pt and appeared confident to follow these suggestions upon discharge. Will continue to follow and reassess as pt needs and status change. MONITOR/EVALUATE: PO Intake; Plan of Care; Hydration Status; Weight Status; Lab Values Reed Mendez, MS, RD, LD"
--- NOTE | 2019-05-26 17:21 | Cardiology Stress Test Report ---
Stress Test Report Type of NM Stress Test: Test Type: LEXISCAN 0.4MG/5ML Date of Procedure/Referring: Date of Procedure: May 23, 2019 PCP Lashae Mederos MD Admitting Physician Lukasz Leung MD Indications: Shortness of breath, positive troponin. Baseline Heart Rate: 69 Baseline Blood Pressure: Blood Pressure Systolic: 139 Blood Pressure Diastolic: 64 Baseline EKG: Baseline EKG: sinus rhythm Summary & Conclusion: Summary: The patient was brought to the stress lab after informed consent was taken. Stress test was performed according to the Lexiscan protocol. 0.4 mg of IV Lexiscan was given. Low-grade exercise was performed. Baseline EKG showed sinus rhythm at 69 BPM, blood pressure 186/65 mmHg. Maximum heart rate of 79 bp m and blood pressure 142/56 mmHg. Patient did not have any chest pain. Multiple PVCs and possible ST depressions in leads V5 and V6. 9.61 mCi of Myoview were given for rest imaging and 30.2 mCi of Myoview given for stress imaging. Transient ischemic dilatation score 1.07 , EF 50 percent. Normal wall motion. Normal myocardial perfusion imaging during rest and stress. Conclusion: Pharmacological stress test was negative for ischemia. Normal LV function with no wall motion abnormalities. Normal myocardial perfusion imaging during rest and stress. Reyes CHAVEZ MD May 26, 2019 17:21
--- NOTE | 2019-05-26 17:29 | Cardiology Progress Note ---
Cardiology SOAP Progress Note Subjective: Worsening shortness of breath. Objective: I&O/Vital Signs 05/26/19 05/26/19 05/26/19 05/26/19 07:13 07:20 07:39 09:00 Temp 36.8 Pulse 63 Resp 22 B/P (MAP) 167/52 (90) Pulse Ox 83 95 95 95 O2 Delivery Vapotherm Vapotherm High Flow N/C High Flow N/C O2 Flow Rate 30.00 30.00 6.00 6.00 FiO2 50 100 05/26/19 05/26/19 05/26/19 05/26/19 11:12 11:53 14:15 14:59 Temp 36.4 36.4 Pulse 60 69 Resp 18 B/P (MAP) 138/66 (90) Pulse Ox 100 98 98 99 O2 Delivery High Flow N/C Vapotherm Vapotherm O2 Flow Rate 6.00 30.00 30.00 FiO2 100 90 90 05/26/19 15:51 Temp 36.6 Pulse 64 Resp 22 B/P (MAP) 139/64 (89) Pulse Ox 98 O2 Delivery Vapotherm O2 Flow Rate 30.00 80.00 05/26/19 00:00 Intake Total 1586 ml Output Total 1500 ml Balance 86 ml Constitutional: appears stated age, AAO x 3; No apparent distress; well- developed, well-nourished Respiratory: chest is bilaterally symmetric, wheezing (bilateral wheezing.) Cardiovascular: regular rate-rhythm, S1 and S2 Gastrointestional: soft, audible bowel sounds; No spleenomegaly Extremities: normal range of motion, non-tender, normal inspection; No clubbing, No cyanosis; no lower extremity edema bilateral; No significant edema Neurologic/Psychiatric: no motor/sensory deficits, alert, normal mood/affect, oriented x 3, power is 5/5 both on sides Skin: normal color; No rash, No ulcerations Results/Procedures: Labs Laboratory Tests 05/25/19 20:43: Glucometer 107 05/26/19 05:22: Glucometer 102 05/26/19 05:45: White Blood Count 6.0, Red Blood Count 2.56L, Hemoglobin 7.7L, Hematocrit 25L, Mean Corpuscular Volume 98, Mean Corpuscular Hemoglobin 30, Mean Corpuscular Hemoglobin Concent 31L, Red Cell Distribution Width 18.7H, Platelet Count 126L, Mean Platelet Volume 8.7, Neutrophils (%) (Auto) 76H, Lymphocytes (%) (Auto) 8L, Monocytes (%) (Auto) 8, Eosinophils (%) (Auto) 7, Basophils (%) (Auto) 1, Neutrophils # (Auto) 4.5, Lymphocytes # (Auto) 0.5L, Monocytes # (Auto) 0.5, Eosinophils # (Auto) 0.4H, Basophils # (Auto) 0.0, Sodium Level 143, Potassium Level 4.1, Chloride Level 106, Carbon Dioxide Level 26, Anion Gap 11, Blood Urea Nitrogen 39H, Creatinine 1.88H, Estimat Glomerular Filtration Rate 34, BUN/Creatinine Ratio 21, Glucose Level 91, Calcium Level 8.3L, Iron Level 69, Total Iron Binding Capacity 240L, Unsaturated Iron Binding Capacity 171, Ma sferrin % Saturation 29 05/26/19 11:10: Glucometer 108 05/26/19 15:51: Glucometer 160H Microbiology 05/18/19 Urine Culture - Final, Complete YEAST Staphylococcus epidermidis 05/18/19 Blood Culture - Final, Complete No growth 05/18/19 Influenza Types A,B Antigen (SHARONA) - Final, Complete A/P: Assessment/Dx: Severe anemia, Possible type II myocardial infarction, Acute respiratory failure, pneumonia, sepsis. Acute diastolic Congestive heart failure, Acute on chronic kidney injury, Hypercalcemia, Pulmonary hypertension, Moderate to severe mitral regurgitation Plan: Severe anemia, source of anemia unknown. We still do not know if there is active bleeding. He has received numerous transfusion but still continues to be anemic. Defer to the primary team. Possible type II myocardial infarction, positive cardiac enzymes. Likely due to demand ischemia due to severe anemia. Coronary angiography and possible intervention are contraindicated detail source of anemia is known and bleeding can be ruled out. We might start with a nuclear stress test for risk stratification. We will perform on 05/23/2019. Nuclear stress is done on 05/23/2019 was low risk with no significant area of infarct or ischemia. Acute respiratory failure, pneumonia, sepsis. On broad spectrum IV antibiotics. Worsening respiratory status today. On Vapotherm. Wheezing noted. Acute diastolic Congestive heart failure, elevated BNP. Echocardiogram will be recommended. Echocardiogram shows normal LVEF with diastolic dysfunction. Moderate to severe mitral regurgitation. PA pressure significantly elevated. Acute on chronic kidney injury, creatinine 2.15 on 05/21/2019. Hypercalcemia, Moderate to severe mitral regurgitation, IV Lasix is recommended. Pulmonary hypertension, unclear etiology. Thank you for your consultation. Please call me if you have any questions. Estela Brumfield MD, FACP, FACC, FSCAI, FHRS, CCDS Interventional Cardiology Cardiac Electrophysiology Vascular Medicine and Endovascular Interventions Reyes BRUMFIELD MD May 26, 2019 17:29
[2019-05-26] MEDS: MELATONIN 3 MG TABLET PO PRN (20:15)
[2019-05-26] MEDS: MIRTAZAPINE 15 MG (REMERON) TAB PO SCH (20:16)
[2019-05-27] VITALS: BP 148/56
[2019-05-27] MEDS: RT-ALBUTEROL/IPRATROPIUM 3 ML (DUONEB) VIAL INH SCH ×3 (02:41→10:16)
[2019-05-27 03:29] VITALS: BP 174/73
[2019-05-27] MEDS: CEFEPIME INJECTION 1,000 MG in WATER (STERILE) FOR INJECTION 10 ML IV SCH (05:48)
[2019-05-27] MEDS: inSUlin ASPART (NovoLOG) 1 UNIT/0.01 ML (CHARGE PER UNIT) SC SCH ×2 (05:49→11:11)
[2019-05-27 06:27] LABS: ABSOLUTE RETIC # 80 10e9/L (24-90); BASOPHILS % (AUTO) 0 % (0-10); EOSINOPHILS # (AUTO) 0.5 10^3/uL (0.0-0.3); EOSINOPHILS % (AUTO) 7 % (0-10); HEMATOCRIT 26 % (40-54); HEMOGLOBIN 7.6 G/DL (13.3-17.7); LYMPHOCYTES # (AUTO) 0.5 X 10^3 (1.0-4.0); LYMPHOCYTES % (AUTO) 7 % (12-44); MEAN CORPUSCULAR HEMOGLOBIN 29 PG (25-34); MEAN CORPUSCULAR HGB CONC 29 G/DL (32-36); MEAN CORPUSCULAR VOLUME 99 FL (80-99); MEAN PLATELET VOLUME 8.4 FL (7.4-10.4); MONOCYTES # (AUTO) 0.5 X 10^3 (0.0-1.0); MONOCYTES % (AUTO) 7 % (0-12); NEUTROPHILS # (AUTO) 5.5 X 10^3 (1.8-7.8); NEUTROPHILS % (AUTO) 79 % (42-75); PLATELET COUNT 157 10^3/uL (130-400); RED CELL DISTRIBUTION WIDTH 18.7 % (10.0-14.5); RETICULOCYTE % 3.04 % (0.50-2.40)
[2019-05-27 06:50] LABS: CALCIUM 8.2 MG/DL (8.5-10.1); CREATININE SERUM 1.96 MG/DL (0.60-1.30); POTASSIUM 4.4 MMOL/L (3.6-5.0)
[2019-05-27 07:47] LABS: ANISOCYTOSIS MODERATE; BAND NEUTROPHILS 3 %; EOSINOPHILS % (MANUAL) 5 %; HYPOCHROMASIA SLIGHT; LYMPHOCYTES % (MANUAL) 5 %; MICROCYTOSIS SLIGHT; MONOCYTES % (MANUAL) 11 %; NEUTROPHILS % (MANUAL) 76 %; POIKILOCYTOSIS SLIGHT; POLYCHROMASIA SLIGHT; SPHEROCYTES SLIGHT
[2019-05-27 07:48] LABS: ELLIPT/OVALOCYTES SLIGHT; TEAR DROP CELLS SLIGHT
[2019-05-27 08:00] VITALS: BP 156/71
[2019-05-27] MEDS: ISOSORBIDE MONONITRATE 30 MG (IMDUR) TAB PO SCH (09:01)
[2019-05-27] MEDS: SENNOSIDES 8.6 MG (SENOKOT) TAB PO SCH (09:01)
[2019-05-27] MEDS: TERAZOSIN 5 MG (HYTRIN) CAPSULE PO SCH (09:01)
[2019-05-27] MEDS: CYANOCOBALAMIN 1,000 MCG (VITAMIN B-12) TABLET PO SCH (09:01)
[2019-05-27] MEDS: DOCUSATE SODIUM 100 MG (COLACE) CAP PO SCH (09:01)
[2019-05-27] MEDS: CARVEDILOL 12.5 MG (COREG) TABLET PO SCH (09:01)
[2019-05-27] MEDS: amLODIPine 10 MG (NORVASC) TAB PO SCH (09:01)
[2019-05-27] MEDS: PANTOPRAZOLE 40 MG (PROTONIX) TAB PO SCH (09:01)
[2019-05-27] MEDS: TIMOLOL MALEATE 0.5% 5 ML (TIMOPTIC) BTL OU SCH (09:02)
[2019-05-27] MEDS: hydrALAZINE (APRESOLINE) 25 MG TAB PO SCH (09:02)
[2019-05-27] MEDS: METHIMAZOLE TABLET 5 MG TABLET PO SCH (09:02)
--- NOTE | 2019-05-27 10:08 | Physical Therapy Daily Note ---
PT Daily Note-Current Subjective Patient agrees to PT. Currently on Vapotherm. Limited mobility due to this. Mental Status Patient Orientation: Normal For Age Attachments: Oxygen Transfers SCALE: Activities may be completed with or without assistive devices. 4-Sofvyrucoq-yiseouk completes the activity by him/herself with no assistance from a helper. 5-Set-up or Clean-up Assistance-helper sets up or cleans up; patient completes activity. Gibson assists only prior to or following the activity. 4-Supervision or Touching Assistance-helper provides verbal cues and/or touching/steadying and/or contact guard assistance as patient completes activity. Assistance may be provided throughout the activity or intermittently. 3-Partial/Moderate Assistance-helper does LESS THAN HALF the effort. Gibson lifts, holds or supports trunk or limbs, but provides less than half the effort. 2-Substantial/Maximal Assistance-helper does MORE THAN HALF the effort. Gibson lifts or holds trunk or limbs and provides more than half the effort. 2-Evscvixlq-jfxzos does ALL the effort. Patient does none of the effort to complete the activity. Or, the assistance of 2 or more helpers is required for the patient to complete the activity. If activity was not attempted, code reason: 7-Patient Refused. 9-Not Applicable-not attempted and the patient did not perform the activity before the current illness, exacerbation or injury. 10-Not Attempted due to Environmental Limitations-(lack of equipment, weather restraints, etc.). 88-Not Attempted due to Medical Conditions or Safety Concerns. Roll Left & Right (QC): 6 Sit to Lying (QC): 6 Lying to Sitting/Side of Bed(Q: 6 Sit to Stand (QC): 5 Chair/Tjy-xs-Djxex Xfer(QC): 5 Gait Training Does the Patient Walk?: Yes Distance: 15' Walk 10 feet (QC): 4 Gait Assistive Device: FWW kyphotic posture and flexed knee stance Exercises Seated Therapy Exercises: Ankle pumps, Long arc quads, Hip flexion Seated Reps: 15 Standing: Marching, Mini squats Standing Reps: 15 (2 sets) Assessment Patient has increase SOA with minimal activity and requires recovery periods in seated position. PT to increase activity as tolerated by patient. PT Short Term Goals Short Term Goals Time Frame: Jun 03, 2019 Roll Left & Right: 6 Sit to lyin Lying to sitting on side of be: 6 Sit to stand: 6 Chair/cvq-vv-hbfpf transfer: 6 Toilet transfer: 6 Car transfer: 6 Walk 10 feet: 6 Walk 50 feet with two turns: 6 Walk 150 feet: 6 Walking 10ft on uneven surface: 6 1 step (curb): 6 PT Plan Treatment/Plan Treatment Plan: Continue Plan of Care Treatment Plan: Bed Mobility, Concurrent Therapy, Functional Activity Dennis, Functional Strength, Gait, Therapeutic Exercise, Transfers Treatment Duration: Jun 03, 2019 Frequency: 6 times per week Estimated Hrs Per Day: .25 hour per day Patient and/or Family Agrees t: Yes Time/GCodes Time In: 918 Time Out: 929 Total Billed Treatment Time: 11 Total Billed Treatment 1 visit EX 11 min AVTAR ORTEGA PT May 27, 2019 10:08
[2019-05-27 13:10] VITALS: BP 156/71
--- NOTE | 2019-05-27 13:57 | Discharge Summary ---
Diagnosis/Chief Complaint Date of Admission May 18, 2019 at 20:00 Date of Discharge May 27, 2019 at 13:12 Discharge Date: May 27, 2019 Admission Diagnosis Healthcare associated pneumonia Primary Care Lukasz Leung MD Discharge Diagnosis (1) HCAP (healthcare-associated pneumonia) Status: Resolved (2) Acute respiratory failure with hypoxia Status: Acute (3) NSTEMI (non-ST elevation myocardial infarction) Status: Acute (4) Anemia Status: Acute (5) Melena Status: Chronic (6) Acute kidney injury superimposed on chronic kidney disease Status: Acute (7) Essential hypertension Status: Chronic (8) Hyperlipidemia Status: Chronic (9) Hyperthyroidism Status: Chronic Discharge Summary Discharge Physical Exam Allergies: Coded Allergies: NKANo Known Allergies (Verified Allergy, Unknown, 11/22/05) Vitals & I&Os Vital Signs Date Time Temp Pulse Resp B/P (MAP) Pulse Ox O2 Delivery O2 Flow Rate FiO2 05/27/19 13:10 37.4 75 20 156/71 92 Vapotherm 20.00 05/27/19 10:16 70 General Appearance: No Apparent Distress, Chronically ill Neurologic/Psychiatric: Alert, Oriented x3 Hospital Course Pt was admitted to the hospital due to HCAP and severe anemia. He was transfused and treated with antibiotics. He improved but had a prolonged hospital stay given severe underlying lung disease. He continued to have high oxygen demand on Vapotherm and needing continued PT/OT so he was discharged to swing bed for these skilled needs. Labs (last 24 hrs) Microbiology 05/18/19 Urine Culture - Final, Complete YEAST Staphylococcus epidermidis 05/18/19 Blood Culture - Final, Complete No growth 05/18/19 Influenza Types A,B Antigen (SHARONA) - Final, Complete Patient resulted labs reviewed. Pending Labs Imaging: Reviewed Imaging Report Discussion & Recommendations Discharge Planning: >30 minutes discharge planning Discharge Home Medications: Active Scripts Active Lorazepam 2 Mg/1 Ml Oral.conc 0 Mg PO Q2H PRN Morphine Conc. 20mg/ml (Morphine Sulfate) 100 Mg/5 Ml Solution 5 Mg PO Q4H PRN Reported Albuterol Sulfate 2.5 Mg/3 Ml Vial.neb 2.5 Mg INH PRN PRN Mucinex (Guaifenesin) 600 Mg Tab.er.12h 1,200 Mg PO BID PRN TAKES 2 (600MG) TABS Bumetanide 2 Mg Tablet 2 Mg PO DAILY Mucinex (Guaifenesin) 600 Mg Tab.er.12h Mirtazapine 15 Mg Tablet 15 Mg PO HS Pantoprazole Sodium 40 Mg Tablet.dr 40 Mg PO BID Terazosin HCl 5 Mg Capsule 5 Mg PO DAILY Methimazole 5 Mg Tablet 7.5 Mg PO DAILY TAKE 1 & OF A 5MG TAB TO EQUAL 7.5MG DAILY Amlodipine Besylate 10 Mg Tablet 10 Mg PO DAILY Timolol Maleate 0.5% (Timolol Maleate) 5 Ml Drops 1 Drop OU BID Potassium Chloride 10 Meq Tab.er.prt 10 Meq PO DAILY Isosorbide Mononitrate ER (Isosorbide Mononitrate) 30 Mg Tab.er.24h 30 Mg PO DAILY Carvedilol 25 Mg Tablet 25 Mg PO BID Instructions to patient/family Please see electronic discharge instructions given to patient. Clinical Quality Measures DVT/VTE Risk/Contraindication: Risk Factor Score Per Nursin RFS Level Per Nursing on Admit: 4+=Very High Problem Qualifiers (1) Anemia: Iron deficiency anemia type: chronic blood loss ABHINAV MCGILL MD May 27, 2019 13:57
--- NOTE | 2019-05-29 08:46 | Physician Query Clarification ---
PQ-Uncertain Diagnosis Admission/Discharge Admission Date: May 18, 2019 at 20:00 Discharge Date: May 27, 2019 at 13:12 The medical record reflects the following clinical scenario: History/Risk Factors: Healthcare associated pneumonia, respiratory failure and NSTEMI Clinical Findings: Heart rate 76, RR 18, T 38.1, WBC 6.8, Procalcitonin 0.25 Treatment: IV Ceftrioxone, IV Azithromycin Question: Is Sepsis a clinically valid diagnosis? Sepsis was documented in the 05/21, 05/26 Cariology PN's with no further docume ntation in the medical record. Please document a response in Progress Note or Discharge Summary. 1. Yes, clinically valid, condition resolved. Present on admission 2. Yes, clinically valid, NOT present on admission 3. No, condition ruled out. 4. Other, with explanation of clinical findings. 5. Undetermined, no explanation for clinical findings. PHYSICIAN RESPONSE Diagnosis clinically valid: Yes, Conditon resolved Please remember a lack of response to the above will prompt a phone page by [facility] staff. In responding to this query, please exercise your independent professional judgment. The purpose of this communication is to more accurately reflect the complexity of your patients condition. The fact that a question is asked does not imply that any particular answer is desired or expected. Thank you for your timely response to this clarification. Requestors name: Samantha THIS PHYSICIAN QUERY FORM IS A PERMANENT PART OF THE MEDICAL RECORD JERALD CASON May 29, 2019 08:46 ABHINAV MCGILL MD May 29, 2019 12:27
[2019-05-30] MEDS ORDERED: MORP100S3 PO (11:11)
[2019-05-30] MEDS ORDERED: LORA2ORA5 PO (11:11)
== END 2019-05-27 13:12 | disposition swing bed (61) | DRG 871 ==
LOC: EDUNIT# 18:53 → ER 18:54 → ICU 20:00 → 4TH 05-20 14:41
PROVIDERS: ADMIT Family Medicine; ATTEND Family Medicine
DX: A41.9 Sepsis, unspecified organism (principal); I21.A1 Myocardial infarction type 2; I50.33 Acute on chronic diastolic (congestive) heart failure; J96.01 Acute respiratory failure with hypoxia; J18.9 Pneumonia, unspecified organism; I13.0 Hypertensive heart and chronic kidney disease with heart failure and stage 1 through stage 4 chronic kidney disease, or unspecified chronic kidney disease; J44.0 Chronic obstructive pulmonary disease with (acute) lower respiratory infection; J44.1 Chronic obstructive pulmonary disease with (acute) exacerbation; N17.9 Acute kidney failure, unspecified; D64.9 Anemia, unspecified; E78.00 Pure hypercholesterolemia, unspecified; E78.5 Hyperlipidemia, unspecified; M54.9 Dorsalgia, unspecified; G89.29 Other chronic pain; F32.9 Major depressive disorder, single episode, unspecified; H40.9 Unspecified glaucoma; I25.10 Atherosclerotic heart disease of native coronary artery without angina pectoris; K21.9 Gastro-esophageal reflux disease without esophagitis; M19.90 Unspecified osteoarthritis, unspecified site; E03.9 Hypothyroidism, unspecified; K22.70 Barrett's esophagus without dysplasia; N40.0 Benign prostatic hyperplasia without lower urinary tract symptoms; N18.9 Chronic kidney disease, unspecified; E83.52 Hypercalcemia; I34.0 Nonrheumatic mitral (valve) insufficiency; I27.20 Pulmonary hypertension, unspecified; Z99.81 Dependence on supplemental oxygen; Z87.891 Personal history of nicotine dependence
CPT/HCPCS: 36415; 71045; 71275; 78452; 80048; 80053; 81000; 82550; 82553; 82728; 82805; 82962; 83540; 83735; 83874; 83880; 84145; 84484; 85007; 85025; 85027; 85045; 85610; 85730; 86850; 86900; 86901; 86920; 87040; 87077; 87088; 87186; 87804; 93005; 93017; 93041; 93306; 94640; 94644; 94664; 94760; 96361; 96365; 96375